=== PATIENT | male | born 1970 | race Two or more races ===

== ENCOUNTER → 2023-10-14 | Outpatient (CLI) | payer MEDICAID ==
[~2023-10-14] VITALS: Ht 175.3 cm; Wt 78.5 kg
[~2023-10-14] MED LIST: ADENOSINE 66 MG in GIVE UN-DILUTED 0 ML IV ONE; ADENOSINE 90 MG/30 ML INJ IV ONE
== END | disposition home or self-care (01) ==
LOC: Rad HDHVI 09:27
PROVIDERS: ATTEND Internal Medicine Cardiovascular Disease
DX: I25.10 Atherosclerotic heart disease of native coronary artery without angina pectoris (principal); E78.00 Pure hypercholesterolemia, unspecified; R56.9 Unspecified convulsions; I25.2 Old myocardial infarction; R07.9 Chest pain, unspecified; Z82.49 Family history of ischemic heart disease and other diseases of the circulatory system; Z79.899 Other long term (current) drug therapy
CPT/HCPCS: 78452; 93005; 96374; 96375; A9500; J0153

== ENCOUNTER → 2023-10-15 | Outpatient (CLI) | payer MEDICAID | END | disposition home or self-care (01) | LOC: Rad HDHVI 10:46 | PROVIDERS: ATTEND Internal Medicine Cardiovascular Disease | DX: I08.1 Rheumatic disorders of both mitral and tricuspid valves (principal); I11.9 Hypertensive heart disease without heart failure | CPT/HCPCS: 93306 ==

== ENCOUNTER 2024-01-28 07:07 | Inpatient (IN) | payer MEDICAID ==
[2024-01-27 10:44] LABS: Basophils # (auto) 0.1 10 ^3/uL (0-0.2); Basophils % (auto) 0.5 % (0.0-2.0); Eosinophils # (auto) 0.1 10 ^3/uL (0-0.8); Eosinophils % (auto) 0.6 % (0.0-7.0); Hematocrit 36.3 % (41.0-53.0); Lymphocytes % (auto) 16.3 % (10.0-50.0); Mean Corpuscular Hgb Conc. 32.9 g/dL (32.0-36.0); Mean Corpuscular Volume 84.9 fL (80.0-100.0); Monocytes # (auto) 0.7 10 ^3/uL (0-1.3); Monocytes % (auto) 5.9 % (0.0-12.0); Neutrophils # (auto) 9.2 10 ^3/uL (1.6-8.6); Neutrophils % (auto) 76.7 % (37.0-80.0); Nucleated Red Blood Cells % 0.1 %; Red Blood Cells 4.28 10^6/uL (4.5-5.90); Red Cell Distribution Width 13.2 % (11.8-14.3)
[2024-01-27 11:05] LABS: INR 1.03 (0.9-1.15); Partial Thromboplastin Time 32.2 SEC (24.5-34.5); Prothrombin Time 10.9 sec (9.3-11.8)
[2024-01-27 11:06] LABS: Anion Gap 6 (5-15); Carbon Dioxide 27 mmol/L (20-30); Chloride 109 mmol/L (98-107); Potassium 3.6 mmol/L (3.5-5.1); Sodium 142 mmol/L (136-145)
[2024-01-27 11:07] LABS: Calcium 9.4 mg/dL (8.5-10.1)
[2024-01-27 11:12] LABS: BUN/Creatinine Ratio 7.1 (10.0-20.0); Blood Urea Nitrogen 6 mg/dL (9-23); Glucose 99 mg/dL (74-106)
[2024-01-28] VITALS (16 sets, daily range): BP systolic 105–130; BP diastolic 67–85; PULSE 60–82; RESP 12–20; TEMP 97.8–98.3; O2SAT 93–98
[~2024-01-28] VITALS: Ht 172.7 cm; Wt 85.0 kg
[~2024-01-28 07:07] MED LIST changes: -ADENOSINE 66 MG in GIVE UN-DILUTED 0 ML IV ONE; -ADENOSINE 90 MG/30 ML INJ IV ONE; +APIX5TAB PO; +FURO1TAB33 PO; +HYDR-4798 PO; +POTA-228 PO; +PREG100C PO
[2024-01-28] MEDS: IOHEXOL 350 MG/ML 100ML IJ ONE (07:54)
[2024-01-28] MEDS: LIDOCAINE 2%HCL (LOCAL ANESTH.) INJ 20ML MDV ONE (07:54)
[2024-01-28] MEDS ORDERED: LEVO25TA2 PO (08:04)
[2024-01-28] MEDS ORDERED: POM PO ×2 (08:07→08:23)
[2024-01-28] MEDS ORDERED: IPRAAER6 IN (08:18)
[2024-01-28] MEDS ORDERED: HYDR-4072 PO (08:18)
[2024-01-28] MEDS ORDERED: ACET-1803 PO (08:19)
[2024-01-28] MEDS: fentaNYL CITRATE 100 MCG/2 ML VL ONE (11:07)
[2024-01-28] MEDS: ANGIOMAX 250 MG VIAL IV ONE (11:07)
[2024-01-28] MEDS: MIDAZOLAM HCL 2MG/2ML 2ml VIAL (1mg/ml) ONE (11:07)
[2024-01-28] MEDS: SODIUM CHL 0.9% 0 ML ONE (11:08)
[2024-01-28] MEDS ORDERED: MORPHINE SULFATE INJ 2 MG/ml SYRG IV PRN (12:15)
[2024-01-28] MEDS ORDERED: NITROGLYCERIN 0.4 MG SL TAB SL PRN (12:15)
[2024-01-28] MEDS: HYDROcodone-ACET 10/325MG TAB ONE (14:03)
[2024-01-28] MEDS: HYDROcodone-ACET 10/325MG TAB PO PRN (14:04)
[2024-01-28] MEDS ORDERED: PATIENTS OWN MEDICATION (Pregabalin (Lyrica) 1 CAP) PO SCH (18:00)
[2024-01-28] MEDS: ALBUTEROL SULF 2.5 MG/0.5ML(0.5%) NEB SOLN NEB SCH (18:08)
[2024-01-28] MEDS: IPRATROPIUM BROM 0.5 MG/2.5ML INH SOL NEB SCH (18:08)
[2024-01-28] MEDS: PREGABALIN 25 MG CAP PO SCH (21:42)
[2024-01-28] MEDS: PREGABALIN CAPSULE 75 MG CAP PO SCH (21:43)
[2024-01-28] MEDS: FUROSEMIDE 20 MG TAB PO SCH (21:59)
[2024-01-28] MEDS ORDERED: IPRATROPIUM-ALBUTEROL 20mCg/100mCg INHALER IN SCH (22:00)
[2024-01-28] MEDS ORDERED: hydrOXYzine HCL 10 MG TAB PO PRN (22:00)
[2024-01-28] MEDS: MIRTAZAPINE 7.5 MG PO SCH (22:00)
[2024-01-28] MEDS ORDERED: ACETAMINOPHEN 650 MG PO PRN (22:00)
[2024-01-29] VITALS (12 sets, daily range): BP systolic 116–127; BP diastolic 56–81; PULSE 71–112; RESP 17–20; TEMP 96.8–98.7; O2SAT 95–99
[2024-01-29] MEDS: LEVOTHYROXINE SODIUM 25 MCG TAB PO SCH (10:14)
[2024-01-29] MEDS: APIXABAN 5 MG TAB PO SCH (10:14)
[2024-01-29] MEDS: POTASSIUM CHLORIDE 8 MEQ PO SCH (10:16)
[2024-01-29] MEDS: IPRATROPIUM BROM 0.5 MG/2.5ML INH SOL NEB SCH (21:06)
[2024-01-29] MEDS: ALBUTEROL SULF 2.5 MG/0.5ML(0.5%) NEB SOLN NEB SCH (21:06)
[2024-01-29] MEDS: FUROSEMIDE 20 MG TAB PO SCH (21:41)
[2024-01-30] VITALS (13 sets, daily range): BP systolic 109–126; BP diastolic 63–82; PULSE 64–90; RESP 16–18; TEMP 96.8–98.2; O2SAT 80–100
[2024-01-30] MEDS: APIXABAN 5 MG TAB PO SCH (06:31)
[2024-01-30] MEDS: LEVOTHYROXINE SODIUM 25 MCG TAB PO SCH (06:37)
[2024-01-30] MEDS: POTASSIUM CHLORIDE 8 MEQ PO SCH (06:40)
[2024-01-30 12:10] LABS: Alanine Aminotransferase 19 U/L (7-40); Albumin 4.7 g/dL (3.2-4.8); Alkaline Phosphatase 91 U/L (46-116); Anion Gap 3 (5-15); Aspartate Aminotransferase 13 U/L (13-40); BUN/Creatinine Ratio 6.7 (10.0-20.0); Blood Urea Nitrogen 6 mg/dL (9-23); Calcium 9.6 mg/dL (8.5-10.1); Carbon Dioxide 29 mmol/L (20-30); Chloride 109 mmol/L (98-107); Glucose 87 mg/dL (74-106); Potassium 3.3 mmol/L (3.5-5.1); Sodium 141 mmol/L (136-145)
[2024-01-30 12:11] LABS: Bilirubin, Total 1.3 mg/dL (0.2-1.0)
[2024-01-30] MEDS ORDERED: POTASSIUM EFFERVESENT TAB 25 MEQ PO PRN (13:00)
[2024-01-30] MEDS: POTASSIUM CHL 20 Meq TABLET PO PRN (14:52)
[2024-01-31] VITALS (12 sets, daily range): BP systolic 106–132; BP diastolic 66–89; PULSE 71–97; RESP 16–20; TEMP 97.5–98.4; O2SAT 96–100
[2024-02-01] VITALS (13 sets, daily range): BP systolic 107–142; BP diastolic 74–80; PULSE 64–93; RESP 15–18; TEMP 97.4–98.7; O2SAT 97–100
[2024-02-01 09:48] LABS: Basophils # (auto) 0.1 10 ^3/uL (0-0.2); Basophils % (auto) 0.8 % (0.0-2.0); Eosinophils # (auto) 0.1 10 ^3/uL (0-0.8); Eosinophils % (auto) 1.1 % (0.0-7.0); Hematocrit 41.9 % (41.0-53.0); Lymphocytes # (auto) 2.1 10 ^3/uL (0.4-5.4); Mean Corpuscular Hemoglobin 28.7 pg (28.0-32.0); Mean Corpuscular Hgb Conc. 33.3 g/dL (32.0-36.0); Mean Corpuscular Volume 86.4 fL (80.0-100.0); Monocytes # (auto) 0.7 10 ^3/uL (0-1.3); Monocytes % (auto) 7.4 % (0.0-12.0); Neutrophils # (auto) 6.2 10 ^3/uL (1.6-8.6); Neutrophils % (auto) 67.7 % (37.0-80.0); Nucleated Red Blood Cells % 0.1 %; Red Blood Cells 4.86 10^6/uL (4.5-5.90); Red Cell Distribution Width 13.6 % (11.8-14.3); White Blood Cell 9.1 10^3/uL (4.4-10.8)
[2024-02-01 10:15] LABS: Alanine Aminotransferase 21 U/L (7-40); Albumin 4.4 g/dL (3.2-4.8); Alkaline Phosphatase 84 U/L (46-116); Anion Gap 3 (5-15); Aspartate Aminotransferase 13 U/L (13-40); BUN/Creatinine Ratio 12.6 (10.0-20.0); Bilirubin, Total 0.9 mg/dL (0.2-1.0); Blood Urea Nitrogen 12 mg/dL (9-23); Calcium 9.8 mg/dL (8.5-10.1); Carbon Dioxide 27 mmol/L (20-30); Chloride 111 mmol/L (98-107); Glucose 81 mg/dL (74-106); Potassium 4.1 mmol/L (3.5-5.1); Sodium 141 mmol/L (136-145); Total Protein 7.1 g/dL (5.7-8.2)
[2024-02-02] VITALS (17 sets, daily range): BP systolic 98–144; BP diastolic 60–86; PULSE 71–96; RESP 16–20; TEMP 97.3–98.2; O2SAT 94–100
[2024-02-03] VITALS (15 sets, daily range): BP systolic 105–125; BP diastolic 70–81; PULSE 73–98; RESP 16–20; TEMP 97.9–98.5; O2SAT 96–100
[2024-02-04] VITALS (18 sets, daily range): BP systolic 106–129; BP diastolic 66–96; PULSE 78–111; RESP 14–20; TEMP 97.6–98.4; O2SAT 95–100
[2024-02-04 09:00] LABS: Urine Bacteria None Seen /hpf (None Seen)
[2024-02-04 09:12] LABS: Urine Blood Negative /uL (Negative); Urine Clarity Clear (Clear); Urine Color Light-Yellow (Yellow); Urine Protein, UAD Negative (Negative); Urine Specific Gravity 1.018 (1.001-1.035); Urine Urobilinogen Normal (Negative); Urine WBC 1 /hpf (0 - 3); Urine pH 6.5 (5.0-9.0)
[2024-02-04 09:47] LABS: Prothrombin Time 10.6 sec (9.3-11.8)
[2024-02-04] MEDS: MIDAZOLAM HCL 2MG/2ML 2ml VIAL (1mg/ml) ONE (12:50)
[2024-02-04] MEDS: fentaNYL CITRATE 100 MCG/2 ML VL ONE (12:50)
[2024-02-04] MEDS: VANCOMYCIN HCL 1000 MG VL ONE (12:50)
[2024-02-04] MEDS: LIDOCAINE 2%HCL (LOCAL ANESTH.) INJ 20ML MDV ONE (12:56)
[2024-02-04] MEDS: VANCOMYCIN 1GM/200ML 200 ML IV ONE (12:56)
[2024-02-04] MEDS: FUROSEMIDE 20 MG/2 ML VIAL ONE (14:02)
[2024-02-05] VITALS (7 sets, daily range): BP systolic 113–145; BP diastolic 65–78; PULSE 83–103; RESP 15–20; TEMP 98–98.3; O2SAT 92–100
[2024-02-05] MEDS: VANCOMYCIN 1GM/200ML 200 ML IV SCH (01:00)
== END 2024-02-05 16:50 | disposition home or self-care (01) | DRG 179 ==
LOC: CATH 07:07 → TELE 12:18 → TELE-CENTR 17:11
PROVIDERS: ADMIT Internal Medicine Cardiovascular Disease; ATTEND Internal Medicine Cardiovascular Disease
PROC: B211YZZ Fluoroscopy of Multiple Coronary Arteries using Other Contrast (ICD-10-PCS; principal; 2024-01-28)
PROC: B215YZZ Fluoroscopy of Left Heart using Other Contrast (ICD-10-PCS; 2024-01-28)
PROC: 4A023N7 Measurement of Cardiac Sampling and Pressure, Left Heart, Percutaneous Approach (ICD-10-PCS; 2024-01-28)
PROC: 0JH609Z Insertion of Cardiac Resynchronization Defibrillator Pulse Generator into Chest Subcutaneous Tissue and Fascia, Open Approach (ICD-10-PCS; 2024-02-04)
PROC: 02H63KZ Insertion of Defibrillator Lead into Right Atrium, Percutaneous Approach (ICD-10-PCS; 2024-02-04)
PROC: 02HL3KZ Insertion of Defibrillator Lead into Left Ventricle, Percutaneous Approach (ICD-10-PCS; 2024-02-04)
PROC: 02HK3KZ Insertion of Defibrillator Lead into Right Ventricle, Percutaneous Approach (ICD-10-PCS; 2024-02-04)
PROC: B5171ZZ Fluoroscopy of Left Subclavian Vein using Low Osmolar Contrast (ICD-10-PCS; 2024-02-04)
PROC: 4A0234Z Measurement of Cardiac Electrical Activity, Percutaneous Approach (ICD-10-PCS; 2024-02-04)
DX: I25.10 Atherosclerotic heart disease of native coronary artery without angina pectoris (principal); I47.20 Ventricular tachycardia, unspecified; E11.51 Type 2 diabetes mellitus with diabetic peripheral angiopathy without gangrene; I25.5 Ischemic cardiomyopathy; I11.0 Hypertensive heart disease with heart failure; R56.9 Unspecified convulsions; E78.5 Hyperlipidemia, unspecified; I50.22 Chronic systolic (congestive) heart failure; E87.6 Hypokalemia; Z89.611 Acquired absence of right leg above knee; Z86.73 Personal history of transient ischemic attack (TIA), and cerebral infarction without residual deficits; Z82.49 Family history of ischemic heart disease and other diseases of the circulatory system; Z83.3 Family history of diabetes mellitus; Z88.5 Allergy status to narcotic agent; Z79.899 Other long term (current) drug therapy; Z87.891 Personal history of nicotine dependence; I25.2 Old myocardial infarction; Z95.1 Presence of aortocoronary bypass graft
CPT/HCPCS: 33249; 36415; 71045; 80048; 80053; 81001; 83880; 85025; 85610; 85730; 86850; 86900; 86901; 93005; 93458; 93640; 94640; 99152; G0378; J2250; Q9967

== ENCOUNTER → 2024-03-15 | Outpatient (CLI) | payer MEDICAID ==
[~2024-03-15] MED LIST changes: +ACET-1803 PO; +IPRAAER6 IN; +LEVO25TA2 PO; +POM PO
[2024-03-15 09:10] VITALS: BP 124/77; PULSE 73; RESP 16; O2SAT 97
[2024-03-15 09:19] VITALS: BP 124/71; PULSE 73; RESP 16; O2SAT 97
== END | disposition home or self-care (01) ==
LOC: Rad HDHVI 08:52
PROVIDERS: ATTEND Internal Medicine Cardiovascular Disease
DX: Z01.818 Encounter for other preprocedural examination (principal); I65.21 Occlusion and stenosis of right carotid artery; Z95.0 Presence of cardiac pacemaker
CPT/HCPCS: 71046; 93005; G0463

== ENCOUNTER 2024-03-17 08:04 | Day surgery (SDC) | payer MEDICAID ==
[2024-03-15 11:51] LABS: Basophils # (auto) 0.1 10 ^3/uL (0-0.2); Basophils % (auto) 0.7 % (0.0-2.0); Eosinophils # (auto) 0.1 10 ^3/uL (0-0.8); Eosinophils % (auto) 0.7 % (0.0-7.0); Hematocrit 36.3 % (41.0-53.0); Hemoglobin 12.3 g/dL (13.5-17.5); Lymphocytes # (auto) 2.2 10 ^3/uL (0.4-5.4); Lymphocytes % (auto) 23.5 % (10.0-50.0); Mean Corpuscular Hemoglobin 28.5 pg (28.0-32.0); Mean Corpuscular Hgb Conc. 33.9 g/dL (32.0-36.0); Mean Corpuscular Volume 83.9 fL (80.0-100.0); Monocytes # (auto) 0.7 10 ^3/uL (0-1.3); Monocytes % (auto) 7.3 % (0.0-12.0); Neutrophils # (auto) 6.2 10 ^3/uL (1.6-8.6); Neutrophils % (auto) 67.8 % (37.0-80.0); Nucleated Red Blood Cells % 0.1 %; Platelet Count (auto) 287 10^3/uL (140-450); Red Blood Cells 4.33 10^6/uL (4.5-5.90); Red Cell Distribution Width 13.6 % (11.8-14.3); White Blood Cell 9.2 10^3/uL (4.4-10.8)
[2024-03-15 12:07] LABS: INR 1.06 (0.9-1.15); Partial Thromboplastin Time 34.6 SEC (24.5-34.5); Prothrombin Time 11.2 sec (9.3-11.8)
[2024-03-15 12:21] LABS: Chloride 109 mmol/L (98-107); Potassium 3.7 mmol/L (3.5-5.1); Sodium 141 mmol/L (136-145)
[2024-03-15 12:22] LABS: Anion Gap 6 (5-15); Calcium 9.5 mg/dL (8.7-10.4); Carbon Dioxide 26 mmol/L (20-30)
[2024-03-15 12:27] LABS: BUN/Creatinine Ratio 11.1 (10.0-20.0); Blood Urea Nitrogen 10 mg/dL (9-23); Glucose 112 mg/dL (74-106)
[2024-03-17] VITALS (9 sets, daily range): BP systolic 94–121; BP diastolic 70–87; PULSE 69–87; RESP 12–18; O2SAT 93–100
[~2024-03-17] VITALS: Ht 175.3 cm; Wt 79.8 kg
[~2024-03-17 08:04] MED LIST changes: -POM PO
[2024-03-17] MEDS ORDERED: ANGIOMAX 250 MG VIAL IV ONE (09:30)
[2024-03-17] MEDS ORDERED: LIDOCAINE 2%HCL (LOCAL ANESTH.) INJ 20ML MDV ONE ×2 (09:31→09:53)
[2024-03-17] MEDS ORDERED: MIDAZOLAM HCL 2MG/2ML 2ml VIAL (1mg/ml) ONE (09:31)
[2024-03-17] MEDS ORDERED: SODIUM CHL 0.9% 50 ML ONE (09:31)
[2024-03-17] MEDS ORDERED: fentaNYL CITRATE 100 MCG/2 ML VL ONE (09:31)
[2024-03-17] MEDS ORDERED: ATROPINE SULF 1 MG/10ml SYR ONE (09:40)
[2024-03-17] MEDS ORDERED: HYDROmorphone HCL 2 MG/ML VL/or syr ONE (09:55)
[2024-03-17] MEDS ORDERED: CLOPIDOGREL BISULFATE 75 MG TAB ONE (10:11)
== END 2024-03-17 12:49 | disposition home or self-care (01) ==
LOC: CATH 08:04
PROVIDERS: ATTEND Internal Medicine Cardiovascular Disease
DX: R07.9 Chest pain, unspecified (principal); I25.10 Atherosclerotic heart disease of native coronary artery without angina pectoris; I25.84 Coronary atherosclerosis due to calcified coronary lesion; I11.0 Hypertensive heart disease with heart failure; I50.9 Heart failure, unspecified; R06.02 Shortness of breath; Z95.5 Presence of coronary angioplasty implant and graft; Z87.891 Personal history of nicotine dependence; Z82.49 Family history of ischemic heart disease and other diseases of the circulatory system; Z81.0 Family history of intellectual disabilities
CPT/HCPCS: 36415; 80048; 85025; 85610; 85730; 93458; C1724; C1760; C1769; C1874; C1887; C1894; C9602; J0583; J1170; J1644; J2250; J3010; 99152; C9601

== ENCOUNTER 2024-04-15 14:28 | Inpatient (IN) | payer MEDICAID ==
[~2024-04-15] VITALS: Ht 175.3 cm; Wt 80.5 kg
[2024-04-15 15:13] LABS: Basophils # (auto) 0 10 ^3/uL (0-0.2); Basophils % (auto) 0.4 % (0.0-2.0); Eosinophils # (auto) 0.1 10 ^3/uL (0-0.8); Eosinophils % (auto) 0.6 % (0.0-7.0); Hematocrit 36.3 % (41.0-53.0); Hemoglobin 12.3 g/dL (13.5-17.5); Lymphocytes # (auto) 1.9 10 ^3/uL (0.4-5.4); Lymphocytes % (auto) 17.3 % (10.0-50.0); Mean Corpuscular Volume 85.1 fL (80.0-100.0); Monocytes # (auto) 0.7 10 ^3/uL (0-1.3); Monocytes % (auto) 6.3 % (0.0-12.0); Neutrophils # (auto) 8.2 10 ^3/uL (1.6-8.6); Neutrophils % (auto) 75.4 % (37.0-80.0); Nucleated Red Blood Cells % 0.2 %; Platelet Count (auto) 260 10^3/uL (140-450); Red Blood Cells 4.26 10^6/uL (4.5-5.90); Red Cell Distribution Width 13.9 % (11.8-14.3); White Blood Cell 10.9 10^3/uL (4.4-10.8)
[2024-04-15] MEDS: SODIUM CHLORIDE 0.9% 1,000 ML IV ONE ×2 (15:23→16:35)
[2024-04-15 15:26] LABS: Chloride 112 mmol/L (98-107); Potassium 3.6 mmol/L (3.5-5.1); Sodium 142 mmol/L (136-145)
[2024-04-15 15:27] LABS: Anion Gap 4 (5-15); Calcium 9.3 mg/dL (8.7-10.4); Carbon Dioxide 26 mmol/L (20-30)
[2024-04-15 15:32] LABS: BUN/Creatinine Ratio 13.7 (10.0-20.0); Blood Urea Nitrogen 13 mg/dL (9-23); Glucose 90 mg/dL (74-106)
[2024-04-15 15:46] VITALS: PULSE 59; RESP 18; O2SAT 98
[2024-04-15 19:30] VITALS: RESP 17; O2SAT 94
[2024-04-15] MEDS: HYDROcodone-ACET 10/325MG TAB PO ONE (20:38)
[2024-04-15] MEDS: PREGABALIN 25 MG CAP PO ONE (20:39)
[2024-04-15] MEDS ORDERED: ONDANSETRON HCL 4 MG/2 ML VIAL IV PRN (23:15)
[2024-04-15] MEDS ORDERED: ACETAMINOPHEN 325 MG TAB PO PRN (23:15)
[2024-04-15] MEDS ORDERED: DOCUSATE SOD 100 MG CAP PO PRN (23:15)
[2024-04-15] MEDS: SODIUM CHLORIDE 0.9% 1,000 ML IV SCH (23:28)
[2024-04-15] MEDS ORDERED: NITROGLYCERIN 0.4 MG SL TAB SL PRN (23:30)
[2024-04-15] MEDS ORDERED: MORPHINE SULFATE INJ 2 MG/ml SYRG IV PRN (23:30)
[2024-04-16 02:15] VITALS: BP 119/71; PULSE 69; RESP 17; TEMP 97.7; O2SAT 96
[2024-04-16] MEDS ORDERED: PAR20T PO (02:23)
[2024-04-16 04:26] LABS: Basophils # (auto) 0.1 10 ^3/uL (0-0.2); Basophils % (auto) 0.6 % (0.0-2.0); Eosinophils # (auto) 0.1 10 ^3/uL (0-0.8); Eosinophils % (auto) 0.9 % (0.0-7.0); Hemoglobin 11.2 g/dL (13.5-17.5); Lymphocytes # (auto) 2.1 10 ^3/uL (0.4-5.4); Lymphocytes % (auto) 24.2 % (10.0-50.0); Mean Corpuscular Hemoglobin 28.4 pg (28.0-32.0); Monocytes # (auto) 0.6 10 ^3/uL (0-1.3); Monocytes % (auto) 7.2 % (0.0-12.0); Neutrophils # (auto) 5.8 10 ^3/uL (1.6-8.6); Neutrophils % (auto) 67.1 % (37.0-80.0); Platelet Count (auto) 234 10^3/uL (140-450); Red Blood Cells 3.95 10^6/uL (4.5-5.90); Red Cell Distribution Width 13.6 % (11.8-14.3); White Blood Cell 8.6 10^3/uL (4.4-10.8)
[2024-04-16 04:48] LABS: Alanine Aminotransferase 12 U/L (7-40); Albumin 3.7 g/dL (3.2-4.8); Alkaline Phosphatase 67 U/L (46-116); Anion Gap 6 (5-15); Aspartate Aminotransferase 10 U/L (13-40); BUN/Creatinine Ratio 16.3 (10.0-20.0); Bilirubin, Total 1.8 mg/dL (0.2-1.0); Blood Urea Nitrogen 13 mg/dL (9-23); Calcium 8.7 mg/dL (8.7-10.4); Carbon Dioxide 23 mmol/L (20-30); Chloride 114 mmol/L (98-107); Glucose 96 mg/dL (74-106); Potassium 3.5 mmol/L (3.5-5.1); Sodium 143 mmol/L (136-145); Total Protein 6.2 g/dL (5.7-8.2)
[2024-04-16 05:00] VITALS: BP 110/66; PULSE 73; RESP 17; TEMP 98; O2SAT 95
[2024-04-16] MEDS: LEVOTHYROXINE SODIUM 25 MCG TAB PO SCH (06:01)
[2024-04-16 09:00] VITALS: BP 111/70; PULSE 77; RESP 18; TEMP 98.4; O2SAT 98
[2024-04-16] MEDS: PREGABALIN 25 MG CAP PO SCH (09:53)
[2024-04-16] MEDS: APIXABAN 5 MG TAB PO SCH (09:55)
== END 2024-04-16 12:08 | disposition left against medical advice (07) | DRG 815 ==
LOC: EDBD 14:28 → ER 14:28 → TELE 23:19 → TELE-WESTW 04-16 02:01
PROVIDERS: ADMIT Nurse Practitioner Family; ATTEND Nurse Practitioner Family
DX: T67.5XXA Heat exhaustion, unspecified, initial encounter (principal); Z89.611 Acquired absence of right leg above knee; I25.2 Old myocardial infarction; R11.2 Nausea with vomiting, unspecified; Z88.5 Allergy status to narcotic agent; Z98.61 Coronary angioplasty status; X30.XXXA Exposure to excessive natural heat, initial encounter; Y93.89 Activity, other specified; Y92.89 Other specified places as the place of occurrence of the external cause; Y99.8 Other external cause status
CPT/HCPCS: 36415; 80048; 80053; 84443; 84484; 85025; 96360; 96361; 99291; G0378

== ENCOUNTER 2024-04-28 06:33 | Day surgery (SDC) | payer MEDICAID ==
[2024-04-26 11:51] LABS: Basophils # (auto) 0 10 ^3/uL (0-0.2); Basophils % (auto) 0.5 % (0.0-2.0); Eosinophils # (auto) 0 10 ^3/uL (0-0.8); Eosinophils % (auto) 0.4 % (0.0-7.0); Hematocrit 36.6 % (41.0-53.0); Hemoglobin 12.3 g/dL (13.5-17.5); Lymphocytes # (auto) 1.9 10 ^3/uL (0.4-5.4); Lymphocytes % (auto) 18.5 % (10.0-50.0); Mean Corpuscular Hemoglobin 28.8 pg (28.0-32.0); Mean Corpuscular Hgb Conc. 33.6 g/dL (32.0-36.0); Mean Corpuscular Volume 85.7 fL (80.0-100.0); Monocytes # (auto) 0.6 10 ^3/uL (0-1.3); Monocytes % (auto) 6.2 % (0.0-12.0); Neutrophils # (auto) 7.6 10 ^3/uL (1.6-8.6); Neutrophils % (auto) 74.4 % (37.0-80.0); Platelet Count (auto) 297 10^3/uL (140-450); Red Blood Cells 4.27 10^6/uL (4.5-5.90); Red Cell Distribution Width 13.7 % (11.8-14.3); White Blood Cell 10.3 10^3/uL (4.4-10.8)
[2024-04-26 12:00] LABS: Chloride 110 mmol/L (98-107); Potassium 3.3 mmol/L (3.5-5.1); Sodium 142 mmol/L (136-145)
[2024-04-26 12:01] LABS: Anion Gap 6 (5-15); Carbon Dioxide 26 mmol/L (20-30)
[2024-04-26 12:02] LABS: Calcium 9.2 mg/dL (8.7-10.4)
[2024-04-26 12:06] LABS: Glucose 94 mg/dL (74-106)
[2024-04-26 12:07] LABS: BUN/Creatinine Ratio 8.2 (10.0-20.0); Blood Urea Nitrogen 7 mg/dL (9-23)
[2024-04-26 12:13] LABS: INR 1.01 (0.9-1.15); Partial Thromboplastin Time 29.1 SEC (24.5-34.5); Prothrombin Time 10.9 sec (9.3-11.8)
[~2024-04-28] VITALS: Ht 175.3 cm; Wt 80.3 kg
[2024-04-28] VITALS (7 sets, daily range): BP systolic 120–134; BP diastolic 71–90; PULSE 72–93; RESP 14–16; O2SAT 94–97
[~2024-04-28 06:33] MED LIST changes: -APIX5TAB PO; +CLOP75TA28 PO; +HYDRX10T PO; +MIRT1TAB38 PO
[2024-04-28] MEDS ORDERED: MIDAZOLAM HCL 2MG/2ML 2ml VIAL (1mg/ml) ONE (08:17)
[2024-04-28] MEDS ORDERED: fentaNYL CITRATE 100 MCG/2 ML VL ONE (08:17)
[2024-04-28] MEDS ORDERED: ANGIOMAX 250 MG VIAL IV ONE (08:17)
[2024-04-28] MEDS ORDERED: LIDOCAINE 2%HCL (LOCAL ANESTH.) INJ 20ML MDV ONE (08:18)
[2024-04-28] MEDS ORDERED: SODIUM CHL 0.9% 50 ML ONE (08:18)
[2024-04-28] MEDS: CLOPIDOGREL BISULFATE 75 MG TAB PO ONE (10:05)
== END 2024-04-28 11:28 | disposition home or self-care (01) ==
LOC: CATH 06:33
PROVIDERS: ATTEND Internal Medicine Cardiovascular Disease
DX: R06.02 Shortness of breath (principal); I25.10 Atherosclerotic heart disease of native coronary artery without angina pectoris; I11.0 Hypertensive heart disease with heart failure; I50.9 Heart failure, unspecified; Z95.5 Presence of coronary angioplasty implant and graft; Z87.891 Personal history of nicotine dependence; Z88.5 Allergy status to narcotic agent; Z88.6 Allergy status to analgesic agent; Z81.8 Family history of other mental and behavioral disorders; Z82.49 Family history of ischemic heart disease and other diseases of the circulatory system; Z79.01 Long term (current) use of anticoagulants
CPT/HCPCS: 36415; 80048; 85025; 85610; 85730; 92972; 93454; C1760; C1761; C1769; C1874; C1887; C1894; C9600; J0583; J1644; J2250; J3010; J7030; Q9967; 99152; 99153

== ENCOUNTER → 2024-05-31 | Outpatient (CLI) | payer MEDICAID | END | disposition home or self-care (01) | LOC: Rad HDHVI 08:17 | PROVIDERS: ATTEND Internal Medicine Cardiovascular Disease | DX: I08.1 Rheumatic disorders of both mitral and tricuspid valves (principal); I11.0 Hypertensive heart disease with heart failure; I50.23 Acute on chronic systolic (congestive) heart failure | CPT/HCPCS: 93306 ==

== ENCOUNTER 2024-10-03 12:21 | Inpatient (IN) | payer MEDICAID ==
[~2024-10-03] VITALS: Ht 175.3 cm; Wt 78.9 kg
[~2024-10-03 12:21] MED LIST changes: +ATOR80TA PO; +MIRT1TAB PO; +NALO1TAB4 PO; +POTA-180 PO; +PREG150C63 PO
[2024-10-03 13:05] LABS: Basophils # (auto) 0.1 10 ^3/uL (0-0.2); Basophils % (auto) 0.5 % (0.0-2.0); Eosinophils # (auto) 0 10 ^3/uL (0-0.8); Eosinophils % (auto) 0.3 % (0.0-7.0); Hematocrit 34.7 % (41.0-53.0); Hemoglobin 11.4 g/dL (13.5-17.5); Lymphocytes # (auto) 2.3 10 ^3/uL (0.4-5.4); Mean Corpuscular Hgb Conc. 32.9 g/dL (32.0-36.0); Mean Corpuscular Volume 85.3 fL (80.0-100.0); Monocytes # (auto) 0.7 10 ^3/uL (0-1.3); Monocytes % (auto) 5.7 % (0.0-12.0); Neutrophils # (auto) 9.7 10 ^3/uL (1.6-8.6); Neutrophils % (auto) 75.5 % (37.0-80.0); Platelet Count (auto) 225 10^3/uL (140-450); Red Blood Cells 4.07 10^6/uL (4.5-5.90); Red Cell Distribution Width 13.6 % (11.8-14.3); White Blood Cell 12.9 10^3/uL (4.4-10.8)
--- NOTE | 2024-10-03 13:08 | DVH ---
CHEST RADIOGRAPH Indication: CP/sob Technique: Single frontal view of the chest was obtained COMPARISON: None FINDINGS: Lines and Tubes: Left chest wall AICD Lungs: Congestion Pleura: No effusion. No pneumothorax. Cardiomediastinal contours: Unremarkable Bones: Unremarkable IMPRESSION: Pulmonary vascular congestion
[2024-10-03 13:23] LABS: Alanine Aminotransferase 13 U/L (7-40); Albumin 4.6 g/dL (3.2-4.8); Alkaline Phosphatase 105 U/L (46-116); Anion Gap 6 (5-15); Aspartate Aminotransferase 28 U/L (13-40); BUN/Creatinine Ratio 12.9 (10.0-20.0); Blood Urea Nitrogen 12 mg/dL (9-23); Calcium 9.5 mg/dL (8.7-10.4); Carbon Dioxide 26 mmol/L (20-31); Glucose 98 mg/dL (74-106); Magnesium 2.1 mg/dL (1.6-2.6); Potassium 3.9 mmol/L (3.5-5.1); Sodium 142 mmol/L (136-145)
[2024-10-03 13:24] LABS: Total Protein 7.4 g/dL (5.7-8.2)
[2024-10-03 13:25] LABS: Bilirubin, Total 2.1 mg/dL (0.2-1.0); Chloride 110 mmol/L (98-107)
[2024-10-03] MEDS: IPRATROPIUM BROM 0.5 MG/2.5ML INH SOL NEB ONE (14:22)
[2024-10-03] MEDS: ALBUTEROL SULF 2.5 MG/0.5ML(0.5%) NEB SOLN NEB ONE (14:22)
--- NOTE | 2024-10-03 14:24 | ED.PDOC ---
HPI Comments 54 y.o male with PMHx of CHF, DC x4 and pneumonia, presents to the ED for a chief complaint of SOB associated with substernal chest pain induced by a productive cough last night. Patient described chest pain as more of an irritation, non radiating and not actively present at this time. Patient had similar SOB in the past in which he was diagnosed with pneumonia usually after flying. Patient does admit recently flying and PCP referred him to the ED to rule out pneumonia and/or CHF today. Patient denies any leg swelling, chills, fever, nausea, vomiting, abdominal pain. Patient has a previous history of tobacco use but quit 5 years ago. Patient is on Lasix and has been compliant with taking it with the rest of his medications. Chief Complaint: Chest Pain Time Seen by MD: 13:56 Primary Care Provider: dia Reviewed Notes: Nurses Notes, Medications, Allergies Allergies: Coded Allergies: Codeine (Verified Allergy, Unknown, 04/26/24) Morphine (Verified Allergy, Unknown, 04/26/24) Home Meds Reported Medications Hydroxyzine Hcl (Hydroxyzine Hcl) 10 Mg Tab, 10 MG PO HS, MG 04/26/24 Mirtazapine (Mirtazapine Oral Disintegrating Tablet) 15 Mg Tab, 0.5 TAB PO QPM, #30 TAB 3 Refills 04/26/24 Clopidogrel Bisulfate (Plavix) 75 Mg Tab, 1 TAB PO DAILY for SP STENT, #90 TAB 1 Refill 04/26/24 Acetaminophen (Acetaminophen ER 8 Hour) 650 Mg Tab, 650 MG PO PRN, TAB 01/28/24 Ipratropium-Albuterol (COMBIVENT RESPIMAT) Respimat Aer, 20 MCG IN BID, AER 01/28/24 Levothyroxine Sodium (Synthroid) 25 Mcg Tab, 1 TAB PO DAILY, #30 TAB 5 Refills 01/28/24 Pregabalin (Lyrica) 100 Mg Cap, 1 CAP PO QID for NERVE PAIN, #90 CAP 2 Refills 01/27/24 Hydrocodone-Acetaminophen (Hydrocodone Bitartrate/AC 10-325 mg) 1 Tab Tab, 1 TAB PO TIDP PRN for PAIN SCALE 7 THRU 10, TAB 01/27/24 Furosemide (Lasix) 20 Mg Tb, 1 TAB PO BID for EDEMA, #90 TAB 1 Refill 01/27/24 Potassium Chloride (Potassium Chloride ER) 10 Meq Tab, 8 MEQ PO DAILY for SUPPLEMENT, TAB 01/27/24 Information Source: Patient, Spouse Mode of Arrival: Wheelchair Severity: Moderate Timing: Hours Duration: Since onset Location: Substernal Radiation: No Radiation Quality: Aching Onset: At Rest PE Risk Factors: None History of: Similar pain in past, DC Modifying Factors: Nothing Associated Signs and Symptoms: SOB Past Medical History PAST MEDICAL HISTORY: CAD, CHF, DC (4) Past Medical History (Other): PNA Surgical History: AKA (right ), PTCA Surgical History (Other): ICD Family History Family History: Unknown Social History Smoker: Non-Smoker Alcohol: Occasionally Drugs: Marijuana Lives In: Home Constitutional: denies: chills, diaphoresis, fatigue, fever, malaise, sweats, weakness, others EENTM: denies: blurred vision, double vision, ear bleeding, ear discharge, ear drainage, ear pain, ear ringing, eye pain, eye redness, hearing loss, mouth pain, mouth swelling, nasal discharge, nose bleeding, nose congestion, nose pain, photophobia, tearing, throat pain, throat swelling, voice changes, others Respiratory: reports: cough, SOB at rest, shortness of breath, SOB with excertion; denies: hemoptysis, orthopnea, stridor, wheezing, others Cardiovascular: reports: chest pain; denies: dizzy spells, diaphoresis, Dyspnea on exertion, edema, irregular heart beat, left arm pain, lightheadedness, palpitations, PND, syncope, others Gastrointestinal: denies: abdomen distended, abdominal pain, blood streaked bowels, constipated, diarrhea, dysphagia, difficulty swallowing, hematemesis, melena, nausea, poor appetite, poor fluid intake, rectal bleeding, rectal pain, vomiting, others Genitourinary: denies: burning, dysuria, flank pain, frequency, hematuria, incontinence, penile discharge, penile sore, pain, testicle pain, testicle swelling, urgency, others Neurological: denies: dizziness, fainting, headache, left sided numbness, left sided weakness, numbness, paresthesia, pre-existing deficit, right sided numbness, right sided weakness, seizure, speech problems, tingling, tremors, weakness, others Musculoskeletal: denies: back pain, gout, joint pain, joint swelling, muscle pain, muscle stiffness, neck pain, others Integumetry: denies: bruises, change in color, change in hair/nails, dryness, laceration, lesions, lumps, rash, wounds, others Allergic/Immunocompromised: denies: Difficulty Healing, Frequent Infections, Hives, Itching, others Hematologic/Lymphatic: denies: anemia, blood clots, easy bleeding, easy bruising, swollen glands, others Endocrine: denies: excessive hunger, excessive sweating, excessive thirst, excessive urination, flushing, intolerance to cold, intolerance to heat, unexplained weight gain, unexplained weight loss, others Psychiatric: denies: anxiety, bipolar disorder, depression, hopeless, panic disorder, schizophrenia, sleepless, suicidal, others All Other Systems: Reviewed and Negative Physical Exam General Appearance: Mild Distress HEENT: Other (Pupils symmetric, moist mucous membranes, no facial asymmetry) Neck: Full Range of Motion, Normal Inspection Respiratory: Crackles, No Accessory Muscle Use, No Respiratory Distress, Normal Breath Sounds, Rales Cardiovascular: No JVD, Regular Rate/Rhythm Breast Exam: Deferred Gastrointestinal: Non Tender, Soft Genitalia: Deferred Pelvic: Deferred Rectal: Deferred Extremities: Leg edema (Trace left), Pedal edema (Trace left), Other (Right AKA) Neurologic: Alert (Oriented x4), Normal Affect, Normal Mood, Other (Moves all extremities. No gross focal deficit.) Cerebellar Function: NOT DONE Reflexes: NOT DONE Skin: Dry, Normal Color, Warm Lymphatic: NOT DONE EKG EKG : Comments Atrial sensed ventricular paced rhythm, rate 92 Was a procedure done? Was a procedure done?: No CP Differential Dx Differential Diagnosis: Angina, Anxiety / Panic Attack, Heart Failure, DC, Pulmonary Embolus Differential Diagnosis: CHF Differential Diagnosis: Angina, Chest Wall Pain, Costochondritis, Gastritis, Myocardial Infarction, Pericarditis, Pneumonia, Pulmonary Embolus X-Ray, Labs, Meds, VS Vital Signs Date Time Temp Pulse Resp B/P (MAP) Pulse Ox O2 Delivery O2 Flow Rate FiO2 10/03/24 20:00 97 22 114/77 (89) 96 10/03/24 20:00 98.0 98.0 10/03/24 20:00 95 10/03/24 19:53 94.0 93 16 116/77 97 0.0 94.0 10/03/24 19:50 97 Room Air* 0 21 10/03/24 19:50 97 Room Air 0.0 10/03/24 18:00 94 16 117/80 (92) 95 10/03/24 17:00 99 14 108/93 (98) 93 10/03/24 16:00 98 23 121/79 (93) 94 10/03/24 15:28 121/86 10/03/24 15:00 82 24 121/86 (98) 98 10/03/24 14:30 Room Air* 0 N/A Nasal Cannula* 10/03/24 14:29 88 14 114/79 (91) 98 10/03/24 14:22 18 97 Room Air* 0 21 10/03/24 12:35 98.0 88 17 109/77 (88) 100 10/03/24 12:28 92 Lab Test 10/03/24 17:53 10/03/24 15:29 10/03/24 13:47 10/03/24 12:36 Range/Units Prothrombin Time 11.1 9.3-11.8 sec Prothrombin Time INR 1.05 0.9-1.15 Activated Partial Thromboplast Time 31.5 24.5-34.5 SEC Troponin I High Sensitivity 4299 *H 4402 *H 3900 *H </=54 ng/L White Blood Count 12.9 H 4.4-10.8 10^3/uL Red Blood Count 4.07 L 4.5-5.90 10^6/uL Hemoglobin 11.4 L 13.5-17.5 g/dL Hematocrit 34.7 L 41.0-53.0 % Mean Corpuscular Volume 85.3 80.0-100.0 fL Mean Corpuscular Hemoglobin 28.0 28.0-32.0 pg Mean Corpuscular Hemoglobin Concent 32.9 32.0-36.0 g/dL Red Cell Distribution Width 13.6 11.8-14.3 % Platelet Count 225 140-450 10^3/uL Mean Platelet Volume 10.1 6.9-10.8 fL Neutrophils (%) (Auto) 75.5 37.0-80.0 % Lymphocytes (%) (Auto) 18.0 10.0-50.0 % Monocytes (%) (Auto) 5.7 0.0-12.0 % Eosinophils (%) (Auto) 0.3 0.0-7.0 % Basophils (%) (Auto) 0.5 0.0-2.0 % Neutrophils # (Auto) 9.7 H 1.6-8.6 10 ^3/uL Lymphocytes # (Auto) 2.3 0.4-5.4 10 ^3/uL Monocytes # (Auto) 0.7 0-1.3 10 ^3/uL Eosinophils # (Auto) 0 0-0.8 10 ^3/uL Basophils # (Auto) 0.1 0-0.2 10 ^3/uL Nucleated Red Blood Cells 0.0 % D-Dimer, Quantitative 0.84 H 0.0-0.49 mg/L FEU Sodium Level 142 136-145 mmol/L Potassium Level 3.9 3.5-5.1 mmol/L Chloride Level 110 H 98-107 mmol/L Carbon Dioxide Level 26 20-31 mmol/L Anion Gap 6 5-15 Blood Urea Nitrogen 12 9-23 mg/dL Creatinine 0.93 0.700-1.30 mg/dL Glomerular Filtration Rate Calc 96 >90 mL/min BUN/Creatinine Ratio 12.9 10.0-20.0 Serum Glucose 98 74-106 mg/dL Calcium Level 9.5 8.7-10.4 mg/dL Magnesium Level 2.1 1.6-2.6 mg/dL Total Bilirubin 2.1 H 0.2-1.0 mg/dL Aspartate Amino Transferase (AST) 28 13-40 U/L Alanine Aminotransferase (ALT) 13 7-40 U/L Alkaline Phosphatase 105 46-116 U/L B-Type Natriuretic Peptide 825.98 0-100 pg/mL Total Protein 7.4 5.7-8.2 g/dL Albumin 4.6 3.2-4.8 g/dL Thyroid Stimulating Hormone (TSH) 0.51 L 0.55-4.78 uIU/mL Current Medications Medications (Trade) Dose Ordered Sig/Jackie Route Start Time Stop Time Status Last Admin Albuterol (Ventolin Medneb) 5 mg ONCE ONCE NEB 10/03/24 14:15 10/03/24 14:16 DC 10/03/24 14:22 Ipratropium [place] (Atrovent Medneb) 0.5 mg ONCE ONCE NEB 10/03/24 14:15 10/03/24 14:16 DC 10/03/24 14:22 Furosemide (Lasix Injection) 40 mg ONCE ONCE IV 10/03/24 14:15 10/03/24 14:16 DC 10/03/24 15:28 Heparin Sodium/ Dextrose 250 ml @ 10 mls/hr Q24H IV 10/03/24 17:00 10/03/24 17:14 [place] [id number] Ph: [phone] DIAGNOSTIC IMAGING Diagnostic Imaging Report : [id number] Signed PATIENT: DONA BRYANT FACCT: [id number] UNIT: [id number] : 1970 LOC: ER ROOM / BED: / AGE / SEX: 54 / M ADM STATUS: REG ER SERVICE [id number] ORDERING PHYSICIAN: INDU WING MD PROCEDURE(s): CXRP - CHEST PORTABLE REASON: CP/sob ORDER NUMBER(s): [id number], ACCESSION NUMBER(s): [id number] CHEST RADIOGRAPH Indication: CP/sob Technique: Single frontal view of the chest was obtained COMPARISON: None FINDINGS: Lines and Tubes: Left chest wall AICD Lungs: Congestion Pleura: No effusion. No pneumothorax. Cardiomediastinal contours: Unremarkable Bones: Unremarkable IMPRESSION: Pulmonary vascular congestion ATED BY: PETE RICE MD DICTATED DATE/TIME: 10/03/24 1306 SIGNED BY: PETE RICE MD SIGNED DATE/TIME: 10/03/24 1306 CC: PROCEDURE(s): CTACH - CT ANGIO CHEST CONTRAST REASON: cp, hi dimer and trop, r/o PE ORDER NUMBER(s): [id number], ACCESSION NUMBER(s): [id number] EXAM: CT Angiography Chest With Intravenous Contrast CLINICAL INDICATION: cp, hi dimer and trop, r/o PE TECHNIQUE: Axial computed tomographic angiography images of the chest with intravenous contrast. This CT exam was performed using one or more of the following dose reduction techniques: automated exposure control, adjustment of the mA and/or kV according to patient size, and/or use of iterative reconstruction technique. MIP reconstructed images were created and reviewed. CONTRAST: COMPARISON: Comparison FINDINGS: LIMITATIONS: Suboptimal opacification of the pulmonary arteries. PULMONARY ARTERIES: No pulmonary embolism is identified. Some of the distal pulmonary arteries cannot be evaluated due to suboptimal opacification. AORTA: Scattered calcified atherosclerotic disease of aorta. No thoracic aortic aneurysm. LUNGS AND PLEURAL SPACES: Lung emphysema. Dependent atelectasis. No mass. No significant effusion. No pneumothorax. HEART: Unremarkable. No cardiomegaly. No significant pericardial effusion. No evidence of RV dysfunction. MEDIASTINUM: Small esophageal hiatal hernia. BONES/JOINTS: No acute fracture. No dislocation. SOFT TISSUES: Unremarkable. LYMPH NODES: Unremarkable. No enlarged lymph nodes. LIVER: Hepatic cysts. OTHER FINDINGS: . . . .. IMPRESSION: 1. No pulmonary embolism is identified. Some of the distal pulmonary arteries cannot be evaluated due to suboptimal opacification. 2. Small esophageal hiatal hernia. X-Ray, Labs, Meds, VS Comment 54-year-old male with history of CHF, Coronary artery disease, DC complaining of chest pain and shortness of breath after a plane flight Vitals unremarkable Exam remarkable for bilateral rales, no respiratory distress at rest, trace lower extremity edema Rhythm strip independently interpreted by me: Atrial sensed ventricular paced rhythm, rate 92, no ectopy. EKG atrial sensed ventricular paced rhythm at rate 92 Chest x-ray pulmonary vascular congestion CT angio chest IMPRESSION: 1. No pulmonary embolism is identified. Some of the distal pulmonary arteries cannot be evaluated due to suboptimal opacification. 2. Small esophageal hiatal hernia. CBC remarkable for WBC 12.9, CMP unremarkable for any abnormality of acute significance, BNP 825.98, D-dimer 0.84 Serial troponins 3900, 4402, 4299 Patient treated with the following in the ED: Aspirin 325 mg p.o., albuterol 5 mg/Atrovent 0.5 mg nebulized, Lasix 40 mg IV, heparin per protocol On re-evaluation, patient states he is not actively having chest pain. Vitals are stable. He was not short of breath, and oxygen saturation is normal. Plan is to admit the patient for ongoing serial troponins and cardiology evaluation. Time of 1ST Reevaluation: 14:17 Reevaluation 1ST: Unchanged Patient Education/Counseling: Diagnosis, Treatment, Prognosis Family Education/Counseling: Diagnosis, Treatment, Prognosis Departure 1 Departure Time of Disposition: 16:39 Impression: Primary Impression: Non-STEMI (non-ST elevated myocardial infarction) Additional Impression: CHF exacerbation Qualified Codes: I50.9 - Heart failure, unspecified Disposition: 09 ADMITTED INPATIENT Admit to: Tele Condition: Guarded Critical Care Note Critical Care Time?: Yes (45 min-critical care time only) Critical care comment: Critical care time includes multiple bedside re-evaluations, review of lab and imaging studies, discussion of the case with the admitting provider. Patient was high-risk for hemodynamic and/or respiratory decompensation. Stability Stability form required: No Heart Score Heart Score: Heart Score Response (Comments) Value History Highly Suspicious 2 EKG Normal 0 Age 45-64 1 Risk Factors >3 or Hx ASHD 2 Troponin >3 x's Normal limit 2 Total 7 I personally scribed for INDU WING MD ([facility] on 10/03/24 at 14:24. Electronically submitted by Alondra Saha ([facility]). I personally scribed for [facility]DU WING MD ([facility] on 10/03/24 at 14:53. Electronically submitted by Alondra Saha ([facility]). INDU WING MD Oct 03, 2024 14:24
[2024-10-03] MEDS: FUROSEMIDE 40 MG/4 ML VIAL IV ONE (15:28)
[2024-10-03] MEDS: ASPirin 325 MG TAB PO ONE (16:30)
[2024-10-03] MEDS: IOHEXOL 350 MG/ML 100ML IJ ONE (16:32)
--- NOTE | 2024-10-03 17:13 | DVH ---
EXAM: CT Angiography Chest With Intravenous Contrast CLINICAL INDICATION: cp, hi dimer and trop, r/o PE TECHNIQUE: Axial computed tomographic angiography images of the chest with intravenous contrast. Th is CT exam was performed using one or more of the following dose reduction techniques: automated exp osure control, adjustment of the mA and/or kV according to patient size, and/or use of iterative дмитрий nstruction technique. MIP reconstructed images were created and reviewed. CONTRAST: COMPARISON: Comparison FINDINGS: LIMITATIONS: Suboptimal opacification of the pulmonary arteries. PULMONARY ARTERIES: No pulmonary embolism is identified. Some of the distal pulmonary arteries can not be evaluated due to suboptimal opacification. AORTA: Scattered calcified atherosclerotic disease of aorta. No thoracic aortic aneurysm. LUNGS AND PLEURAL SPACES: Lung emphysema. Dependent atelectasis. No mass. No significant effusio n. No pneumothorax. HEART: Unremarkable. No cardiomegaly. No significant pericardial effusion. No evidence of RV dys function. MEDIASTINUM: Small esophageal hiatal hernia. BONES/JOINTS: No acute fracture. No dislocation. SOFT TISSUES: Unremarkable. LYMPH NODES: Unremarkable. No enlarged lymph nodes. LIVER: Hepatic cysts. OTHER FINDINGS: . . . .. IMPRESSION: 1. No pulmonary embolism is identified. Some of the distal pulmonary arteries cannot be evaluated d ue to suboptimal opacification. 2. Small esophageal hiatal hernia.
[2024-10-03] MEDS: HEPARIN DRIP/D5W 100UNITS/ML 250 ML IV SCH (17:14)
[2024-10-03 18:30] LABS: INR 1.05 (0.9-1.15); Partial Thromboplastin Time 31.5 SEC (24.5-34.5); Prothrombin Time 11.1 sec (9.3-11.8)
[2024-10-03] MEDS ORDERED: DOCUSATE SOD 100 MG CAP PO PRN (19:30)
[2024-10-03 19:40] VITALS: PULSE 93; RESP 16; O2SAT 97
[2024-10-03 19:50] VITALS: O2SAT 97
[2024-10-03 19:53] VITALS: BP 116/77; PULSE 93; RESP 16; TEMP 94; O2SAT 97
--- NOTE | 2024-10-03 20:13 | DVHHP2 ---
History of Present Illness Reason for Visit: Non-STEMI (non-ST elevated myocardial infarction) History of Present Illness The patient is a 54-year-old male with past medical history of MS, CHF, Coronary artery disease, and pneumonia who presented to [facility] ED with complaint of shortness of breaths. Patient reports symptoms progressively get worse with substernal chest pain, nonradiating, rating 7/10 numeric scale, associated productive cough, increased work of breathing, getting worse that prompted this visit. Patient was seen and evaluated in the ED, laboratory data shows WBC 12.9, platelets 225, sodium 142, potassium 3.9, BUN 12, creatinine 0.93, GFR 96, glucose 98, troponin 3900, BNP 825.98, D-dimer 0.84. Chest x-ray revealing pulmonary vascular congestion. Patient was started on heparin drip, given IV Lasix, please see medication orders section in the computer. On my assessment, patient denied chest pain at this moment, no headache, no dizziness, no diaphoresis, currently on oxygen, no diarrhea, no nausea, no vomiting, no fever, no chills. Patient was admitted for further evaluation and medical management. Past Medical History CAD, CHF, MS (4), PNA Past Surgical History AKA (right ), PTCA, ICD Family History Reviewed, noncontributory to the management of this case. Past Social History The patient lives at home, drinks alcohol occasionally, denies alcohol, uses marijuana. Review of Systems Constitutional: No: Fever, Chills, Sweats, Weakness, Malaise, Other Eyes: No: Pain, Vision change, Conjunctivae inflammation, Eyelid inflammation, Other, Redness ENT: No: Ear pain, Ear discharge, Nose pain, Nose discharge, Nose congestion, Mouth pain, Mouth swelling, Throat pain, Throat swelling, Other Respiratory: Cough, Shortness of breath, SOB with excertion, Other (SOB at rest); No: Dry, Wheezing, Hemoptysis, Pleuritic Pain, Sputum, Wheezing Cardiovascular: Chest Pain; No: Palpitations, Orthopnea, Paroxysmal Noc. Dyspnea, Edema, Lt Headedness, Other Gastrointestinal: No: Nausea, Vomiting, Abdominal Pain, Diarrhea, Constipation, Melena, Hematochezia, Other Genitourinary: No Dysuria, No Frequency, No Incontinence, No Hematuria, No Rete ntion, No Other Musculoskeletal: No: other, neck pain, shoulder pain, arm pain, back pain, hand pain, leg pain, foot pain Skin: No: Rash, Lesions, Jaundice, Bruising, Other Neurological: No: Weakness, Numbness, Incoordination, Change in speech, Confusion, Seizures, Other Allergies: Coded Allergies: Codeine (Verified Allergy, Unknown, 04/26/24) Morphine (Verified Allergy, Unknown, 04/26/24) Medications Current Medications Medications Dose Ordered Sig/Jackie Route Start Time Stop Time Status Last Admin Dose Admin Heparin Sodium/ Dextrose 250 ml @ 10 mls/hr Q24H IV 10/03/24 17:00 10/03/24 17:14 10 MLS/HR Furosemide 40 mg DAILY IV 10/04/24 10:00 Albuterol 2.5 mg Q4HPRN PRN NEB 10/03/24 19:30 Ipratropium [place] 0.5 mg Q4HPRN PRN NEB 10/03/24 19:30 Levothyroxine Sodium 25 mcg QAM@0600 PO 10/04/24 06:00 Atorvastatin Calcium 20 mg HS PO 10/03/24 22:00 Sodium Chloride 10 ml Q8HR IV 10/03/24 22:00 Ondansetron HCl 4 mg Q4HP PRN IV 10/03/24 19:30 Docusate Sodium 100 mg BIDPRN PRN PO 10/03/24 19:30 Acetaminophen 650 mg Q6HP PRN PO 10/03/24 19:30 Exam Vital Signs Vital Signs Date Time Temp Pulse Resp B/P (MAP) Pulse Ox O2 Delivery O2 Flow Rate FiO2 10/03/24 19:53 94.0 93 16 116/77 97 0.0 94.0 10/03/24 14:30 Room Air* N/A Nasal Cannula* General Appearance: Alert, Oriented X3, Cooperative, No acute distress HEENT: Atraumatic, PERRLA, EOMI, Mucous membr. moist/pink Respiratory: Normal air movement, Other (Diminished breath sounds) Cardiovascular: Regular rate, Normal S1, Normal S2, No murmurs Abdominal: Normal bowel sounds, Soft, No tenderness, No hepatospenomegaly, No masses Extremities: No clubbing, No cyanosis, No edema, Normal pulses, No tenderness/ swelling Skin: No rashes, No breakdown, No significant lesion Neuro: Normal gait, Normal speech, Strength at 5/5 X4 ext, Normal tone, Sensation intact, Cranial nerves 3-12 NL, Reflexes 2+ Psych/Mental Status: Mental status NL, Mood NL Labs/Xrays Labs Test 10/03/24 17:53 10/03/24 15:29 10/03/24 12:36 Range/Units Prothrombin Time 11.1 9.3-11.8 sec Prothrombin Time INR 1.05 0.9-1.15 Activated Partial Thromboplast Time 31.5 24.5-34.5 SEC Troponin I High Sensitivity 4299 *H </=54 ng/L White Blood Count 12.9 H 4.4-10.8 10^3/uL Red Blood Count 4.07 L 4.5-5.90 10^6/uL Hemoglobin 11.4 L 13.5-17.5 g/dL Hematocrit 34.7 L 41.0-53.0 % Mean Corpuscular Volume 85.3 80.0-100.0 fL Mean Corpuscular Hemoglobin 28.0 28.0-32.0 pg Mean Corpuscular Hemoglobin Concent 32.9 32.0-36.0 g/dL Red Cell Distribution Width 13.6 11.8-14.3 % Platelet Count 225 140-450 10^3/uL Mean Platelet Volume 10.1 6.9-10.8 fL Neutrophils (%) (Auto) 75.5 37.0-80.0 % Lymphocytes (%) (Auto) 18.0 10.0-50.0 % Monocytes (%) (Auto) 5.7 0.0-12.0 % Eosinophils (%) (Auto) 0.3 0.0-7.0 % Basophils (%) (Auto) 0.5 0.0-2.0 % Neutrophils # (Auto) 9.7 H 1.6-8.6 10 ^3/uL Lymphocytes # (Auto) 2.3 0.4-5.4 10 ^3/uL Monocytes # (Auto) 0.7 0-1.3 10 ^3/uL Eosinophils # (Auto) 0 0-0.8 10 ^3/uL Basophils # (Auto) 0.1 0-0.2 10 ^3/uL Nucleated Red Blood Cells 0.0 % D-Dimer, Quantitative 0.84 H 0.0-0.49 mg/L FEU Sodium Level 142 136-145 mmol/L Potassium Level 3.9 3.5-5.1 mmol/L Chloride Level 110 H 98-107 mmol/L Carbon Dioxide Level 26 20-31 mmol/L Anion Gap 6 5-15 Blood Urea Nitrogen 12 9-23 mg/dL Creatinine 0.93 0.700-1.30 mg/dL Glomerular Filtration Rate Calc 96 >90 mL/min BUN/Creatinine Ratio 12.9 10.0-20.0 Serum Glucose 98 74-106 mg/dL Calcium Level 9.5 8.7-10.4 mg/dL Magnesium Level 2.1 1.6-2.6 mg/dL Total Bilirubin 2.1 H 0.2-1.0 mg/dL Aspartate Amino Transferase (AST) 28 13-40 U/L Alanine Aminotransferase (ALT) 13 7-40 U/L Alkaline Phosphatase 105 46-116 U/L B-Type Natriuretic Peptide 825.98 0-100 pg/mL Total Protein 7.4 5.7-8.2 g/dL Albumin 4.6 3.2-4.8 g/dL PATIENT: DONA BRYANT FACCT: [id number] UNIT: [id number] : 1970 LOC: ER ROOM / BED: / AGE / SEX: 54 / M ADM STATUS: REG ER SERVICE [id number] ORDERING PHYSICIAN: INDU WING MD PROCEDURE(s): CXRP - CHEST PORTABLE REASON: CP/sob ORDER NUMBER(s): [id number], ACCESSION NUMBER(s): [id number] CHEST RADIOGRAPH Indication: CP/sob Technique: Single frontal view of the chest was obtained COMPARISON: None FINDINGS: Lines and Tubes: Left chest wall AICD Lungs: Congestion Pleura: No effusion. No pneumothorax. Cardiomediastinal contours: Unremarkable Bones: Unremarkable IMPRESSION: Pulmonary vascular congestion ORDERING PHYSICIAN: INDU WING MD PROCEDURE(s): CTACH - CT ANGIO CHEST CONTRAST REASON: cp, hi dimer and trop, r/o PE ORDER NUMBER(s): [id number], ACCESSION NUMBER(s): [id number] EXAM: CT Angiography Chest With Intravenous Contrast CLINICAL INDICATION: cp, hi dimer and trop, r/o PE TECHNIQUE: Axial computed tomographic angiography images of the chest with intravenous contrast. This CT exam was performed using one or more of the following dose reduction techniques: automated exposure control, adjustment of the mA and/or kV according to patient size, and/or use of iterative reconstruction technique. MIP reconstructed images were created and reviewed. CONTRAST: COMPARISON: Comparison FINDINGS: LIMITATIONS: Suboptimal opacification of the pulmonary arteries. PULMONARY ARTERIES: No pulmonary embolism is identified. Some of the distal pulmonary arteries cannot be evaluated due to suboptimal opacification. AORTA: Scattered calcified atherosclerotic disease of aorta. No thoracic aortic aneurysm. LUNGS AND PLEURAL SPACES: Lung emphysema. Dependent atelectasis. No mass. No significant effusion. No pneumothorax. HEART: Unremarkable. No cardiomegaly. No significant pericardial effusion. No evidence of RV dysfunction. MEDIASTINUM: Small esophageal hiatal hernia. BONES/JOINTS: No acute fracture. No dislocation. SOFT TISSUES: Unremarkable. LYMPH NODES: Unremarkable. No enlarged lymph nodes. LIVER: Hepatic cysts. OTHER FINDINGS: IMPRESSION: 1. No pulmonary embolism is identified. Some of the distal pulmonary arteries cannot be evaluated due to suboptimal opacification. 2. Small esophageal hiatal hernia. Assessment/Plan Assessment/Plan Non-STEMI (non-ST elevated myocardial infarction) Leukocytosis, unspecified Elevated D-dimer Acute on chronic systolic heart failure Plan 1. Admit to telemetry unit 2. Breathing treatment 3. Pain control management 4. Management of fluids and electrolytes 5. Consultation for cardiology 6. Diagnostic tests chest x-ray 7. DVT prophylaxis-on heparin drip 8. Repeat labs CBC, CMP in a.m. 9. Continue with current medical management 10. Treatment plan discussed with patient and RN. Patient verbalized u nderstanding. Plan discussed with: Patient, Other (RN) My Orders Orders - CHRISSY NAVARRETE DNP Procedure Category Date Status Time Furosemide Injection PHA 10/04/24 In Process (Lasix Injection) 10:00 Albuterol Medneb PHA 10/03/24 In Process (Ventolin Medneb) 19:30 Ipratropium Medneb PHA 10/03/24 In Process (Atrovent Medneb) 19:30 Levothyroxine Tablet PHA 10/04/24 In Process (Synthroid Tablet) 06:00 Thyroid Stimulating LAB 10/03/24 Logged Hormone 19:25 Atorvastatin (Lipitor) PHA 10/03/24 In Process 22:00 * Cardiology Consult CONS 10/03/24 Transmitted 19:25 Allergies TOY 10/03/24 In Process 19:25 Code Status CODE 10/03/24 Transmitted 19:25 Sodium Chloride Lock PHA 10/03/24 In Process (Saline Lock Ns) 22:00 Oxygen Per Hour RT 10/03/24 Transmitted 19:25 Ondansetron Hcl PHA 10/03/24 In Process (Zofran) 19:30 Docusate Sodium PHA 10/03/24 In Process Capsule (Colace 19:30 Complete Blood Count LAB 10/04/24 Verified 04:00 Comprehensive LAB 10/04/24 Verified Metabolic Panel 04:00 Cardiac DIET 10/04/24 Transmitted Diet-2gna,Lofat,Lochol Breakfast Echo 2d Mode Cardiac US 10/03/24 Logged DOP 19:25 Condition: Serious TOY 10/03/24 In Process 19:25 Acetaminophen Tablet PHA 10/03/24 In Process (Tylenol Tablet) 19:30 Bedrest With Bathroom TOY 10/03/24 In Process Privileg 19:25 Sequential TOY 10/03/24 In Process Compression Device Problem List: (1) Non-STEMI (non-ST elevated myocardial infarction) (2) Leukocytosis, unspecified (3) Elevated d-dimer (4) Acute on chronic systolic heart failure Date of Service: Oct 03, 2024 Billing Provider: CHRISSY NAVARRETE DNP Common Visit Codes: [id number] INP/OBS CARE (HIGH) CHRISSY NAVARRETE DNP Oct 03, 2024 20:13
[2024-10-03] MEDS ORDERED: NITROGLYCERIN 0.4 MG SL TAB SL PRN (20:15)
[2024-10-03] MEDS: ATORVASTATIN 20 MG TAB PO SCH (22:00)
[2024-10-03] MEDS: SODIUM CHLOR 0.9% PF (SALINE LOCK) 10ML VIAL/SYR IV SCH (22:00)
[2024-10-04] VITALS (10 sets, daily range): BP systolic 108–124; BP diastolic 70–77; PULSE 90–96; RESP 17–21; TEMP 98.1–98.7; O2SAT 93–99
[2024-10-04 00:39] LABS: INR 1.06 (0.9-1.15); Partial Thromboplastin Time 39.4 SEC (24.5-34.5); Prothrombin Time 11.2 sec (9.3-11.8)
[2024-10-04] MEDS: HEPARIN DRIP/D5W 100UNITS/ML 250 ML IV SCH ×2 (01:00→09:26)
--- NOTE | 2024-10-04 01:37 | ECG ---
[facility] Test Date: 2024-10-03 Test Time: 12:28:04 Pat Name: DONA BRYANT Department: ER Room: 0288T Gender: M Gauger Chief: SANDRA : 1970 Requested By: INDU DAIGLE Order Number: [id number] Reading MD: Darrius Bose Measurements Intervals [place] Rate: 92 P: 64 [place]: 187 QRS: -29 QRSD: 116 T: 93 QT: 377 QTc: 467 Interpretive Statements Atrial-sensed ventricular-paced complexes No further analysis attempted due to paced rhythm Baseline wander in lead(s) V6 Electronically Signed On 10-06-2024 10:43:47 PST by Darrius Bose Please click the below link to view image of tracing.
[2024-10-04] MEDS: LEVOTHYROXINE SODIUM 25 MCG TAB PO SCH (06:37)
[2024-10-04 07:14] LABS: Basophils # (auto) 0.1 10 ^3/uL (0-0.2); Basophils % (auto) 0.5 % (0.0-2.0); Eosinophils # (auto) 0 10 ^3/uL (0-0.8); Eosinophils % (auto) 0.2 % (0.0-7.0); Hematocrit 39.5 % (41.0-53.0); Hemoglobin 13.1 g/dL (13.5-17.5); Lymphocytes # (auto) 3.1 10 ^3/uL (0.4-5.4); Lymphocytes % (auto) 22.7 % (10.0-50.0); Mean Corpuscular Hemoglobin 27.9 pg (28.0-32.0); Mean Corpuscular Hgb Conc. 33.2 g/dL (32.0-36.0); Monocytes # (auto) 0.8 10 ^3/uL (0-1.3); Monocytes % (auto) 5.8 % (0.0-12.0); Neutrophils # (auto) 9.5 10 ^3/uL (1.6-8.6); Neutrophils % (auto) 70.8 % (37.0-80.0); Platelet Count (auto) 219 10^3/uL (140-450); Red Cell Distribution Width 13.2 % (11.8-14.3); White Blood Cell 13.4 10^3/uL (4.4-10.8)
[2024-10-04 07:36] LABS: INR 1.08 (0.9-1.15); Partial Thromboplastin Time 49.7 SEC (24.5-34.5); Prothrombin Time 11.4 sec (9.3-11.8)
[2024-10-04 07:39] LABS: Alanine Aminotransferase 13 U/L (7-40); Albumin 4.7 g/dL (3.2-4.8); Alkaline Phosphatase 111 U/L (46-116); Anion Gap 8 (5-15); Aspartate Aminotransferase 36 U/L (13-40); BUN/Creatinine Ratio 13.2 (10.0-20.0); Blood Urea Nitrogen 12 mg/dL (9-23); Calcium 9.9 mg/dL (8.7-10.4); Carbon Dioxide 26 mmol/L (20-31); Glucose 104 mg/dL (74-106); Sodium 143 mmol/L (136-145)
[2024-10-04 07:40] LABS: Total Protein 7.6 g/dL (5.7-8.2)
[2024-10-04 07:54] LABS: Bilirubin, Total 3.8 mg/dL (0.2-1.0); Chloride 109 mmol/L (98-107); Potassium 3.5 mmol/L (3.5-5.1)
[2024-10-04] MEDS: FUROSEMIDE 40 MG/4 ML VIAL IV SCH (10:00)
[2024-10-04] MEDS: CLOPIDOGREL BISULFATE 75 MG TAB PO ONE (12:45)
--- NOTE | 2024-10-04 13:58 | DVHPN2 ---
Progress Note - Dictate Date Seen: Oct 04, 2024 Medical Necessity Reason Pt with a Central, PICC or Fol: No Subjective PT WITH CHEST PAIN PROGRESSIVE SX OF SOB I WAS CALLED TODAY BUT PT WAS IN THE ER YESTERDAY AT AROUND 1PM PMH: CAD HX OF [place] CHF S/P * Left main calcified, no flow restrictive lesion. * Left anterior descending artery had a calcified 90% narrowing, status post angioplasty with shockwave and stent placement with less than 10% residual stenosis. * Ostial circumflex had a 95% narrowing, status post angioplasty with shockwave followed by a stent placement with a 3.0 x 8 mm [place] stent with less than 10% residual stenosis. * Right coronary artery, previous site of angioplasty, stent placement, was patent with no residual stenosis noted. vital signs Vital Sign Date Time Temp Pulse Resp B/P (MAP) Pulse Ox O2 Delivery O2 Flow Rate FiO2 10/04/24 12:11 Nasal Cannula* 2 28 10/04/24 12:11 98.1 92 17 114/77 (89) 99 98.1 Total Intake and Output 10/03/24 10/03/24 10/04/24 15:00 23:00 07:00 Intake Total 40 ml 68 ml Output Total 800 ml 325 ml Balance -760 ml -257 ml medications Current Medications Medications Dose Ordered Sig/Jackie Route Start Time Stop Time Status Last Admin Dose Admin Albuterol 2.5 mg Q4HPRN PRN NEB 10/03/24 19:30 Ipratropium [place] 0.5 mg Q4HPRN PRN NEB 10/03/24 19:30 Levothyroxine Sodium 25 mcg QAM@0600 PO 10/04/24 06:00 10/04/24 06:37 25 MCG Atorvastatin Calcium 20 mg HS PO 10/03/24 22:00 Sodium Chloride 10 ml Q8HR IV 10/03/24 22:00 Ondansetron HCl 4 mg Q4HP PRN IV 10/03/24 19:30 Docusate Sodium 100 mg BIDPRN PRN PO 10/03/24 19:30 Acetaminophen 650 mg Q6HP PRN PO 10/03/24 19:30 Nitroglycerin 0.4 mg Q5MINP PRN SL 10/03/24 20:15 Heparin Sodium/ Dextrose 250 ml @ 14 mls/hr [id number] IV 10/04/24 09:15 10/04/24 13:12 14 MLS/HR Patient Own Medication 8 meq DAILY PO 10/05/24 10:00 UNV Patient Own Medication 1 cap QID PO 10/04/24 12:00 UNV Clopidogrel Bisulfate 75 mg DAILY PO 10/05/24 10:00 Furosemide 20 mg BIDD IV 10/04/24 18:00 laboratory and microbiology Laboratory Tests 10/04/24 06:52 Test 10/04/24 06:52 Range/Units Serum Glucose 104 74-106 mg/dL Problem List CHEST PAIN PROGRESSIVE SX OF SOB I WAS CALLED TODAY BUT PT WAS IN THE ER YESTERDAY AT AROUND 1PM PMH: CAD HX OF [place] CHF S/P * Left main calcified, no flow restrictive lesion. * Left anterior descending artery had a calcified 90% narrowing, status post angioplasty with shockwave and stent placement with less than 10% residual stenosis. * Ostial circumflex had a 95% narrowing, status post angioplasty with shockwave followed by a stent placement with a 3.0 x 8 mm [place] stent with less than 10% residual stenosis. * Right coronary artery, previous site of angioplasty, stent placement, was patent with no residual stenosis noted. NOW WITH ELEVATED TROPONIN Assessment/Plan LHC IN AM Plan discussed with: Patient Critical Care Time(min): 35 BUSHRA MARQUES MD Oct 04, 2024 13:58
[2024-10-04] MEDS: FUROSEMIDE 20 MG/2 ML VIAL IV ONE (15:11)
[2024-10-04 16:03] LABS: INR 1.08 (0.9-1.15); Partial Thromboplastin Time 59.3 SEC (24.5-34.5); Prothrombin Time 11.4 sec (9.3-11.8)
[2024-10-04] MEDS: FAMOTIDINE 20 MG TAB PO ONE (16:45)
--- NOTE | 2024-10-04 17:05 | DVHPNRES ---
Progress Note Date Seen: Oct 04, 2024 Resident Creating Document: LEENA DOZIER RESIDENT Medical Necessity Reason Pt with a Central, PICC or Fol: No Subjective Review of Systems Patient is 54 years old male with past medical history of severe ischemic cardiomyopathy, LVEF< 10%, HFrEF, STATUS POST PTCA, Bi[place]ron[place] AICD, coronary artery disease, [place] x4, peripheral artery disease, hypothyroidism came with a complaint of chest pain and shortness of breaths. Patient reported he started having chest pain on Thursday when he was coming from [place] to [place] which continued over the hours. Pain was central in nature, pressure-like, found out of 10, no radiation, no aggravating or relieving factor. Patient also endorsed shortness of breath with the chest pain which was getting worse of the time. Patient denied any fever, abdominal pain, dysuria, acute joint pain or swelling, dysarthria or change in vision. Initial lab workup revealed leukocytosis with WBC 12.9> 13.4, elevated total bilirubin 2.1> 3.8, elevated troponin 3900< 4402> 4299, BNP 825.98, TSH 0.51, magnesium 2.1. CXR-Pulmonary vascular congestion. CT angio-No pulmonary embolism is identified. Some of the distal pulmonary arteries cannot be evaluated due to suboptimal opacification. Small esophageal hiatal hernia. PMH- severe ischemic cardiomyopathy, LVEF< 10%, Bi[place] AICD, coronary artery disease, [place] x4, peripheral artery disease, hypothyroidism , Left main calcified, no flow restrictive lesion.* Left anterior descending artery had a calcified 90% narrowing, status post angioplasty with shockwave and stent placement with less than 10% residual stenosis. Ostial circumflex had a 95% narrowing, status post angioplasty with shockwave followed by a stent placement with a 3.0 x 8 mm [place] stent with less than 10% residual stenosis PSH-AKA (right ), PTCA, ICD Allergy-codeine, morphine Personal History/ Social History- alcoholic, use marijuana, ex alcoholic, lives at home Patient was seen today at the bedside. Cardiovascular- deny cough or palpitation Respiratory denies wheezing Gastrointestinal- denies any rectal bleeding, nausea or vomiting Musculoskeletal-denies acute joint swelling or tenderness or redness Neurological- denies acute dysarthria, dysphagia, change in vision Psychiatry- denies depression or SI or HI Skin- denies acute rash or purpura Patient was seen today for clinical evaluation. Less than chart reviewed. Patient reported feeling better today. Patient on [place] O2 2 liter/minute. Patient was seen by Cardiology, recommendation reviewed and appreciated. Patient is scheduled for left heart catheterization tomorrow. Objective vital signs Vital Sign Date Time Temp Pulse Resp B/P (MAP) Pulse Ox O2 Delivery O2 Flow Rate FiO2 10/04/24 15:11 116/74 10/04/24 12:11 Nasal Cannula* 2 28 10/04/24 12:11 98.1 92 17 99 98.1 Total Intake and Output 10/03/24 10/03/24 10/04/24 15:00 23:00 07:00 Intake Total 40 ml 68 ml Output Total 800 ml 325 ml Balance -760 ml -257 ml medications Current Medications Medications Dose Ordered Sig/Jackie Route Start Time Stop Time Status Last Admin Dose Admin Albuterol 2.5 mg Q4HPRN PRN NEB 10/03/24 19:30 Ipratropium [place] 0.5 mg Q4HPRN PRN NEB 10/03/24 19:30 Levothyroxine Sodium 25 mcg QAM@0600 PO 10/04/24 06:00 10/04/24 06:37 25 MCG Atorvastatin Calcium 20 mg HS PO 10/03/24 22:00 Sodium Chloride 10 ml Q8HR IV 10/03/24 22:00 10/04/24 14:00 10 ML Ondansetron HCl 4 mg Q4HP PRN IV 10/03/24 19:30 Docusate Sodium 100 mg BIDPRN PRN PO 10/03/24 19:30 Acetaminophen 650 mg Q6HP PRN PO 10/03/24 19:30 Nitroglycerin 0.4 mg Q5MINP PRN SL 10/03/24 20:15 Heparin Sodium/ Dextrose 250 ml @ 14 mls/hr [id number] IV 10/04/24 09:15 10/04/24 13:12 14 MLS/HR Potassium Chloride 8 meq DAILY PO 10/05/24 10:00 Pregabalin 100 mg QID PO 10/04/24 18:00 Clopidogrel Bisulfate 75 mg DAILY PO 10/05/24 10:00 Furosemide 20 mg BIDD IV 10/04/24 18:00 Examination General examination- awake, alert, oriented HEENT- PEERLA, no acute nasal discharge Cardiovascular- S1-S2 audible, rate and rhythm regular, no murmur Respiratory-bilateral lung crackles+ Gastrointestinal-nontender, bowel sound+. Nondistended Musculoskeletal-no acute joint swelling or tenderness or redness# Lower extremity- no leg edema Neurological- cranial nerves intact, no acute dysarthria or dysphagia Psychiatry- denies depression or SI or HI Skin- no acute rash or purpura laboratory and microbiology Laboratory Tests 10/04/24 06:52 Test 10/04/24 06:52 Range/Units Serum Glucose 104 74-106 mg/dL Problem List/Assessment/Plan Problem List/Assessment/Plan Assessment #Acute coronary syndrome due to NSTEMI type 1 # acute hypoxic respiratory failure due to acute on chronicHFrEF #severe ischemic cardiomyopathy, LVEF< 10%, #HFrEF, #S/P PTCA, Biotronik AICD, #coronary artery disease, [place] x4, #peripheral artery disease, #hypothyroidism #Small esophageal hiatal hernia. Plan of care Continue Plavix 10 mg p.o. daily -continue heparin as prescribed -continue atorvastatin 40 mg p.o. q.h.s. -continue Lasix 20 mg IV b.i.d. -continue levothyroxine 25 mg p.o. q.a.m. -pregabalin 100 mg p.o. q.i.d. -continue other medication as prescribed -patient is due for left heart catheterization tomorrow at a.m. by Dr. Arcos Goals of care/advance care planning; FULL CODE; discussed with the patient >15 minutes PUD prophylaxis: Famotidine DVT prophylaxis: Heparin Plan discussed with Dr. O[place]a , nursing staff, patient Total time spent on patient evaluation, chart review, assessment and plan, discussion discussion >41 minutes Plan discussed with: Patient Plan discussed with: Patient, Other (RN ) My Orders My Orders Orders - LEENA DOZIER RESIDENT Procedure Category Date Status Time Potassium Er Tablet PHA 10/05/24 In Process (Klor-Con Tablet) 10:00 Pregabalin Capsule PHA 10/04/24 In Process (Lyrica Capsule) 18:00 Clopidogrel Bisulfate PHA 10/05/24 In Process (Plavix) 10:00 Furosemide Injection PHA 10/04/24 In Process (Lasix Injection) 18:00 Date of Service: Oct 04, 2024 Billing Provider: ROSY BEAN MD Common Visit Codes: [id number] INP/OBS CARE(HIGH) LEENA DOZIER RESIDENT Oct 04, 2024 17:05 ROSY BEAN MD Oct 09, 2024 23:58
[2024-10-04] MEDS: FUROSEMIDE 20 MG/2 ML VIAL IV SCH (18:08)
[2024-10-04] MEDS: PREGABALIN 25 MG CAP PO SCH (18:08)
[2024-10-04] MEDS: FAMOTIDINE 20 MG TAB PO SCH (21:28)
[2024-10-04] MEDS ORDERED: FUROSEMIDE 20 MG TAB PO SCH (22:00)
[2024-10-04] MEDS: ACETAMINOPHEN 325 MG TAB PO PRN (22:17)
[2024-10-04 22:28] LABS: INR 1.09 (0.9-1.15); Partial Thromboplastin Time 33.8 SEC (24.5-34.5); Prothrombin Time 11.5 sec (9.3-11.8)
[2024-10-05] VITALS (10 sets, daily range): BP systolic 98–108; BP diastolic 58–67; PULSE 74–84; RESP 16–20; TEMP 97.7–98.8; O2SAT 95–99
[2024-10-05 02:50] LABS: Urine Bacteria None Seen /hpf (None Seen)
[2024-10-05 03:00] LABS: Urine Blood Negative /uL (Negative); Urine Clarity Clear (Clear); Urine Color Yellow (Yellow); Urine Hyaline Cast FEW /lpf (0 - 2); Urine Mucus FEW (None Seen); Urine Protein, UAD Negative (Negative); Urine Specific Gravity 1.019 (1.001-1.035); Urine Squamous Epithelial Cell None Seen /hpf (<5); Urine Urobilinogen Normal (Negative); Urine WBC < 1 /HPF (0-3); Urine pH 5.5 (5.0-9.0)
[2024-10-05] MEDS: HEPARIN DRIP/D5W 100UNITS/ML 250 ML IV SCH ×3 (05:56→16:15)
[2024-10-05 06:39] LABS: Basophils # (auto) 0 10 ^3/uL (0-0.2); Basophils % (auto) 0.3 % (0.0-2.0); Eosinophils # (auto) 0 10 ^3/uL (0-0.8); Eosinophils % (auto) 0.4 % (0.0-7.0); Hematocrit 38.7 % (41.0-53.0); Hemoglobin 12.7 g/dL (13.5-17.5); Lymphocytes # (auto) 3.1 10 ^3/uL (0.4-5.4); Lymphocytes % (auto) 26.8 % (10.0-50.0); Mean Corpuscular Hemoglobin 27.6 pg (28.0-32.0); Mean Corpuscular Hgb Conc. 32.8 g/dL (32.0-36.0); Monocytes # (auto) 0.7 10 ^3/uL (0-1.3); Monocytes % (auto) 5.9 % (0.0-12.0); Neutrophils # (auto) 7.8 10 ^3/uL (1.6-8.6); Neutrophils % (auto) 66.6 % (37.0-80.0); Platelet Count (auto) 200 10^3/uL (140-450); Red Cell Distribution Width 13.4 % (11.8-14.3); White Blood Cell 11.7 10^3/uL (4.4-10.8)
[2024-10-05 06:49] LABS: INR 1.12 (0.9-1.15); Prothrombin Time 11.7 sec (9.3-11.8)
[2024-10-05 07:04] LABS: Partial Thromboplastin Time 85.8 SEC (24.5-34.5)
[2024-10-05 07:15] LABS: Anion Gap 9 (5-15); Carbon Dioxide 27 mmol/L (20-31); Chloride 104 mmol/L (98-107); Sodium 140 mmol/L (136-145)
[2024-10-05 07:16] LABS: Calcium 9.8 mg/dL (8.7-10.4)
[2024-10-05 07:21] LABS: Glucose 103 mg/dL (74-106)
[2024-10-05 07:22] LABS: BUN/Creatinine Ratio 18.3 (10.0-20.0); Blood Urea Nitrogen 17 mg/dL (9-23); Magnesium 2.1 mg/dL (1.6-2.6)
[2024-10-05 07:27] LABS: Potassium 3.1 mmol/L (3.5-5.1)
[2024-10-05] MEDS: CLOPIDOGREL BISULFATE 75 MG TAB PO SCH (10:00)
[2024-10-05] MEDS: POTASSIUM CHLORIDE 8 MEQ TAB PO SCH (10:00)
--- NOTE | 2024-10-05 14:13 | DVHPN2 ---
Progress Note - Dictate Date Seen: Oct 05, 2024 Medical Necessity Reason Pt with a Central, PICC or Fol: No Subjective PT WITH CHEST PAIN PROGRESSIVE SX OF SOB I WAS CALLED TODAY BUT PT WAS IN THE ER YESTERDAY AT AROUND 1PM PMH: CAD HX OF [place] CHF S/P * Left main calcified, no flow restrictive lesion. * Left anterior descending artery had a calcified 90% narrowing, status post angioplasty with shockwave and stent placement with less than 10% residual stenosis. * Ostial circumflex had a 95% narrowing, status post angioplasty with shockwave followed by a stent placement with a 3.0 x 8 mm [place] stent with less than 10% residual stenosis. * Right coronary artery, previous site of angioplasty, stent placement, was patent with no residual stenosis noted. vital signs Vital Sign Date Time Temp Pulse Resp B/P (MAP) Pulse Ox O2 Delivery O2 Flow Rate FiO2 10/05/24 12:55 97.7 83 19 107/66 (80) 97 97.7 10/05/24 08:00 Nasal Cannula* 2 28 Total Intake and Output 10/04/24 10/04/24 10/05/24 15:00 23:00 07:00 Intake Total 24 ml 1400 ml 895 ml Output Total 2000 ml Balance 24 ml -600 ml 895 ml medications Current Medications Medications Dose Ordered Sig/Jackie Route Start Time Stop Time Status Last Admin Dose Admin Albuterol 2.5 mg Q4HPRN PRN NEB 10/03/24 19:30 Ipratropium [place] 0.5 mg Q4HPRN PRN NEB 10/03/24 19:30 Levothyroxine Sodium 25 mcg QAM@0600 PO 10/04/24 06:00 10/04/24 06:37 25 MCG Atorvastatin Calcium 20 mg HS PO 10/03/24 22:00 Sodium Chloride 10 ml Q8HR IV 10/03/24 22:00 10/05/24 05:10 10 ML Ondansetron HCl 4 mg Q4HP PRN IV 10/03/24 19:30 Docusate Sodium 100 mg BIDPRN PRN PO 10/03/24 19:30 Acetaminophen 650 mg Q6HP PRN PO 10/03/24 19:30 10/04/24 22:17 650 MG Nitroglycerin 0.4 mg Q5MINP PRN SL 10/03/24 20:15 Potassium Chloride 8 meq DAILY PO 10/05/24 10:00 Pregabalin 100 mg QID PO 10/04/24 18:00 10/04/24 18:08 100 MG Clopidogrel Bisulfate 75 mg DAILY PO 10/05/24 10:00 Furosemide 20 mg BIDD IV 10/04/24 18:00 10/04/24 18:08 20 MG Famotidine 20 mg Q12HR PO 10/04/24 22:00 Heparin Sodium/ Dextrose 250 ml @ 15 mls/hr [id number] IV 10/05/24 08:00 10/05/24 07:51 15 MLS/HR laboratory and microbiology Laboratory Tests 10/05/24 05:52 Test 10/05/24 05:52 Range/Units Serum Glucose 103 74-106 mg/dL Problem List CHEST PAIN PROGRESSIVE SX OF SOB I WAS CALLED TODAY BUT PT WAS IN THE ER YESTERDAY AT AROUND 1PM PMH: CAD HX OF [place] CHF S/P * Left main calcified, no flow restrictive lesion. * Left anterior descending artery had a calcified 90% narrowing, status post angioplasty with shockwave and stent placement with less than 10% residual stenosis. * Ostial circumflex had a 95% narrowing, status post angioplasty with shockwave followed by a stent placement with a 3.0 x 8 mm [place] stent with less than 10% residual stenosis. * Right coronary artery, previous site of angioplasty, stent placement, was patent with no residual stenosis noted. NOW WITH ELEVATED TROPONIN Assessment/Plan LHC IN AM Plan discussed with: Patient BUSHRA MARQUES MD Oct 05, 2024 14:12
[2024-10-05 15:47] LABS: INR 1.11 (0.9-1.15); Prothrombin Time 11.6 sec (9.3-11.8)
[2024-10-05 15:53] LABS: Partial Thromboplastin Time 83.3 SEC (24.5-34.5)
--- NOTE | 2024-10-05 16:20 | DVHPNRES ---
Progress Note Date Seen: Oct 05, 2024 Resident Creating Document: LEENA DOZIER RESIDENT Medical Necessity Reason Pt with a Central, PICC or Fol: No Subjective Review of Systems Patient is 54 years old male with past medical history of severe ischemic cardiomyopathy, LVEF< 10%, HFrEF, STATUS POST PTCA, Biotronik AICD, coronary artery disease, SD x4, peripheral artery disease, hypothyroidism came with a complaint of chest pain and shortness of breaths. Patient reported he started having chest pain on Thursday when he was coming from [place] to [place] which continued over the hours. Pain was central in nature, pressure-like, found out of 10, no radiation, no aggravating or relieving factor. Patient also endorsed shortness of breath with the chest pain which was getting worse of the time. Patient denied any fever, abdominal pain, dysuria, acute joint pain or swelling, dysarthria or change in vision. Initial lab workup revealed leukocytosis with WBC 12.9> 13.4, elevated total bilirubin 2.1> 3.8, elevated troponin 3900< 4402> 4299, BNP 825.98, TSH 0.51, magnesium 2.1. CXR-Pulmonary vascular congestion. CT angio-No pulmonary embolism is identified. Some of the distal pulmonary arteries cannot be evaluated due to suboptimal opacification. Small esophageal hiatal hernia. PMH- severe ischemic cardiomyopathy, LVEF< 10%, Biotronik AICD, coronary artery disease, SD x4, peripheral artery disease, hypothyroidism , Left main calcified, no flow restrictive lesion.* Left anterior descending artery had a calcified 90% narrowing, status post angioplasty with shockwave and stent placement with less than 10% residual stenosis. Ostial circumflex had a 95% narrowing, status post angioplasty with shockwave followed by a stent placement with a 3.0 x 8 mm [place] stent with less than 10% residual stenosis PSH-AKA (right ), PTCA, ICD Allergy-codeine, morphine Personal History/ Social History- alcoholic, use marijuana, ex alcoholic, lives at home Patient was seen today at the bedside. Cardiovascular- deny cough or palpitation Respiratory denies wheezing Gastrointestinal- denies any rectal bleeding, nausea or vomiting Musculoskeletal-denies acute joint swelling or tenderness or redness Neurological- denies acute dysarthria, dysphagia, change in vision Psychiatry- denies depression or SI or HI Skin- denies acute rash or purpura Patient was seen today for clinical evaluation. Less than chart reviewed. Patient reported feeling better today. Denied acute chest pain no shortness a breath. Patient on [place] O2 2 liter/minute. Patient was seen by Cardiology, recommendation reviewed and appreciated. geophysical laboratory director was postponed today. Scheduled for tomorrow. Potassium 3.1. Replenished. Objective vital signs Vital Sign Date Time Temp Pulse Resp B/P (MAP) Pulse Ox O2 Delivery O2 Flow Rate FiO2 10/05/24 12:55 97.7 83 19 107/66 (80) 97 97.7 10/05/24 08:00 Nasal Cannula* 2 28 Total Intake and Output 10/04/24 10/04/24 10/05/24 15:00 23:00 07:00 Intake Total 24 ml 1400 ml 895 ml Output Total 2000 ml Balance 24 ml -600 ml 895 ml medications Current Medications Medications Dose Ordered Sig/Jackie Route Start Time Stop Time Status Last Admin Dose Admin Albuterol 2.5 mg Q4HPRN PRN NEB 10/03/24 19:30 Ipratropium [place] 0.5 mg Q4HPRN PRN NEB 10/03/24 19:30 Levothyroxine Sodium 25 mcg QAM@0600 PO 10/04/24 06:00 10/04/24 06:37 25 MCG Atorvastatin Calcium 20 mg HS PO 10/03/24 22:00 Sodium Chloride 10 ml Q8HR IV 10/03/24 22:00 10/05/24 05:10 10 ML Ondansetron HCl 4 mg Q4HP PRN IV 10/03/24 19:30 Docusate Sodium 100 mg BIDPRN PRN PO 10/03/24 19:30 Acetaminophen 650 mg Q6HP PRN PO 10/03/24 19:30 10/04/24 22:17 650 MG Nitroglycerin 0.4 mg Q5MINP PRN SL 10/03/24 20:15 Potassium Chloride 8 meq DAILY PO 10/05/24 10:00 Pregabalin 100 mg QID PO 10/04/24 18:00 10/04/24 18:08 100 MG Clopidogrel Bisulfate 75 mg DAILY PO 10/05/24 10:00 Furosemide 20 mg BIDD IV 10/04/24 18:00 10/04/24 18:08 20 MG Famotidine 20 mg Q12HR PO 10/04/24 22:00 Heparin Sodium/ Dextrose 250 ml @ 13 mls/hr [id number] IV 10/05/24 16:15 Examination General examination- awake, alert, oriented HEENT- PEERLA, no acute nasal discharge Cardiovascular- S1-S2 audible, rate and rhythm regular, no murmur Respiratory-bilateral lung crackles+ Gastrointestinal-nontender, bowel sound+. Nondistended Musculoskeletal-no acute joint swelling or tenderness or redness# Lower extremity- no leg edema Neurological- cranial nerves intact, no acute dysarthria or dysphagia Psychiatry- denies depression or SI or HI Skin- no acute rash or purpura laboratory and microbiology Laboratory Tests 10/05/24 05:52 Test 10/05/24 05:52 Range/Units Serum Glucose 103 74-106 mg/dL Problem List/Assessment/Plan Problem List/Assessment/Plan Assessment #Acute coronary syndrome due to NSTEMI type 1 # acute hypoxic respiratory failure due to acute on chronicHFrEF #severe ischemic cardiomyopathy, LVEF< 10%, #HFrEF, #S/P PTCA, Biotronik AICD, #coronary artery disease, SD x4, #peripheral artery disease, # elevated bilirubin likely due to alcoholism #hypothyroidism #Small esophageal hiatal hernia. # hypokalemia replenished Plan of care Continue Plavix 10 mg p.o. daily -continue heparin as prescribed -continue atorvastatin 40 mg p.o. q.h.s. -continue Lasix 20 mg IV b.i.d. -continue levothyroxine 25 mg p.o. q.a.m. -pregabalin 100 mg p.o. q.i.d. -continue other medication as prescribed -patient is due for left heart catheterization tomorrow at a.m. by Dr. Arcos -IT WAS POSTPONED IT TODAY Goals of care/advance care planning; FULL CODE; discussed with the patient >15 minutes PUD prophylaxis: Famotidine DVT prophylaxis: Heparin Plan discussed with Dr. Orona , nursing staff, patient Total time spent on patient evaluation, chart review, assessment and plan, discussion discussion >41 minutes Plan discussed with: Patient Plan discussed with: Patient, Other (RN) My Orders My Orders Orders - LEENA DOZEIR Procedure Category Date Status Time Famotidine Tablet PHA 10/04/24 In Process (Pepcid Tablet) 22:00 Date of Service: Oct 05, 2024 Billing Provider: ROSY BEAN MD Common Visit Codes: [id number] INP/OBS CARE(HIGH) LEENA DOZIER RESIDENT Oct 05, 2024 16:20 ROSY BEAN MD Oct 10, 2024 00:03
[2024-10-05] MEDS: POTASSIUM CHL 20 Meq TABLET PO ONE (17:00)
[2024-10-05 22:50] LABS: INR 1.09 (0.9-1.15); Partial Thromboplastin Time 63.3 SEC (24.5-34.5); Prothrombin Time 11.5 sec (9.3-11.8)
[2024-10-06] VITALS (96 sets, daily range): BP systolic 89–119; BP diastolic 46–79; PULSE 62–109; RESP 9–22; TEMP 96.3–98.4; O2SAT 70–100
[2024-10-06 07:05] LABS: Basophils # (auto) 0 10 ^3/uL (0-0.2); Basophils % (auto) 0.3 % (0.0-2.0); Eosinophils # (auto) 0.1 10 ^3/uL (0-0.8); Eosinophils % (auto) 0.9 % (0.0-7.0); Hematocrit 37.5 % (41.0-53.0); Hemoglobin 12.6 g/dL (13.5-17.5); Lymphocytes # (auto) 2.7 10 ^3/uL (0.4-5.4); Lymphocytes % (auto) 25.3 % (10.0-50.0); Mean Corpuscular Hemoglobin 27.9 pg (28.0-32.0); Mean Corpuscular Hgb Conc. 33.6 g/dL (32.0-36.0); Mean Corpuscular Volume 83.1 fL (80.0-100.0); Monocytes # (auto) 0.7 10 ^3/uL (0-1.3); Monocytes % (auto) 6.2 % (0.0-12.0); Neutrophils # (auto) 7.1 10 ^3/uL (1.6-8.6); Neutrophils % (auto) 67.3 % (37.0-80.0); Platelet Count (auto) 206 10^3/uL (140-450); Red Blood Cells 4.51 10^6/uL (4.5-5.90); Red Cell Distribution Width 13.2 % (11.8-14.3); White Blood Cell 10.6 10^3/uL (4.4-10.8)
[2024-10-06 07:18] LABS: INR 1.08 (0.9-1.15); Partial Thromboplastin Time 57.8 SEC (24.5-34.5); Prothrombin Time 11.4 sec (9.3-11.8)
[2024-10-06 07:24] LABS: Alanine Aminotransferase 11 U/L (7-40); Albumin 4.5 g/dL (3.2-4.8); Alkaline Phosphatase 100 U/L (46-116); Anion Gap 8 (5-15); Aspartate Aminotransferase 18 U/L (13-40); BUN/Creatinine Ratio 16.5 (10.0-20.0); Blood Urea Nitrogen 13 mg/dL (9-23); Calcium 9.6 mg/dL (8.7-10.4); Carbon Dioxide 25 mmol/L (20-31); Glucose 99 mg/dL (74-106); Magnesium 2.2 mg/dL (1.6-2.6); Potassium 3.7 mmol/L (3.5-5.1); Sodium 140 mmol/L (136-145)
[2024-10-06 07:25] LABS: Total Protein 7.3 g/dL (5.7-8.2)
[2024-10-06 07:26] LABS: Bilirubin, Total 2.9 mg/dL (0.2-1.0); Chloride 107 mmol/L (98-107)
[2024-10-06] MEDS: IODIXANOL 320MG/ML 100ML BTL IV ONE (10:39)
[2024-10-06] MEDS: fentaNYL CITRATE 100 MCG/2 ML VL ONE (10:47)
[2024-10-06] MEDS: LIDOCAINE 2%HCL (LOCAL ANESTH.) INJ 20ML MDV ONE (10:47)
[2024-10-06] MEDS: SODIUM CHL 0.9% 50 ML ONE ×2 (10:47→12:08)
[2024-10-06] MEDS: MIDAZOLAM HCL 2MG/2ML 2ml VIAL (1mg/ml) ONE (10:47)
[2024-10-06] MEDS: ANGIOMAX 250 MG VIAL IV ONE ×2 (10:47→12:08)
--- NOTE | 2024-10-06 10:48 | DVHPN2 ---
Progress Note - Dictate Date Seen: Oct 06, 2024 Medical Necessity Reason Pt with a Central, PICC or Fol: No Subjective PT WITH CHEST PAIN PROGRESSIVE SX OF SOB I WAS CALLED TODAY BUT PT WAS IN THE ER YESTERDAY AT AROUND 1PM PMH: CAD HX OF MS CHF S/P * Left main calcified, no flow restrictive lesion. * Left anterior descending artery had a calcified 90% narrowing, status post angioplasty with shockwave and stent placement with less than 10% residual stenosis. * Ostial circumflex had a 95% narrowing, status post angioplasty with shockwave followed by a stent placement with a 3.0 x 8 mm [place] stent with less than 10% residual stenosis. * Right coronary artery, previous site of angioplasty, stent placement, was patent with no residual stenosis noted. vital signs Vital Sign Date Time Temp Pulse Resp B/P (MAP) Pulse Ox O2 Delivery O2 Flow Rate FiO2 10/06/24 08:30 97.9 76 16 89/58 (68) 97 97.9 10/06/24 08:15 Nasal Cannula* 2 28 Total Intake and Output 10/05/24 10/05/24 10/06/24 15:00 23:00 07:00 Intake Total 560 ml 500 ml Output Total 780 ml 1220 ml Balance -220 ml -720 ml medications Current Medications Medications Dose Ordered Sig/Jackie Route Start Time Stop Time Status Last Admin Dose Admin Albuterol 2.5 mg Q4HPRN PRN NEB 10/03/24 19:30 Ipratropium [place] 0.5 mg Q4HPRN PRN NEB 10/03/24 19:30 Levothyroxine Sodium 25 mcg QAM@0600 PO 10/04/24 06:00 10/06/24 05:39 25 MCG Atorvastatin Calcium 20 mg HS PO 10/03/24 22:00 Sodium Chloride 10 ml Q8HR IV 10/03/24 22:00 10/06/24 05:39 10 ML Ondansetron HCl 4 mg Q4HP PRN IV 10/03/24 19:30 Docusate Sodium 100 mg BIDPRN PRN PO 10/03/24 19:30 Acetaminophen 650 mg Q6HP PRN PO 10/03/24 19:30 10/04/24 22:17 650 MG Nitroglycerin 0.4 mg Q5MINP PRN SL 10/03/24 20:15 Potassium Chloride 8 meq DAILY PO 10/05/24 10:00 Pregabalin 100 mg QID PO 10/04/24 18:00 10/06/24 05:40 100 MG Clopidogrel Bisulfate 75 mg DAILY PO 10/05/24 10:00 Furosemide 20 mg BIDD IV 10/04/24 18:00 10/06/24 05:39 20 MG Famotidine 20 mg Q12HR PO 10/04/24 22:00 Heparin Sodium/ Dextrose 250 ml @ 13 mls/hr [id number] IV 10/05/24 16:15 10/05/24 20:59 13 MLS/HR laboratory and microbiology Laboratory Tests 10/06/24 05:50 Test 10/06/24 05:50 Range/Units Serum Glucose 99 74-106 mg/dL Problem List CHEST PAIN PROGRESSIVE SX OF SOB I WAS CALLED TODAY BUT PT WAS IN THE ER YESTERDAY AT AROUND 1PM PMH: CAD HX OF MS CHF S/P * Left main calcified, no flow restrictive lesion. * Left anterior descending artery had a calcified 90% narrowing, status post angioplasty with shockwave and stent placement with less than 10% residual stenosis. * Ostial circumflex had a 95% narrowing, status post angioplasty with shockwave followed by a stent placement with a 3.0 x 8 mm [place] stent with less than 10% residual stenosis. * Right coronary artery, previous site of angioplasty, stent placement, was patent with no residual stenosis noted. NOW WITH ELEVATED TROPONIN Assessment/Plan LHC IN AM Plan discussed with: Patient BUSHRA MARQUES MD Oct 06, 2024 10:48
[2024-10-06] MEDS: HYDROmorphone HCL 2 MG/ML VL/or syr ONE (11:52)
[2024-10-06] MEDS: IOHEXOL 350 MG/ML 100ML IJ ONE (11:56)
[2024-10-06] MEDS: CLOPIDOGREL BISULFATE 75 MG TAB ONE (12:36)
--- NOTE | 2024-10-06 14:15 | DVH ---
EXAM: XY CHEST PORTABLE Indication: S/P IABP Technique: Single frontal view of the chest was obtained Comparison: XY CHEST PORTABLE on DOS: 10/03/24, XY CHEST XRAY 1 VIEW on DOS: 02/05/24, XY CHEST PORTABL E on DOS: 02/04/24, XY CHEST XRAY 1 VIEW on DOS: 02/04/24 FINDINGS: Lines and Tubes: Cardiac pacemaker projects over left chest wall. Intra-aortic balloon pump projects 10 mm below the top of the aortic notch. Lungs: No focal consolidation. Pleura: No effusion. No pneumothorax. Cardiomediastinal contours: Cardiomegaly. Bones: No acute osseous abnormality. IMPRESSION: Cardiomegaly. Cardiac pacemaker projects over left chest wall. Intra-aortic balloon pump projects 10 mm below the top of the aortic notch.
--- NOTE | 2024-10-06 15:46 | DVHOP ---
DATE OF SURGERY: 10/06/2024 PROCEDURES PERFORMED: * Intra-aortic balloon pump insertion. * Left heart catheterization. * Angioplasty with stent placement of the left anterior descending artery with a 3.0 x 18 mm [place] stent. * Angioplasty with stent placement of the circumflex proximal with a 2.5 x 12 mm [place] stent. * Angioplasty with stent placement of the obtuse marginal 1 with a 2.5 x 18 mm [place] stent. * Angioplasty with stent placement of the left main with a kissing balloon technique of the left anterior descending artery and the circumflex. * Angioplasty of the distal circumflex with a 2.0 x 12 mm [place] balloon. * Furthermore, the patient had shockwave thrombectomy of the left anterior descending artery, shockwave thrombectomy of the obtuse marginal 1 and the circumflex artery with a 2.5 x 12 mm in the circumflex and a 3.0 x 12 mm in the left anterior descending artery. * Intra-aortic balloon pump was also inserted. DESCRIPTION OF PROCEDURE: The patient was prepped and draped in a sterile condition. 1% Xylocaine used to anesthetize the right groin. Using a Cook needle, the right femoral artery was engaged with Seldinger technique, a 6-[place]ov[place] sheath into the right femoral artery. The patient with an ejection fraction of less than 20%. He has a Bi-V AICD, and at this time, I felt that the patient would benefit from AICD following intervention because it is going to be a complex intervention. The patient presented with subendocardial FL. He recently angioplastied with stent placement of the left anterior descending artery and the circumflex. Using a 6-[place] JL4 catheter and 6-[place] JR4 catheter, selective left and right coronary angiographies were performed. The RCA was not imaged because previous angiogram done 2 months ago the patient had a patent RCA. Following the angiogram, the 6-Slovak diagnostic system was exchanged for a 6-Slov[place] interventional system. Using a 6-[place] XB 3.5 guide catheter, the left main was cannulated. Using a ChoICE PT extra support wire, the left anterior descending artery was then crossed. It is a previous stent in the proximal segment extending into the ostium 2. The circumflex artery had a 99% ostial narrowing extending into the obtuse marginal 1 and the circumflex in the AV groove. Both the circumflex and obtuse marginal 1 were then wired using two Runthrough wires. Following that, all 3 arteries; LAD, circumflex as well as obtuse marginal 1 were all balloon angioplastied with a 2.0 x 20 mm [place] balloon. Following the dilatation, shockwave treatment was given to all the 3 arteries, in the LAD is a 3.0 x 12 mm shockwave thrombectomy device, in the circumflex and the obtuse marginal 1 similarly it was a 2.5 x 12 mm shockwave devices were used. Following that, a 2.0 x 18 mm [place] stent deployed into the ostium of the obtuse marginal 1 and similarly a 2.5 x 12 mm [place] stent was deployed into the circumflex in the AV groove in the ostium just at the bifurcation of OM1. Following the deployment, a third stent was then deployed extending into the left main from the circumflex ostium into the left main and the LAD into the left main. A 2.5 x 15 mm [place] stent and a 3.0 x 18 mm stent into the left LAD extending into the left main was simultaneously balloon angioplastied. There were no complications. The patient tolerated the procedure well. Following the intervention, an intra-aortic balloon pump was inserted. RESULTS: * The distal left main had a 99% narrowing, distal LAD had a 99% narrowing distal to the ostial LAD. * Circumflex and the obtuse marginal 1 both had 99% narrowing extending into the ostium of the circumflex, extending into the left main. Therefore, left main, proximal circumflex, ostial obtuse marginal 1 were all balloon angioplastied, thrombectomized, shockwave treatment was given and stents were placed. There was still some residual stenosis in the proximal circumflex artery. However, because of the patient's severity of the lesion, it was felt that it is better not to put another stent in the segment because of the deployment of already 1, 2, 3, 4 stents into the system. A 34 mL intra-aortic balloon pump was placed and the patient received anticoagulation dual-antiplatelet therapy. CONCLUSION: * The patient had successful revascularization of the proximal left anterior descending artery with thrombectomy. * Angioplasty of the ostial obtuse marginal 1. * Angioplasty of the proximal circumflex extending into the left main. * At this time, the patient has very poor prognosis because EF is less than 20%. He has severe disease throughout, and at this point, high risk of sudden closure is high. We will continue to follow the patient. Isrrael Nazario MD SA/MONAE/PIO TID: [id number] RECEIPT: [id number]
--- NOTE | 2024-10-06 17:00 | DVHPNRES ---
Progress Note Date Seen: Oct 06, 2024 Resident Creating Document: LEENA DOZIER RESIDENT Medical Necessity Reason Pt with a Central, PICC or Fol: Yes The following are medically ne: PICC Line, [place] Catheter (RN) Subjective Review of Systems Patient is 54 years old male with past medical history of severe ischemic cardiomyopathy, LVEF< 10%, HFrEF, S/P PTCA, Stent to LAD, LCS, RCA, PAD,DM- type2, Biotronik AICD, coronary artery disease, SD x4, peripheral artery disease, hypothyroidism came with a complaint of chest pain and shortness of breaths. Patient reported he started having chest pain on Thursday when he was coming from [place] to [place] which continued over the hours. Pain was central in nature, pressure-like, found out of 10, no radiation, no aggravating or relieving factor. Patient also endorsed shortness of breath with the chest pain which was getting worse of the time. Patient denied any fever, abdominal pain, dysuria, acute joint pain or swelling, dysarthria or change in vision. Initial lab workup revealed leukocytosis with WBC 12.9> 13.4, elevated total bilirubin 2.1> 3.8, elevated troponin 3900< 4402> 4299, BNP 825.98, TSH 0.51, magnesium 2.1. CXR-Pulmonary vascular congestion. CT angio-No pulmonary embolism is identified. Some of the distal pulmonary arteries cannot be evaluated due to suboptimal opacification. Small esophageal hiatal hernia. PMH- severe ischemic cardiomyopathy, LVEF< 10%, Biotronik AICD, coronary artery disease, SD x4, peripheral artery disease, hypothyroidism , Left main calcified, no flow restrictive lesion.* Left anterior descending artery had a calcified 90% narrowing, status post angioplasty with shockwave and stent placement with less than 10% residual stenosis. Ostial circumflex had a 95% narrowing, status post angioplasty with shockwave followed by a stent placement with a 3.0 x 8 mm [place] stent with less than 10% residual stenosis PSH-AKA (right ), PTCA, ICD Allergy-codeine, morphine Personal History/ Social History- alcoholic, use marijuana, ex alcoholic, lives at home Patient was seen today at the bedside. Cardiovascular- deny cough or palpitation Respiratory denies wheezing Gastrointestinal- denies any rectal bleeding, nausea or vomiting Musculoskeletal-denies acute joint swelling or tenderness or redness Neurological- denies acute dysarthria, dysphagia, change in vision Psychiatry- denies depression or SI or HI Skin- denies acute rash or purpura Patient was seen today for clinical evaluation. Less than chart reviewed. Patient reported feeling better today. Patient had left heart catheterization today. Status post successful revascularization of the proximal left anterior descending artery with thrombectomy. Angioplasty of the ostial obtuse marginal 1. Angioplasty of the proximal circumflex extending into the left main. Patient's prognosis due to multiple comorbidity with with LVEF less than 20%.Patient was transfetrred to ICU due to post cath IABP Objective vital signs Vital Sign Date Time Temp Pulse Resp B/P (MAP) Pulse Ox O2 Delivery O2 Flow Rate FiO2 10/06/24 16:30 67 16 104/65 (78) 100 10/06/24 16:00 Nasal Cannula* 2 28 10/06/24 14:00 96.3 96.3 Total Intake and Output 10/05/24 10/05/24 10/06/24 15:00 23:00 07:00 Intake Total 560 ml 500 ml Output Total 780 ml 1220 ml Balance -220 ml -720 ml medications Current Medications Medications Dose Ordered Sig/Jackie Route Start Time Stop Time Status Last Admin Dose Admin Albuterol 2.5 mg Q4HPRN PRN NEB 10/03/24 19:30 Ipratropium [place] 0.5 mg Q4HPRN PRN NEB 10/03/24 19:30 Levothyroxine Sodium 25 mcg QAM@0600 PO 10/04/24 06:00 10/06/24 05:39 25 MCG Atorvastatin Calcium 20 mg HS PO 10/03/24 22:00 Sodium Chloride 10 ml Q8HR IV 10/03/24 22:00 10/06/24 14:00 10 ML Ondansetron HCl 4 mg Q4HP PRN IV 10/03/24 19:30 Docusate Sodium 100 mg BIDPRN PRN PO 10/03/24 19:30 Acetaminophen 650 mg Q6HP PRN PO 10/03/24 19:30 10/04/24 22:17 650 MG Nitroglycerin 0.4 mg Q5MINP PRN SL 10/03/24 20:15 Potassium Chloride 8 meq DAILY PO 10/05/24 10:00 Pregabalin 100 mg QID PO 10/04/24 18:00 10/06/24 05:40 100 MG Clopidogrel Bisulfate 75 mg DAILY PO 10/05/24 10:00 Furosemide 20 mg BIDD IV 10/04/24 18:00 10/06/24 05:39 20 MG Famotidine 20 mg Q12HR PO 10/04/24 22:00 Hydromorphone HCl 1 mg Q4HPRN PRN IV 10/06/24 13:15 Examination General examination- awake, alert, oriented HEENT- PEERLA, no acute nasal discharge Cardiovascular- S1-S2 audible, rate and rhythm regular, no murmur Respiratory-bilateral lung crackles+ Gastrointestinal-nontender, bowel sound+. Nondistended Musculoskeletal-right above-knee amputation Lower extremity- no leg edema Neurological- cranial nerves intact, no acute dysarthria or dysphagia Psychiatry- denies depression or SI or HI Skin- no acute rash or purpura laboratory and microbiology Laboratory Tests 10/06/24 05:50 Test 10/06/24 05:50 Range/Units Serum Glucose 99 74-106 mg/dL Problem List/Assessment/Plan Problem List/Assessment/Plan Assessment #Acute coronary syndrome due to NSTEMI type 1 # acute hypoxic respiratory failure due to acute on chronicHFrEF # S/P successful revascularization of the proximal left anterior descending artery with thrombectomy. Angioplasty of the ostial obtuse marginal 1. Angioplasty of the proximal circumflex extending into the left main. Patient's prognosis due to multiple comorbidity with with LVEF less than 20%. #severe ischemic cardiomyopathy, LVEF< 20%, Patient was transfetrred to ICU due to post cath IABP. #HFrEF, #DM type2 #PAD #S/P PTCA, Biotronik AICD, #coronary artery disease, SD x4, #peripheral artery disease, # elevated bilirubin likely due to alcoholism #hypothyroidism #Small esophageal hiatal hernia. # hypokalemia replenished Plan of care ASPIRIN 81 MG P.O. DAILY Continue Plavix 10 mg p.o. daily -continue atorvastatin 40 mg p.o. q.h.s. -continue Lasix 20 mg IV b.i.d. -continue levothyroxine 25 mg p.o. q.a.m. -pregabalin 100 mg p.o. q.i.d. -continue other medication as prescribed Goals of care/advance care planning; FULL CODE; discussed with the patient >15 minutes PUD prophylaxis: Famotidine DVT prophylaxis: Lovenox Plan discussed with Dr. Orona , nursing staff, patient Total time spent on patient evaluation, chart review, assessment and plan, discussion discussion >41 minutes Plan discussed with: Patient Plan discussed with: Patient (RN), Other Date of Service: Oct 06, 2024 Billing Provider: ROSY BEAN MD Common Visit Codes: [id number] INP/OBS CARE(HIGH) LEENA DOZIER RESIDENT Oct 06, 2024 17:00 ROSY BEAN MD Oct 10, 2024 00:09
[2024-10-06] MEDS: ASPirin 81 mg TAB PO ONE (17:35)
[2024-10-06] MEDS: ENOXAPARIN SOD 40 MG/0.4 ML SYRINGE SC ONE (17:36)
[2024-10-06] MEDS: HYDROmorphone HCL 2 MG/ML VL/or syr IV PRN (19:42)
[2024-10-06] MEDS: ONDANSETRON HCL 4 MG/2 ML VIAL IV PRN (20:31)
[2024-10-07] VITALS (121 sets, daily range): BP systolic 88–184; BP diastolic 53–179; PULSE 60–98; RESP 7–23; TEMP 98.2–98.9; O2SAT 85–100
[2024-10-07 04:14] LABS: Basophils # (auto) 0 10 ^3/uL (0-0.2); Basophils % (auto) 0.3 % (0.0-2.0); Eosinophils # (auto) 0 10 ^3/uL (0-0.8); Eosinophils % (auto) 0.4 % (0.0-7.0); Hematocrit 37.7 % (41.0-53.0); Hemoglobin 12.6 g/dL (13.5-17.5); Lymphocytes # (auto) 1.4 10 ^3/uL (0.4-5.4); Mean Corpuscular Hemoglobin 27.7 pg (28.0-32.0); Mean Corpuscular Hgb Conc. 33.3 g/dL (32.0-36.0); Mean Corpuscular Volume 83.3 fL (80.0-100.0); Monocytes % (auto) 7.9 % (0.0-12.0); Neutrophils # (auto) 10.4 10 ^3/uL (1.6-8.6); Neutrophils % (auto) 80.4 % (37.0-80.0); Platelet Count (auto) 203 10^3/uL (140-450); Red Blood Cells 4.53 10^6/uL (4.5-5.90); Red Cell Distribution Width 13.4 % (11.8-14.3)
[2024-10-07 04:27] LABS: Chloride 104 mmol/L (98-107); Potassium 3.5 mmol/L (3.5-5.1); Sodium 138 mmol/L (136-145)
[2024-10-07 04:28] LABS: Anion Gap 9 (5-15); Calcium 9.9 mg/dL (8.7-10.4); Carbon Dioxide 25 mmol/L (20-31)
[2024-10-07 04:33] LABS: Glucose 88 mg/dL (74-106)
[2024-10-07 04:34] LABS: BUN/Creatinine Ratio 16.3 (10.0-20.0); Blood Urea Nitrogen 13 mg/dL (9-23); Magnesium 2.2 mg/dL (1.6-2.6)
--- NOTE | 2024-10-07 06:08 | DVH ---
EXAM: XR Chest, 1 View CLINICAL INDICATION: IABP PLACEMENT TECHNIQUE: Frontal view of the chest. COMPARISON: XY CHEST PORTABLE on DOS: 10/06/24, XY CHEST PORTABLE on DOS: 10/03/24, XY CHEST XRAY 1 V IEW on DOS: 02/05/24, XY CHEST PORTABLE on DOS: 02/04/24, XY CHEST XRAY 1 VIEW on DOS: 02/04/24 FINDINGS: LUNGS AND PLEURAL SPACES: Unremarkable. No consolidation. No pneumothorax. HEART: Cardiomegaly without overt failure. MEDIASTINUM: Unremarkable. Normal mediastinal contour. BONES/JOINTS: Unremarkable. No acute fracture. TUBES, LINES AND DEVICES: Left-sided cardiac pacemaker. OTHER FINDINGS: . None. . .. IMPRESSION: Cardiomegaly without overt failure.
[2024-10-07] MEDS: POTASSIUM CHL 20 Meq TABLET PO ONE ×2 (06:37)
[2024-10-07] MEDS: IPRATROPIUM BROM 0.5 MG/2.5ML INH SOL NEB PRN (08:50)
[2024-10-07] MEDS: ALBUTEROL SULF 2.5 MG/0.5ML(0.5%) NEB SOLN NEB PRN (08:50)
[2024-10-07] MEDS: ENOXAPARIN SOD 40 MG/0.4 ML SYRINGE SC SCH (09:44)
[2024-10-07] MEDS: ASPirin 81 mg TAB PO SCH (09:46)
[2024-10-07 10:13] LABS: Cannabinoid Screen, Urine Pos (NEGATIVE)
[2024-10-07 10:30] LABS: Barbiturate Scree,Urine Neg (NEGATIVE); Opiate Scree,Urine Pos (NEGATIVE)
[2024-10-07 10:31] LABS: Amphetamine Screen, Urine Neg (NEGATIVE); Benzodiazephine Screen, Urine Pos (NEGATIVE); Cocaine Screen, Urine Neg (NEGATIVE); Phencyclidine Screen, Urine Neg (NEGATIVE)
[2024-10-07 10:41] LABS: Free T3 3.29 pg/mL (2.3-4.2)
[2024-10-07 10:52] LABS: Free T4 (Free Thyroxine) 1.17 ng/dL (0.89-1.76)
--- NOTE | 2024-10-07 14:12 | DVHPN2 ---
Progress Note - Dictate Date Seen: Oct 07, 2024 Medical Necessity Reason Pt with a Central, PICC or Fol: Yes The following are medically ne: PICC Line, Mujica Catheter (RN) Subjective PT WITH CHEST PAIN PROGRESSIVE SX OF SOB I WAS CALLED TODAY BUT PT WAS IN THE ER YESTERDAY AT AROUND 1PM PMH: CAD HX OF [place] CHF S/P * Left main calcified, no flow restrictive lesion. * Left anterior descending artery had a calcified 90% narrowing, status post angioplasty with shockwave and stent placement with less than 10% residual stenosis. * Ostial circumflex had a 95% narrowing, status post angioplasty with shockwave followed by a stent placement with a 3.0 x 8 mm [place] stent with less than 10% residual stenosis. * Right coronary artery, previous site of angioplasty, stent placement, was patent with no residual stenosis noted. vital signs Vital Sign Date Time Temp Pulse Resp B/P (MAP) Pulse Ox O2 Delivery O2 Flow Rate FiO2 10/07/24 13:00 87 10/07/24 12:45 13 94/73 (80) 100 10/07/24 12:00 Room Air* 0 21 10/07/24 12:00 98.5 98.5 Total Intake and Output 10/06/24 10/06/24 10/07/24 15:00 23:00 07:00 Intake Total 120 ml 195 ml 240 ml Output Total 43 ml 589 ml 253 ml Balance 77 ml -394 ml -13 ml medications Current Medications Medications Dose Ordered Sig/Jackie Route Start Time Stop Time Status Last Admin Dose Admin Albuterol 2.5 mg Q4HPRN PRN NEB 10/03/24 19:30 10/07/24 08:50 2.5 MG Ipratropium [place] 0.5 mg Q4HPRN PRN NEB 10/03/24 19:30 10/07/24 08:50 0.5 MG Levothyroxine Sodium 25 mcg QAM@0600 PO 10/04/24 06:00 10/07/24 06:36 25 MCG Sodium Chloride 10 ml Q8HR IV 10/03/24 22:00 10/07/24 06:36 10 ML Ondansetron HCl 4 mg Q4HP PRN IV 10/03/24 19:30 10/06/24 20:31 4 MG Docusate Sodium 100 mg BIDPRN PRN PO 10/03/24 19:30 Acetaminophen 650 mg Q6HP PRN PO 10/03/24 19:30 10/07/24 00:08 650 MG Nitroglycerin 0.4 mg Q5MINP PRN SL 10/03/24 20:15 Potassium Chloride 8 meq DAILY PO 10/05/24 10:00 10/07/24 09:47 8 MEQ Pregabalin 100 mg QID PO 10/04/24 18:00 10/07/24 12:51 100 MG Clopidogrel Bisulfate 75 mg DAILY PO 10/05/24 10:00 10/07/24 09:48 75 MG Furosemide 20 mg BIDD IV 10/04/24 18:00 10/07/24 06:37 20 MG Famotidine 20 mg Q12HR PO 10/04/24 22:00 10/07/24 09:45 20 MG Hydromorphone HCl 1 mg Q4HPRN PRN IV 10/06/24 13:15 10/07/24 10:24 1 MG Aspirin 81 mg DAILY PO 10/07/24 10:00 10/07/24 09:46 81 MG Enoxaparin Sodium 40 mg DAILY SC 10/07/24 10:00 10/07/24 09:44 40 MG Atorvastatin Calcium 40 mg HS PO 10/07/24 22:00 laboratory and microbiology Laboratory Tests 10/07/24 03:00 Test 10/07/24 03:00 Range/Units Serum Glucose 88 74-106 mg/dL Problem List CHEST PAIN PROGRESSIVE SX OF SOB I WAS CALLED TODAY BUT PT WAS IN THE ER YESTERDAY AT AROUND 1PM PMH: CAD HX OF [place] CHF S/P * Left main calcified, no flow restrictive lesion. * Left anterior descending artery had a calcified 90% narrowing, status post angioplasty with shockwave and stent placement with less than 10% residual stenosis. * Ostial circumflex had a 95% narrowing, status post angioplasty with shockwave followed by a stent placement with a 3.0 x 8 mm [place] stent with less than 10% residual stenosis. * Right coronary artery, previous site of angioplasty, stent placement, was patent with no residual stenosis noted. NOW WITH ELEVATED TROPONIN Assessment/Plan LHC IN AM S/P PTCA STENTS PTCA STENT LEFT MAIN PTCA STENT LAD PTCA STENT CX PTCA STENT [place] WITH THROMBECTOMY DC IABP TODAY Dietary Evaluation Review Comments: 2G Na Low Fat Low Cholesterol crdiac Diet Expected Outcomes/Goals: gradual wt loss. Plan discussed with: Patient Critical Care Time(min): 60 BUSHRA MARQUES MD Oct 07, 2024 14:12
[2024-10-07] MEDS: LIDOCAINE 1% HCL (LOCAL ANESTH.) INJ 20ML MDV IJ ONE (16:00)
[2024-10-07] MEDS: APIXABAN 2.5 MG TAB PO SCH (17:57)
[2024-10-07 19:01] LABS: Phosphorus 3.8 mg/dL (2.4-5.1)
[2024-10-07] MEDS: HYDROcodone-ACET 10/325MG TAB PO PRN (20:10)
[2024-10-07] MEDS: ATORVASTATIN 20 MG TAB PO SCH (21:27)
--- NOTE | 2024-10-07 22:48 | DVHPNRES ---
Progress Note Date Seen: Oct 07, 2024 Resident Creating Document: MORGAN AREVALO RESIDENT Medical Necessity Reason Pt with a Central, PICC or Fol: Yes The following are medically ne: PICC Line, Mujica Catheter (RN) Objective vital signs Vital Sign Date Time Temp Pulse Resp B/P (MAP) Pulse Ox O2 Delivery O2 Flow Rate FiO2 10/07/24 20:30 88 16 113/69 (84) 100 10/07/24 20:22 Nasal Cannula* 2 28 10/07/24 20:00 98.5 98.5 Total Intake and Output 10/06/24 10/06/24 10/07/24 15:00 23:00 07:00 Intake Total 120 ml 195 ml 240 ml Output Total 43 ml 589 ml 253 ml Balance 77 ml -394 ml -13 ml medications Current Medications Medications Dose Ordered Sig/Jackie Route Start Time Stop Time Status Last Admin Dose Admin Albuterol 2.5 mg Q4HPRN PRN NEB 10/03/24 19:30 10/07/24 08:50 2.5 MG Ipratropium [place] 0.5 mg Q4HPRN PRN NEB 10/03/24 19:30 10/07/24 08:50 0.5 MG Levothyroxine Sodium 25 mcg QAM@0600 PO 10/04/24 06:00 10/07/24 06:36 25 MCG Sodium Chloride 10 ml Q8HR IV 10/03/24 22:00 10/07/24 21:27 10 ML Ondansetron HCl 4 mg Q4HP PRN IV 10/03/24 19:30 10/06/24 20:31 4 MG Docusate Sodium 100 mg BIDPRN PRN PO 10/03/24 19:30 Acetaminophen 650 mg Q6HP PRN PO 10/03/24 19:30 10/07/24 00:08 650 MG Nitroglycerin 0.4 mg Q5MINP PRN SL 10/03/24 20:15 Potassium Chloride 8 meq DAILY PO 10/05/24 10:00 10/07/24 09:47 8 MEQ Pregabalin 100 mg QID PO 10/04/24 18:00 10/07/24 21:28 100 MG Clopidogrel Bisulfate 75 mg DAILY PO 10/05/24 10:00 10/07/24 09:48 75 MG Furosemide 20 mg BIDD IV 10/04/24 18:00 10/07/24 17:57 20 MG Famotidine 20 mg Q12HR PO 10/04/24 22:00 10/07/24 21:27 20 MG Hydromorphone HCl 1 mg Q4HPRN PRN IV 10/06/24 13:15 Hold 10/07/24 10:24 1 MG Aspirin 81 mg DAILY PO 10/07/24 10:00 10/07/24 09:46 81 MG Enoxaparin Sodium 40 mg DAILY SC 10/07/24 10:00 10/07/24 09:44 40 MG Atorvastatin Calcium 40 mg HS PO 10/07/24 22:00 10/07/24 21:27 40 MG Apixaban 2.5 mg BID PO 10/07/24 18:00 10/07/24 21:27 2.5 MG Acetaminophen/ Hydrocodone Bitart 1 tab Q8HP PRN PO 10/07/24 16:30 10/07/24 20:10 1 TAB Examination General examination- awake, alert, oriented conversant, comfortable, HEENT- PEERLA, no acute nasal discharge Cardiovascular- S1-S2 audible, rate and rhythm regular, no murmur: Right groin access for sheath of IABP. Attached to the console. Respiratory-bilateral lung crackles improved, SpO2> 95 on room air. Gastrointestinal-nontender, bowel sound+. Nondistended Musculoskeletal-right above-knee amputation, otherwise peripheral pulses intact. Lower extremity- no leg edema Neurological- cranial nerves intact, no acute dysarthria or dysphagia, no focal neurological deficits noted. Psychiatry- upbeat, positive affect Skin- no acute rash or purpura laboratory and microbiology Laboratory Tests 10/07/24 18:16 10/07/24 03:00 Test 10/07/24 03:00 Range/Units Serum Glucose 88 74-106 mg/dL Labs and/or images reviewed: Labs reviewed by me, Image(s) reviewed by me Problem List/Assessment/Plan Problem List/Assessment/Plan ICU course: A 54-year-old male with a history of severe ischemic cardiomyopathy (LVEF < 10%), multiple myocardial infarctions, coronary artery disease, and other comorbidities presented with chest pain and shortness of breath. The pain, which began during travel, was central and pressure-like, without radiation or specific triggers. Initial lab results showed elevated WBC, bilirubin, and troponin levels, with imaging revealing pulmonary vascular congestion but no pulmonary embolism. The patient underwent successful revascularization of the left anterior descending artery and other angioplasties. Despite feeling better post-procedure, he was transferred to the ICU due to his complex medical history and low LVEF needing support with IABP augmentation to one: one. Patient had left heart catheterization 10/07/2024 Status post successful revascularization of the proximal left anterior descending artery with thrombectomy. Angioplasty of the ostial obtuse marginal 1. Angioplasty of the proximal circumflex extending into the left main. Patient's prognosis is overall poor due to multiple comorbidity with with LVEF less than 20%. Patient was transferred to ICU due to post cath IABP. Hospitalization day: 3 A. Neurology: AAO x4 denies any signs of stroke or acute change of neurological functions on balloon pump. Peripheral neuro vascular functions intact in all limb end # Marijuana use disorder: Counseled at bedside B. Cardiology: #severe ischemic cardiomyopathy, cardiology on board, appreciate recommendation # heart failure with reduced ejection fraction/LVEF< 10% on Biotronik AICD, continue IV b.i.d. 20 mg Lasix. # extensive coronary artery disease, [place] x4, peripheral artery disease, hypothyroidism , Left main calcified, no flow restrictive lesion. Left anterior descending artery had a calcified 90% narrowing, status post angioplasty with shockwave and stent placement with less than 10% residual stenosis. Ostial circumflex had a 95% narrowing, status post angioplasty with shockwave followed by a stent placement with a 3.0 x 8 mm [place] stent with less than 10% residual stenosis # type 1 NSTEMI: 12 antiplatelet therapy with aspirin, atorvastatin, Eliquis 2.5 p.o. b.i.d. started # high-risk PCI with low EF might be augmented with high counter pulsation with IABP. C. Respiratory: # Ruled out pulmonary embolism , elevated D-dimer # acute hypoxic respiratory failure on 2 L nasal cannula oxygen: Wean to room air. D. Gastrointestinal: #Small esophageal hiatal hernia. # Hyperbilirubinemia, unremarkable abdominal exam: Repeat CMP tomorrow. E. Genitourinary: Unremarkable, on Mujica's catheter, can discontinue. F. Infectious Disease: no need of antibiotics, afebrile mild leukocytosis likely stress related, repeat CBC tomorrow in the morning. # likely UTI, continue IV ceftriaxone G. Hematology & Oncology: # Normocytic anemia: Close follow up with CBC H. Nephrology: # hypokalemia replenished I. Endocrine: #DM type2, target blood glucose [id number] as per NICE sugar trial. #hypothyroidism Supplement 25 mcg p.o. daily. J. MSK: # Phantom limb pain: Continue pregabalin, at home [place] 10 t.i.d. p.r.n. continue. # PAD # History of right above-knee amputation. K. Prophylaxis: PPI: continue PPI DVT: Continue Lovenox subcutaneous daily >> anticoagulation L. Lines & Drains (with insertion date): Arterial line / IABP 10/06/2024: please continue at 1: 1 with the appropriate augmentation, MAP>65, well synchronized, patient is free of any complication. Appreciate Cardiology input, IABP is taken out with sheath on the right femoral, the local compression is added with subsequent slow decrease of the pressure, no immediate complication or hemodynamic changes noted. Keep the patient in the ICU for close monitoring for next 6 hours / or appropriate decrease of the right groin sheath access for IABP. Mujica's catheter: On Mujica's catheter for close input output check since 10/06/2024. To be notified if the urine output is less than 0.5 mL per kg per hour while IABP in. M. Drips: off of all drips N. Disposition: Remains in ICU>>Downgrade to Telemetry Floor >> patient will come back to the primary team with resident team of Dr. Marin. The plan was discussed with the ICU attending Dr. Meyer The patient care consists of total 83 minutes of critical care time excluding the procedures. Dictated by Morgan Arevalo MD with 3M MModal Fluency. Plan discussed with: Patient, Other My Orders My Orders Orders - MORGAN AREVALO RESIDENT Procedure Category Date Status Time Atorvastatin (Lipitor) PHA 10/07/24 In Process 22:00 Hydrocodone-Acet PHA 10/07/24 In Process 10/325mg Tab ([place] 16:30 Transfer Orders XFER 10/07/24 Transmitted 17:28 Transfer Orders XFER 10/07/24 Transmitted 20:39 Complete Blood Count LAB 10/08/24 Verified 04:00 Comprehensive LAB 10/08/24 Verified Metabolic Panel 04:00 Dietary Evaluation Review Comments: 2G Na Low Fat Low Cholesterol crdiac Diet Expected Outcomes/Goals: gradual wt loss. MORGAN AREVALO RESIDENT Oct 07, 2024 22:48
[2024-10-07] MEDS: cefTRIAXone 1GM/50ML D5W 50 ML IV SCH (23:28)
[2024-10-08] VITALS (10 sets, daily range): BP systolic 93–111; BP diastolic 58–69; PULSE 70–89; RESP 17–22; TEMP 98.3–98.6; O2SAT 95–100
[2024-10-08 07:37] LABS: Basophils # (auto) 0 10 ^3/uL (0-0.2); Basophils % (auto) 0.2 % (0.0-2.0); Eosinophils # (auto) 0.1 10 ^3/uL (0-0.8); Eosinophils % (auto) 0.5 % (0.0-7.0); Hematocrit 38.5 % (41.0-53.0); Hemoglobin 12.9 g/dL (13.5-17.5); Lymphocytes # (auto) 1.7 10 ^3/uL (0.4-5.4); Lymphocytes % (auto) 13.9 % (10.0-50.0); Mean Corpuscular Hemoglobin 27.6 pg (28.0-32.0); Mean Corpuscular Hgb Conc. 33.7 g/dL (32.0-36.0); Mean Corpuscular Volume 81.9 fL (80.0-100.0); Monocytes # (auto) 0.9 10 ^3/uL (0-1.3); Monocytes % (auto) 7.5 % (0.0-12.0); Neutrophils # (auto) 9.6 10 ^3/uL (1.6-8.6); Neutrophils % (auto) 77.9 % (37.0-80.0); Nucleated Red Blood Cells % 0.1 %; Platelet Count (auto) 204 10^3/uL (140-450); Red Cell Distribution Width 13.1 % (11.8-14.3); White Blood Cell 12.4 10^3/uL (4.4-10.8)
[2024-10-08 07:47] LABS: Albumin 4.7 g/dL (3.2-4.8); Aspartate Aminotransferase 16 U/L (13-40)
[2024-10-08 07:49] LABS: Alanine Aminotransferase < 9 U/L (7-40); Chloride 102 mmol/L (98-107); Potassium 3.4 mmol/L (3.5-5.1); Sodium 136 mmol/L (136-145)
[2024-10-08 07:50] LABS: Total Protein 7.7 g/dL (5.7-8.2)
[2024-10-08 07:53] LABS: Anion Gap 11 (5-15)
[2024-10-08 08:01] LABS: BUN/Creatinine Ratio 15.9 (10.0-20.0)
[2024-10-08 08:02] LABS: Alkaline Phosphatase 108 U/L (46-116); Blood Urea Nitrogen 14 mg/dL (9-23); Carbon Dioxide 23 mmol/L (20-31); Glucose 153 mg/dL (74-106)
[2024-10-08 08:07] LABS: Bilirubin, Total 2.2 mg/dL (0.2-1.0)
--- NOTE | 2024-10-08 12:00 | DVHDSRES ---
Discharge Summary Date of Admission Resident Creating Document: LEENA DOZIER RESIDENT Oct 03, 2024 at 20:12 Date of Discharge: Oct 08, 2024 Admitting Diagnosis Acute chest pain likely due to acute ACS Labs/Diagnostic Data: Laboratory Results Test 10/08/24 06:14 10/07/24 18:16 10/07/24 09:34 10/06/24 22:00 White Blood Count 12.4 10^3/uL (4.4-10.8) Red Blood Count 4.70 10^6/uL (4.5-5.90) Hemoglobin 12.9 g/dL (13.5-17.5) Hematocrit 38.5 % (41.0-53.0) Mean Corpuscular Volume 81.9 fL (80.0-100.0) Mean Corpuscular Hemoglobin 27.6 pg (28.0-32.0) Mean Corpuscular Hemoglobin Concent 33.7 g/dL (32.0-36.0) Red Cell Distribution Width 13.1 % (11.8-14.3) Platelet Count 204 10^3/uL (140-450) Mean Platelet Volume 10.2 fL (6.9-10.8) Neutrophils (%) (Auto) 77.9 % (37.0-80.0) Lymphocytes (%) (Auto) 13.9 % (10.0-50.0) Monocytes (%) (Auto) 7.5 % (0.0-12.0) Eosinophils (%) (Auto) 0.5 % (0.0-7.0) Basophils (%) (Auto) 0.2 % (0.0-2.0) Neutrophils # (Auto) 9.6 10 ^3/uL (1.6-8.6) Lymphocytes # (Auto) 1.7 10 ^3/uL (0.4-5.4) Monocytes # (Auto) 0.9 10 ^3/uL (0-1.3) Eosinophils # (Auto) 0.1 10 ^3/uL (0-0.8) Basophils # (Auto) 0 10 ^3/uL (0-0.2) Nucleated Red Blood Cells 0.1 % Sodium Level 136 mmol/L (136-145) Potassium Level 3.4 mmol/L (3.5-5.1) Chloride Level 102 mmol/L (98-107) Carbon Dioxide Level 23 mmol/L (20-31) Anion Gap 11 (5-15) Blood Urea Nitrogen 14 mg/dL (9-23) Creatinine 0.88 mg/dL (0.700-1.30) Glomerular Filtration Rate Calc 101 mL/min (>90) BUN/Creatinine Ratio 15.9 (10.0-20.0) Serum Glucose 153 mg/dL (74-106) Calcium Level 10.0 mg/dL (8.7-10.4) Total Bilirubin 2.2 mg/dL (0.2-1.0) Aspartate Amino Transferase (AST) 16 U/L (13-40) Alanine Aminotransferase (ALT) < 9 U/L (7-40) Alkaline Phosphatase 108 U/L (46-116) Total Protein 7.7 g/dL (5.7-8.2) Albumin 4.7 g/dL (3.2-4.8) Phosphorus Level 3.8 mg/dL (2.4-5.1) Magnesium Level 2.0 mg/dL (1.6-2.6) Free Thyroxine (T4) Calculated 1.17 ng/dL (0.89-1.76) Free Triiodothyronine (T3) pg/mL 3.29 pg/mL (2.3-4.2) Plasma/Serum Blood Alcohol < 3.0 mg/dL (<10) Urine Opiates Screen Pos (NEGATIVE) Urine Fentanyl Screen Pos (NEGATIVE) Urine Barbiturates Screen Neg (NEGATIVE) Urine Phencyclidine Screen Neg (NEGATIVE) Urine Amphetamines Screen Neg (NEGATIVE) Urine Benzodiazepines Screen Pos (NEGATIVE) Urine Cocaine Screen Neg (NEGATIVE) Urine Cannabinoids Screen Pos (NEGATIVE) Test 10/06/24 05:50 10/05/24 02:40 10/03/24 15:29 10/03/24 12:36 Prothrombin Time 11.4 sec (9.3-11.8) Prothrombin Time INR 1.08 (0.9-1.15) Activated Partial Thromboplast Time 57.8 SEC (24.5-34.5) Urine Color Yellow (Yellow) Urine Clarity Clear (Clear) Urine pH 5.5 (5.0-9.0) Urine Specific Daisy 1.019 (1.001-1.035) Urine Protein Negative (Negative) Urine Ketones Negative (Negative) Urine Blood Negative /uL (Negative) Urine Nitrite Negative (Negative) Urine Bilirubin Negative (Negative) Urine Urobilinogen Normal mg/dL (Negative) Urine Leukocyte Esterase 1+ /uL (Negative) Urine RBC 1 /hpf (0 - 3) Urine Microscopic WBC < 1 /HPF (0-3) Urine Squamous Epithelial Cells None seen /hpf (<5) Urine Bacteria None seen /hpf (None Seen) Urine Hyaline Casts Few /lpf (0 - 2) Urine Mucus Few (None Seen) Urine Glucose Normal mg/dL (Normal) Troponin I High Sensitivity 4299 ng/L (</=54) D-Dimer, Quantitative 0.84 mg/L FEU (0.0-0.49) B-Type Natriuretic Peptide 825.98 pg/mL (0-100) Thyroid Stimulating Hormone (TSH) 0.51 uIU/mL (0.55-4.78) Other Laboratory Tests 10/08/24 06:14 Brief Hx & Hospital Course: Patient is 54 years old male with past medical history of severe ischemic cardiomyopathy, LVEF< 10%, HFrEF, S/P PTCA, Stent to LAD, LCS, RCA, PAD,DM- type2, Biotronik AICD, coronary artery disease, OR x4, peripheral artery disease, hypothyroidism came with a complaint of chest pain and shortness of breaths. Patient reported he started having chest pain on Thursday when he was coming from [place] to [place] which continued over the hours. Pain was central in nature, pressure-like, found out of 10, no radiation, no aggravating or relieving factor. Patient also endorsed shortness of breath with the chest pain which was getting worse of the time. Patient denied any fever, abdominal pain, dysuria, acute joint pain or swelling, dysarthria or change in vision. Initial lab workup revealed leukocytosis with WBC 12.9> 13.4, elevated total bilirubin 2.1> 3.8, elevated troponin 3900< 4402> 4299, BNP 825.98, TSH 0.51, magnesium 2.1. CXR-Pulmonary vascular congestion. CT angio-No pulmonary embolism is identified. Some of the distal pulmonary arteries cannot be evaluated due to suboptimal opacification. Small esophageal hiatal hernia. Hospital course-came to the hospital due to chest pain and shortness of breaths. Patient was admitted to the hospital due to suspected acute coronary syndrome. Initial lab workup revealed leukocytosis with WBC 12.9> 13.4, elevated total bilirubin 2.1> 3.8, elevated troponin 3900< 4402> 4299, BNP 825.98, TSH 0.51, magnesium 2.1. CXR-Pulmonary vascular congestion. CT angio-No pulmonary embolism is identified. Some of the distal pulmonary arteries cannot be evaluated due to suboptimal opacification. Small esophageal hiatal hernia. Patient had left heart catheterization done on 0 10/06/24. Status post successful revascularization of the proximal left anterior descending artery with thrombectomy. Angioplasty of the ostial obtuse marginal 1. Angioplasty of the proximal circumflex extending into the left main. Patient's prognosis due to multiple comorbidity with with LVEF less than 20%. Patient was transferred to ICU following left heart catheterization as patient was put on IABP. Patient was successfully removed from IABP. Following that patient was transferred to [facility]. Patient's symptoms improved with conservative managed. Patient is being discharged home with aspirin 81 mg by mouth daily, Plavix 75 mg p.o. daily, Eliquis 2.5 mg p.o. b.i.d. patient was advised to resume other home medications. Patient was advised to follow up with the primary care physician in 1 week and also to follow up with the powdered metal supervisor in 2-3 weeks. Patient was advised about the importance of med compliance and also counseled about the effect of substance abuse on health. Patient was hemodynamically stable on discharge. Patient's meds were sent to the pharmacy electronically. Diagnosis #Acute coronary syndrome due to NSTEMI type 1 # acute hypoxic respiratory failure due to acute on chronic HFrEF # S/P successful revascularization of the proximal left anterior descending artery with thrombectomy. Angioplasty of the ostial obtuse marginal 1. Angioplasty of the proximal circumflex extending into the left main. Patient's prognosis due to multiple comorbidity with with LVEF less than 20%. #severe ischemic cardiomyopathy, LVEF< 20%, Patient was transfetrred to ICU due to post cath IABP. #HFrEF, #DM type2 #PAD # elevated D-dimer, rule out PE #S/P PTCA, Biotronik AICD, #coronary artery disease, OR x4, #peripheral artery disease, # elevated bilirubin likely due to alcoholism #hypothyroidism #Small esophageal hiatal hernia. # hypokalemia replenished # no UTI # history of right above-knee amputation Discharge plan- Aspirin 81 mg p.o. daily Continue Plavix 10 mg p.o. daily Eliquis 2.5 mg p.o. times a day -continue atorvastatin 40 mg p.o. q.h.s. -continue Lasix 20 mg in the morning -continue levothyroxine 25 mg p.o. q.a.m. -pregabalin 100 mg p.o. q.i.d. -resume other home medications Please follow up with your primary care physician in 1 week Please follow up with the powdered metal supervisor in 2-[address] Arcos Patient was counseled about the effect of substance abuse on health Patient was counseled about the importance of med compliance Operations or Procedures [place] [id number] Ph: [phone] DIAGNOSTIC IMAGING Diagnostic Imaging Report : [id number] Signed PATIENT: DONA BRYANT FACCT: [id number] UNIT: [id number] : 1970 LOC: ER ROOM / BED: / AGE / SEX: 54 / M ADM STATUS: REG ER SERVICE 1233 ORDERING PHYSICIAN: INDU WING MD PROCEDURE(s): CXRP - CHEST PORTABLE REASON: CP/sob ORDER NUMBER(s): [id number], ACCESSION NUMBER(s): [id number] CHEST RADIOGRAPH Indication: CP/sob Technique: Single frontal view of the chest was obtained COMPARISON: None FINDINGS: Lines and Tubes: Left chest wall AICD Lungs: Congestion Pleura: No effusion. No pneumothorax. Cardiomediastinal contours: Unremarkable Bones: Unremarkable IMPRESSION: Pulmonary vascular congestion ATED BY: PETE RICE MD DICTATED DATE/TIME: 10/03/24 130 SIGNED BY: PETE RICE MD SIGNED DATE/TIME: 10/03/24 130 CC: [address] [id number] Ph: [phone] DIAGNOSTIC IMAGING Diagnostic Imaging Report : [id number] Signed PATIENT: DONA BRYANT FACCT: [id number] UNIT: [id number] : 1970 LOC: ER ROOM / BED: / AGE / SEX: 54 / M ADM STATUS: REG ER SERVICE 1621 ORDERING PHYSICIAN: INDU WING MD PROCEDURE(s): CTACH - CT ANGIO CHEST CONTRAST REASON: cp, hi dimer and trop, r/o PE ORDER NUMBER(s): [id number], ACCESSION NUMBER(s): [id number] EXAM: CT Angiography Chest With Intravenous Contrast CLINICAL INDICATION: cp, hi dimer and trop, r/o PE TECHNIQUE: Axial computed tomographic angiography images of the chest with intravenous contrast. This CT exam was performed using one or more of the following dose reduction techniques: automated exposure control, adjustment of the mA and/or kV according to patient size, and/or use of iterative reconstruction technique. MIP reconstructed images were created and reviewed. CONTRAST: COMPARISON: Comparison FINDINGS: LIMITATIONS: Suboptimal opacification of the pulmonary arteries. PULMONARY ARTERIES: No pulmonary embolism is identified. Some of the distal pulmonary arteries cannot be evaluated due to suboptimal opacification. AORTA: Scattered calcified atherosclerotic disease of aorta. No thoracic aortic aneurysm. LUNGS AND PLEURAL SPACES: Lung emphysema. Dependent atelectasis. No mass. No significant effusion. No pneumothorax. HEART: Unremarkable. No cardiomegaly. No significant pericardial effusion. No evidence of RV dysfunction. MEDIASTINUM: Small esophageal hiatal hernia. BONES/JOINTS: No acute fracture. No dislocation. SOFT TISSUES: Unremarkable. LYMPH NODES: Unremarkable. No enlarged lymph nodes. LIVER: Hepatic cysts. OTHER FINDINGS: . . . .. IMPRESSION: 1. No pulmonary embolism is identified. Some of the distal pulmonary arteries cannot be evaluated due to suboptimal opacification. 2. Small esophageal hiatal hernia. ATED BY: DONITA ALMANZA MD DICTATED DATE/TIME: 10/03/241710 SIGNED BY: DONITA ALMANZA MD SIGNED DATE/TIME: 10/03/241710 CC: [place] [id number] Ph: [phone] DIAGNOSTIC IMAGING Diagnostic Imaging Report : [id number] Signed PATIENT: DONA BRYANT FACCT: [id number] UNIT: [id number] : 1970 LOC: ICU WEST ROOM / BED: [address] [place] [address] / A AGE / SEX: 54 / M ADM STATUS: ADM IN SERVICE 1237 ORDERING PHYSICIAN: BUSHRA MARQUES MD PROCEDURE(s): CXRP - CHEST PORTABLE REASON: S/P IABP ORDER NUMBER(s): [id number], ACCESSION NUMBER(s): [id number] EXAM: XY CHEST PORTABLE Indication: S/P IABP Technique: Single frontal view of the chest was obtained Comparison: XY CHEST PORTABLE on DOS: 10/03/24, XY CHEST XRAY 1 VIEW on DOS: 02/05/24, XY CHEST PORTABLE on DOS: 02/04/24, XY CHEST XRAY 1 VIEW on DOS: 02/04/24 FINDINGS: Lines and Tubes: Cardiac pacemaker projects over left chest wall. Intra-aortic balloon pump projects 10 mm below the top of the aortic notch. Lungs: No focal consolidation. Pleura: No effusion. No pneumothorax. Cardiomediastinal contours: Cardiomegaly. Bones: No acute osseous abnormality. IMPRESSION: Cardiomegaly. Cardiac pacemaker projects over left chest wall. Intra-aortic balloon pump projects 10 mm below the top of the aortic notch. ATED BY: SERVANDO SAWYER MD DICTATED DATE/TIME: 10/06/241413 SIGNED BY: SERVANDO SAWYER MD SIGNED DATE/TIME: 10/06/241413 CC: [place] [id number] Ph: [phone] DIAGNOSTIC IMAGING Diagnostic Imaging Report : [id number] Signed PATIENT: DONA BRYANT FACCT: [id number] UNIT: [id number] : 1970 LOC: ICU WEST ROOM / BED: [address] [place] [address] A AGE / SEX: 54 / M ADM STATUS: ADM IN SERVICE 0400 ORDERING PHYSICIAN: BUSHRA MARQUES MD PROCEDURE(s): CXRP - CHEST PORTABLE REASON: IABP PLACEMENT ORDER NUMBER(s): [id number], ACCESSION NUMBER(s): [id number] EXAM: XR Chest, 1 View CLINICAL INDICATION: IABP PLACEMENT TECHNIQUE: Frontal view of the chest. COMPARISON: XY CHEST PORTABLE on DOS: 10/06/24, XY CHEST PORTABLE on DOS: 10/03/24, XY CHEST XRAY 1 VIEW on DOS: 02/05/24, XY CHEST PORTABLE on DOS: 02/04/24, XY CHEST XRAY 1 VIEW on DOS: 02/04/24 FINDINGS: LUNGS AND PLEURAL SPACES: Unremarkable. No consolidation. No pneumothorax. HEART: Cardiomegaly without overt failure. MEDIASTINUM: Unremarkable. Normal mediastinal contour. BONES/JOINTS: Unremarkable. No acute fracture. TUBES, LINES AND DEVICES: Left-sided cardiac pacemaker. OTHER FINDINGS: . None. . .. IMPRESSION: Cardiomegaly without overt failure. ATED BY: DONITA ALMANZA MD DICTATED DATE/TIME: 10/07/24604 SIGNED BY: DONITA ALMANZA MD SIGNED DATE/TIME: 10/07/24604 CC: Condition at Discharge: Stable Final Diagnosis/Problems List #Acute coronary syndrome due to NSTEMI type 1 # acute hypoxic respiratory failure due to acute on chronicHFrEF # S/P successful revascularization of the proximal left anterior descending artery with thrombectomy. Angioplasty of the ostial obtuse marginal 1. Angioplasty of the proximal circumflex extending into the left main. Patient's prognosis due to multiple comorbidity with with LVEF less than 20%. #severe ischemic cardiomyopathy, LVEF< 20%, Patient was transfetrred to ICU due to post cath IABP. #HFrEF, #DM type2 #PAD #S/P PTCA, Biotronik AICD, #coronary artery disease, OR x4, #peripheral artery disease, # elevated bilirubin likely due to alcoholism #hypothyroidism #Small esophageal hiatal hernia. # hypokalemia replenished Discharge Disposition: Home Discharge Instruct/Medications Follow Up/Referral: Please follow up with your primary care physician in 1 week Please follow up with the powdered metal supervisor in 2-[address] Arcos Patient was counseled about the effect of substance abuse on health Patient was counseled about the importance of med compliance Medications: Aspirin 81 mg p.o. daily Continue Plavix 10 mg p.o. daily Eliquis 2.5 mg p.o. times a day -continue atorvastatin 40 mg p.o. q.h.s. -continue Lasix 20 mg in the morning -continue levothyroxine 25 mg p.o. q.a.m. -pregabalin 100 mg p.o. q.i.d. -resume other home medications Please follow up with your primary care physician in 1 week Please follow up with the powdered metal supervisor in 2-3 weeks Patient was counseled about the effect of substance abuse on health Patient was counseled about the importance of med compliance Discharge Statement: "Patient was advised to return to the ER or call 911 if any headaches, dizziness, shortness of breath, chest pain, abdominal pain, bleeding, fevers, or worsening of medical condition. Patient was counseled about treatment plan, medications, possible side effects, patientverbalized understanding. All questions were answered to the best of my ability. This discharge took greater then 30 minutes in planning, reviewing documentation, counseling the patient, and discussing with other team members." ASSESSMENT ASSESSMENT Assessment Date of Service: Oct 08, 2024 Billing Provider: ROSY BEAN MD Common Visit Codes: 17947-IIX/OBS DISCH DAY >30min LEENA DOZIER RESIDENT Oct 08, 2024 12:00 ROSY BEAN MD Oct 10, 2024 00:37
[2024-10-08] MEDS ORDERED: APIX5TAB PO ×3 (12:40→14:26)
[2024-10-08] MEDS ORDERED: PANT40T PO (12:40)
[2024-10-08] MEDS ORDERED: ASPI-498 OR (12:40)
[2024-10-08] MEDS ORDERED: PANT40TA2 PO (14:25)
[2024-10-08] MEDS ORDERED: ASPI1TAB19 PO (14:25)
== END 2024-10-08 17:54 | disposition home or self-care (01) | DRG 175 ==
LOC: ER 12:21 → TELE 20:12 → TELE-WESTW 10-04 11:28 → OVERFLOW 10-04 15:48 → WEST WING 10-04 16:01 → OVERFLOW 10-05 13:22 → TELE-WESTW 10-05 13:41 → ICU WEST 10-06 13:12 → TELE-WESTW 10-08 01:15
PROVIDERS: ADMIT Internal Medicine Pulmonary Disease; ATTEND Emergency Medicine
PROC: 027237Z Dilation of Coronary Artery, Three Arteries with Four or More Drug-eluting Intraluminal Devices, Percutaneous Approach (ICD-10-PCS; principal; 2024-10-06)
PROC: 5A02210 Assistance with Cardiac Output using Balloon Pump, Continuous (ICD-10-PCS; 2024-10-06)
PROC: 02C13ZZ Extirpation of Matter from Coronary Artery, Two Arteries, Percutaneous Approach (ICD-10-PCS; 2024-10-06)
PROC: B2111ZZ Fluoroscopy of Multiple Coronary Arteries using Low Osmolar Contrast (ICD-10-PCS; 2024-10-06)
PROC: 4A023N7 Measurement of Cardiac Sampling and Pressure, Left Heart, Percutaneous Approach (ICD-10-PCS; 2024-10-06)
PROC: 05HA33Z Insertion of Infusion Device into Left Brachial Vein, Percutaneous Approach (ICD-10-PCS; 2024-10-06)
PROC: B54NZZA Ultrasonography of Left Upper Extremity Veins, Guidance (ICD-10-PCS; 2024-10-06)
DX: I25.10 Atherosclerotic heart disease of native coronary artery without angina pectoris (principal); J96.01 Acute respiratory failure with hypoxia; I21.4 Non-ST elevation (NSTEMI) myocardial infarction; I50.23 Acute on chronic systolic (congestive) heart failure; I24.9 Acute ischemic heart disease, unspecified; I73.9 Peripheral vascular disease, unspecified; K44.9 Diaphragmatic hernia without obstruction or gangrene; E03.9 Hypothyroidism, unspecified; I25.5 Ischemic cardiomyopathy; F12.90 Cannabis use, unspecified, uncomplicated; E87.6 Hypokalemia; D72.829 Elevated white blood cell count, unspecified; Z88.5 Allergy status to narcotic agent; Z79.899 Other long term (current) drug therapy; Z79.1 Long term (current) use of non-steroidal anti-inflammatories (NSAID); Z79.891 Long term (current) use of opiate analgesic; I25.2 Old myocardial infarction
CPT/HCPCS: 33967; 36415; 71045; 71275; 80048; 80053; 80307; 80320; 81001; 83735; 83880; 84100; 84132; 84439; 84443; 84481; 84484; 85025; 85379; 85610; 85730; 87086; 92929; 92941; 92973; 93005; 93458; 94640; 96374; 99152; 99291; C1874; G0378; J2003; J2250; J2405; Q9967

== ENCOUNTER → 2024-11-21 | Outpatient (CLI) | payer MEDICAID ==
[~2024-11-21] MED LIST changes: +APIX2.5T PO; +APIX5TAB PO; +ASPI1TAB19 PO; -MIRT1TAB38 PO; +PANT40TA2 PO; +POM; -POTA-228 PO; +POTA8TAB38 PO; +SILD100T PO
[2024-11-21 13:08] VITALS: BP 99/58; PULSE 76; O2SAT 97
[2024-11-21 13:27] VITALS: BP 94/53; PULSE 69
--- NOTE | 2024-11-21 13:43 | DVH ---
XY CHEST TWO VIEWS ROUTINE CLINICAL HISTORY: PRE OP, pain COMPARISON: XY CHEST TWO VIEWS ROUTINE on DOS: 04/26/24, XY CHEST TWO VIEWS ROUTINE on DOS: 03/15/24, XY CHEST TWO VIEWS ROUTINE on DOS: 01/27/24 TECHNIQUE: Frontal and lateral view of the chest was obtained FINDINGS: Lines and Tubes: Left pacemaker/ AICD. Lungs: No focal consolidation. Pleura: No effusion. No pneumothorax. Cardiomediastinal contours: Unremarkable Bones: No acute osseous abnormality. IMPRESSION: No acute cardiopulmonary disease.
== END | disposition home or self-care (01) ==
LOC: Rad HDHVI 13:00
PROVIDERS: ATTEND Internal Medicine Cardiovascular Disease
DX: Z01.818 Encounter for other preprocedural examination (principal); R94.31 Abnormal electrocardiogram [ECG] [EKG]; I65.21 Occlusion and stenosis of right carotid artery
CPT/HCPCS: 71046; 93005; G0463

== ENCOUNTER 2024-11-24 08:03 | Day surgery (SDC) | payer MEDICAID ==
[2024-11-21 15:44] LABS: Basophils # (auto) 0 10 ^3/uL (0-0.2); Basophils % (auto) 0.6 % (0.0-2.0); Eosinophils # (auto) 0.1 10 ^3/uL (0-0.8); Eosinophils % (auto) 0.7 % (0.0-7.0); Hematocrit 35.5 % (41.0-53.0); Lymphocytes # (auto) 1.8 10 ^3/uL (0.4-5.4); Lymphocytes % (auto) 22.4 % (10.0-50.0); Mean Corpuscular Hemoglobin 27.9 pg (28.0-32.0); Mean Corpuscular Hgb Conc. 33.7 g/dL (32.0-36.0); Mean Corpuscular Volume 82.8 fL (80.0-100.0); Monocytes # (auto) 0.4 10 ^3/uL (0-1.3); Monocytes % (auto) 5.2 % (0.0-12.0); Neutrophils # (auto) 5.6 10 ^3/uL (1.6-8.6); Neutrophils % (auto) 71.1 % (37.0-80.0); Platelet Count (auto) 246 10^3/uL (140-450); Red Blood Cells 4.29 10^6/uL (4.5-5.90); Red Cell Distribution Width 14.6 % (11.8-14.3); White Blood Cell 7.9 10^3/uL (4.4-10.8)
[2024-11-21 16:02] LABS: INR 1.13 (0.9-1.15); Partial Thromboplastin Time 32.2 SEC (24.5-34.5); Prothrombin Time 11.8 sec (9.3-11.8)
[2024-11-21 16:53] LABS: Sodium 142 mmol/L (136-145)
[2024-11-21 16:54] LABS: Anion Gap 5 (5-15); Calcium 9.5 mg/dL (8.7-10.4); Carbon Dioxide 26 mmol/L (20-31)
[2024-11-21 16:56] LABS: Chloride 111 mmol/L (98-107); Potassium 3.4 mmol/L (3.5-5.1)
[2024-11-21 16:59] LABS: BUN/Creatinine Ratio 15.9 (10.0-20.0); Blood Urea Nitrogen 14 mg/dL (9-23)
[2024-11-21 17:01] LABS: Glucose 112 mg/dL (74-106)
[~2024-11-24] VITALS: Ht 175.3 cm; Wt 76.2 kg
[2024-11-24] VITALS (9 sets, daily range): BP systolic 103–126; BP diastolic 74–85; PULSE 66–90; RESP 12–25; TEMP 97.7; O2SAT 94–96
[~2024-11-24 08:03] MED LIST changes: -APIX2.5T PO; -POTA-180 PO; -PREG150C63 PO
[2024-11-24] MEDS ORDERED: fentaNYL CITRATE 100 MCG/2 ML VL ONE (09:44)
[2024-11-24] MEDS ORDERED: ANGIOMAX 250 MG VIAL IV ONE (09:44)
[2024-11-24] MEDS ORDERED: SODIUM CHL 0.9% 50 ML ONE (09:45)
[2024-11-24] MEDS ORDERED: MIDAZOLAM HCL 2MG/2ML 2ml VIAL (1mg/ml) ONE (09:45)
[2024-11-24] MEDS ORDERED: IOHEXOL 350 MG/ML 100ML IJ ONE (09:55)
[2024-11-24] MEDS ORDERED: LIDOCAINE 2%HCL (LOCAL ANESTH.) INJ 20ML MDV ONE (10:04)
[2024-11-24] MEDS ORDERED: ASPirin 81 mg TAB ONE (10:41)
[2024-11-24] MEDS ORDERED: CLOPIDOGREL BISULFATE 75 MG TAB ONE (10:41)
--- NOTE | 2024-11-24 11:04 | DVHHP2 ---
Admitting Diagnosis: ischemic cm angina >90% stenosis of ostial cx and lad extending into left main coronary artery History of Present Illness History of Present Illness The patient is a 54-year-old male with past medical history of OH, CHF, Coronary artery disease, and pneumonia who presented to [facility] ED with complaint of shortness of breaths. Patient reports symptoms progressively get worse with substernal chest pain, nonradiating, rating 7/10 numeric scale, associated productive cough, increased work of breathing, getting worse that prompted this visit. Patient was seen and evaluated in the ED, laboratory data shows WBC 12.9, platelets 225, sodium 142, potassium 3.9, BUN 12, creatinine 0.93, GFR 96, glucose 98, troponin 3900, BNP 825.98, D-dimer 0.84. Chest x-ray revealing pulmonary vascular congestion. Patient was started on heparin drip, given IV Lasix, please see medication orders section in the computer. On my assessment, patient denied chest pain at this moment, no headache, no dizziness, no diaphoresis, currently on oxygen, no diarrhea, no nausea, no vomiting, no fev er, no chills. Patient was admitted for further evaluation and medical management. Past Medical History CAD, CHF, OH (4), PNA Past Surgical History AKA (right ), PTCA, ICD Family History Reviewed, noncontributory to the management of this case. Past Social History The patient lives at home, drinks alcohol occasionally, denies alcohol, uses marijuana. Patient Family History: FH: mental illness MOTHER Ischemic heart disease FATHER Allergies: Coded Allergies: Banana (Verified Allergy, Unknown, itching, 11/21/24) Codeine (Verified Allergy, Unknown, 04/26/24) Morphine (Verified Allergy, Unknown, 04/26/24) Pear (Verified Allergy, Unknown, Swollen Tongue, 11/21/24) Home Meds Active Scripts Apixaban Base (ELIQUIS) 5 Mg Tab, 5 MG PO BID for 30 Days, #60 TAB 1 Refill Prov:ROSY BEAN MD 10/08/24 Pantoprazole Sodium Sesquihydr (Protonix) 40 Mg Tab, 40 MG PO DAILY for 30 Days, #30 TAB 0 Refills Prov:ROSY BEAN MD 10/08/24 Aspirin (Aspirin) 81 Mg Tab, 81 MG PO DAILY for 30 Days, #30 TAB 1 Refill Prov:ROSY BEAN MD 10/08/24 Reported Medications Patients Own Medication (PATIENTS OWN MEDICATION) ., BID for YULPERI MED NEB TX BID PTS OWN MED-OBTAIN FROM PT AND SEND TO RX DRUG: FREQ: RX# EXP: DATE DISP: TECH: [facility]: 11/21/24 Ipratropium-Albuterol (COMBIVENT RESPIMAT) Respimat Aer, 20 MCG IN DAILY for SOB, AER 11/21/24 Potassium Chloride (Klor-Con 8) 8 Meq Tab, 8 MEQ PO DAILY for SUPPLEMENT, TAB 11/21/24 Pregabalin (Lyrica) 100 Mg Cap, 1 CAP PO QID for NERVE PAIN, #90 CAP 2 Refills 11/21/24 Sildenafil Citrate (Viagra) 100 Mg Tab, 1 TAB PO DAILYP, #6 TAB 11 Refills 11/21/24 Atorvastatin Calcium (Lipitor) 80 Mg Tab, 1 TAB PO DAILY for 100 Days, #100 10/05/24 Naloxegol Oxalate (Movantik) 25 Mg Tab, 1 TAB PO DAILY for 30 Days, #30 10/05/24 Mirtazapine (Mirtazapine Oral Disintegrating Tablet) 7.5 Mg Tab, 1 TAB PO BID for 30 Days, #60 10/05/24 Hydroxyzine Hcl (Hydroxyzine Hcl) 10 Mg Tab, 10 MG PO HS for Anxiety, MG 04/26/24 Clopidogrel Bisulfate (Plavix) 75 Mg Tab, 1 TAB PO DAILY for SP STENT, #90 TAB 1 Refill 04/26/24 Acetaminophen (Acetaminophen ER 8 Hour) 650 Mg Tab, 650 MG PO PRN, TAB 01/28/24 Levothyroxine Sodium (Synthroid) 25 Mcg Tab, 1 TAB PO DAILY, #30 TAB 5 Refills 01/28/24 Hydrocodone-Acetaminophen (Hydrocodone Bitartrate/AC 10-325 mg) 1 Tab Tab, 1 TAB PO QID PRN for PAIN SCALE 7 THRU 10 for 30 Days, #120 01/27/24 Furosemide (Lasix) 20 Mg Tb, 1 TAB PO DAILY for EDEMA for 30 Days, #30 01/27/24 Review of Systems Review of Systems Review of Systems Constitutional: No: Fever, Chills, Sweats, Weakness, Malaise, Other Eyes: No: Pain, Vision change, Conjunctivae inflammation, Eyelid inflammation, Other, Redness ENT: No: Ear pain, Ear discharge, Nose pain, Nose discharge, Nose congestion, Mouth pain, Mouth swelling, Throat pain, Throat swelling, Other Respiratory: Cough, Shortness of breath, SOB with excertion, Other (SOB at rest); No: Dry, Wheezing, Hemoptysis, Pleuritic Pain, Sputum, Wheezing Cardiovascular: Chest Pain; No: Palpitations, Orthopnea, Paroxysmal Noc. Dyspnea, Edema, Lt Headedness, Other Gastrointestinal: No: Nausea, Vomiting, Abdominal Pain, Diarrhea, Constipation, Melena, Hematochezia, Other Genitourinary: No Dysuria, No Frequency, No Incontinence, No Hematuria, No Retention, No Other Musculoskeletal: No: other, neck pain, shoulder pain, arm pain, back pain, hand pain, leg pain, foot pain Skin: No: Rash, Lesions, Jaundice, Bruising, Other Neurological: No: Weakness, Numbness, Incoordination, Change in speech, Confusion, Seizures, Other Allergies: Coded Allergies: Codeine (Verified Allergy, Unknown, 04/26/24) Morphine (Verified Allergy, Unknown, 04/26/24) General Appearance: Alert, Oriented X3, Cooperative, No acute distress HEENT: Atraumatic, PERRLA, EOMI, Mucous membr. moist/pink Respiratory: Normal air movement, Other (Diminished breath sounds) Cardiovascular: Regular rate, Normal S1, Normal S2, No murmurs Abdominal: Normal bowel sounds, Soft, No tenderness, No hepatospenomegaly, No masses Extremities: No clubbing, No cyanosis, No edema, Normal pulses, No tenderness/swelling Skin: No rashes, No breakdown, No significant lesion Neuro: Normal gait, Normal speech, Strength at 5/5 X4 ext, Normal tone, Sensation intact, Cranial nerves 3-12 NL, Reflexes 2+ Psych/Mental Status: Mental status NL, Mood NL Physical Exam General Appearance: Alert, Oriented X3, Cooperative, No acute distress HEENT: Atraumatic, PERRLA, EOMI, Mucous membr. moist/pink Respiratory: Normal air movement, Other (Diminished breath sounds) Cardiovascular: Regular rate, Normal S1, Normal S2, No murmurs Abdominal: Normal bowel sounds, Soft, No tenderness, No hepatospenomegaly, No masses Extremities: No clubbing, No cyanosis, No edema, Normal pulses, No tenderness/swelling Skin: No rashes, No breakdown, No significant lesion Neuro: Normal gait, Normal speech, Strength at 5/5 X4 ext, Normal tone, Sensation intact, Cranial nerves 3-12 NL, Reflexes 2+ Psych/Mental Status: Mental status NL, Mood NL Results Labs Test 11/21/24 15:33 Range/Units White Blood Count 7.9 4.4-10.8 10^3/uL Red Blood Count 4.29 L 4.5-5.90 10^6/uL Hemoglobin 12.0 L 13.5-17.5 g/dL Hematocrit 35.5 L 41.0-53.0 % Mean Corpuscular Volume 82.8 80.0-100.0 fL Mean Corpuscular Hemoglobin 27.9 L 28.0-32.0 pg Mean Corpuscular Hemoglobin Concent 33.7 32.0-36.0 g/dL Red Cell Distribution Width 14.6 H 11.8-14.3 % Platelet Count 246 140-450 10^3/uL Mean Platelet Volume 9.4 6.9-10.8 fL Neutrophils (%) (Auto) 71.1 37.0-80.0 % Lymphocytes (%) (Auto) 22.4 10.0-50.0 % Monocytes (%) (Auto) 5.2 0.0-12.0 % Eosinophils (%) (Auto) 0.7 0.0-7.0 % Basophils (%) (Auto) 0.6 0.0-2.0 % Neutrophils # (Auto) 5.6 1.6-8.6 10 ^3/uL Lymphocytes # (Auto) 1.8 0.4-5.4 10 ^3/uL Monocytes # (Auto) 0.4 0-1.3 10 ^3/uL Eosinophils # (Auto) 0.1 0-0.8 10 ^3/uL Basophils # (Auto) 0 0-0.2 10 ^3/uL Nucleated Red Blood Cells 0.0 % Prothrombin Time 11.8 9.3-11.8 sec Prothrombin Time INR 1.13 0.9-1.15 Activated Partial Thromboplast Time 32.2 24.5-34.5 SEC Sodium Level 142 136-145 mmol/L Potassium Level 3.4 L 3.5-5.1 mmol/L Chloride Level 111 H 98-107 mmol/L Carbon Dioxide Level 26 20-31 mmol/L Anion Gap 5 5-15 Blood Urea Nitrogen 14 9-23 mg/dL Creatinine 0.88 0.700-1.30 mg/dL Glomerular Filtration Rate Calc 101 >90 mL/min BUN/Creatinine Ratio 15.9 10.0-20.0 Serum Glucose 112 H 74-106 mg/dL Calcium Level 9.5 8.7-10.4 mg/dL Admitting Diagnosis: ISCHEMIC CM HFrEF CHRONIC CAD Plan [facility] PTCA STENT CX AND LEFT MAIN Plan discussed with: Patient BUSHRA MARQUES MD Nov 24, 2024 11:04
--- NOTE | 2024-11-24 11:37 | DVHDS ---
DATE OF DISCHARGE: 11/24/2024 DISCHARGE DIAGNOSES: * Ischemic cardiomyopathy. * Heart failure with reduced ejection fraction. The patient previously had stent placement in the proximal left anterior descending artery, proximal circumflex and proximal obtuse marginal 1, but ostial circumflex had still significant narrowing and so did ostial LAD, but because of excessive dye use previously, we had to hold up, so the procedure can be staged. Now, the patient underwent successful angioplasty, thrombectomy and shockwave treatment of the ostial circumflex and ostial LAD and stent placement extending into the left main from the ostial LAD, extending into the left main from the ostial circumflex. Both arteries were deployed at 16 atmospheres. No complication. All 3 blood vessels are patent, , obtuse marginal 1 and circumflex with less than 10% residual stenosis. Right coronary artery is large dominant vessel without any flow restrictive lesion. Ejection fraction was less than 20%. He has a Bi-V AICD. We will continue to follow up patient. Isrrael Nazario MD SA/MONET/MICHAEL TID: [id number] RECEIPT: [id number]
--- NOTE | 2024-11-24 11:54 | DVHOP ---
DATE OF SURGERY: 11/24/2024 PROCEDURES PERFORMED: * Selective left and right coronary angiography. * Ventriculogram. * Angioplasty. FFR of the left main, FFR of the ostial circumflex, FFR of the left anterior descending artery. * Left heart catheterization. * Shockwave and thrombectomy of the ostial circumflex and left anterior descending artery. * Angioplasty with stent placement of the circumflex with a 2.5 x 12 mm Lakeshore stent extending into the left main, angioplasty with stent placement of the left anterior descending artery with a 2.5 x 12 mm Keo stent extending into the left main. * Thrombectomy and shockwave treatment of the obtuse marginal 1 as well. * Balloon angioplasty of the obtuse marginal 1 with a 3.0 x 15 mm noncompliant balloon. DESCRIPTION OF PROCEDURE: The patient was prepped and draped in a sterile condition. A 1% Xylocaine used to anesthetize the right groin. Using a Cook needle, the right femoral artery was engaged with Seldinger technique, a 6-Malaysian sheath in the right femoral artery. Using 6-Malaysian JL4 catheter and 6-Malaysian JR4 catheter, selective left and right coronary angiographies were performed. Then, 6-Malaysian diagnostic system was exchanged for a 6-Malaysian interventional system. Using 6-Malaysian XB 3.5 guide catheter, the left main was cannulated. Using a ChoICE PT extra support wire, the left anterior descending artery was crossed. Similarly, using a Runthrough wire, the circumflex artery was ____ and a third wire was placed as ChoICE PT extra support wire into the obtuse marginal 1. The obtuse marginal 1 was thrombectomized using a shockwave balloon and thrombectomy catheter with a 2.5 x 12 mm shockwave balloon. It already had a stent in it from previous intervention. Similarly, the left anterior descending artery was treated with a 2.5 x 12 mm shockwave balloon at the LAD and the left main as well. Following that, two simultaneous stents were placed; a 2.5 x 12 and a 2.5 x 12 mm Keo stent was deployed simultaneously in the left ostium of the left anterior descending artery and ostium of the circumflex extending into the left main. Each vessel was angioplastied at 16 atmospheres. There were no complications. The patient tolerated the procedure well. RESULTS: * The patient's FFR of the ostial circumflex was 0.7. * Left heart catheterization showed a distal left main 90% narrowing. * Ostial LAD 90% narrowing. * Ostial circumflex had a 90% narrowing extending into the circumflex in the AV groove and the obtuse marginal 1. * Conscious sedation. Following the above treatment and stent placement, there was less than 10% residual stenosis in the left main, less than 10% residual stenosis in the ostial left anterior descending artery, less than 10% residual stenosis of obtuse marginal 1 and less than 10% residual stenosis in the circumflex in the AV groove. There were no complications. The patient tolerated the procedure well. The patient will then be maintained on dual-antiplatelet therapy. Isrrael Nazario MD SA/MONAE/MICHAEL TID: [id number] RECEIPT: [id number]
[2024-11-24] MEDS: HYDROcodone-ACET 10/325MG TAB PO ONE (12:31)
[2024-11-24] MEDS: PREGABALIN 25 MG CAP PO ONE (12:56)
[2024-11-24] MEDS ORDERED: APIX2.5T PO ×2 (13:39→13:42)
[2024-11-24] MEDS ORDERED: APIXABAN 2.5 MG TAB PO SCH (22:00)
== END 2024-11-24 14:16 | disposition home or self-care (01) ==
LOC: CATH 08:03
PROVIDERS: ATTEND Internal Medicine Cardiovascular Disease
DX: I25.10 Atherosclerotic heart disease of native coronary artery without angina pectoris (principal); I25.2 Old myocardial infarction; I25.5 Ischemic cardiomyopathy; Z79.01 Long term (current) use of anticoagulants; Z79.82 Long term (current) use of aspirin; Z79.890 Hormone replacement therapy; Z79.899 Other long term (current) drug therapy; Z95.5 Presence of coronary angioplasty implant and graft; Z88.5 Allergy status to narcotic agent; Z91.018 Allergy to other foods
CPT/HCPCS: 0523T; 36415; 80048; 85025; 85610; 85730; 92973; 93454; C1725; C1760; C1761; C1769; C1874; C1887; C1894; C9600; J0583; J1644; J2250; J3010; J7030; Q9967; 92972; 99152; 99153

== ENCOUNTER 2024-12-17 09:13 | Inpatient (IN) | payer MEDICAID, OTHER ==
[~2024-12-17] VITALS: Ht 175.3 cm; Wt 77.2 kg
[2024-12-17] VITALS (7 sets, daily range): BP systolic 128–133; BP diastolic 78–86; PULSE 83–104; RESP 16–20; TEMP 98–98.3; O2SAT 91–99
[~2024-12-17 09:13] MED LIST changes: +APIX2.5T PO
--- NOTE | 2024-12-17 09:36 | ED.PDOC ---
SOB-HPI HPI Comments 54Y M with PMHx CAD, NM x4, AICD, PAD, CHF, DM, hypothyroidism, and rt LALITHA presents to ED with chief complaint SOB x last night. Pt states he gave himself two breathing treatments this morning, but has not experienced relief. Last breathing tx was at 0800. No other signs/symptoms or history reported. Time Seen by MD: 09:24 Reviewed notes: Nurses Notes, Medications, Allergies Information Source: Patient Mode of Arrival: Wheelchair Severity: Mild Timing: Hours Duration: Since onset Context: At Rest PE Risk Factors: None History of: CHF Prehospital treatment: Breathing Tx Modifying Factors: Nothing Associated Signs and Symptoms: None Past Medical History PAST MEDICAL HISTORY: CAD, CHF, DM, NM, PAD, Thyroid Surgical History: AKA, PTCA Family History Family History: Unknown Social History Smoker: Non-Smoker Alcohol: Denies ETOH Use Drugs: Marijuana Lives In: Home Constitutional: denies: chills, diaphoresis, fatigue, fever, malaise, sweats, weakness, others EENTM: denies: blurred vision, double vision, ear bleeding, ear discharge, ear drainage, ear pain, ear ringing, eye pain, eye redness, hearing loss, mouth pain, mouth swelling, nasal discharge, nose bleeding, nose congestion, nose pain, photophobia, tearing, throat pain, throat swelling, voice changes, others Respiratory: reports: shortness of breath; denies: cough, hemoptysis, orthopnea, SOB at rest, SOB with excertion, stridor, wheezing, others Cardiovascular: denies: chest pain, dizzy spells, diaphoresis, Dyspnea on exertion, edema, irregular heart beat, left arm pain, lightheadedness, palpitations, PND, syncope, others Gastrointestinal: denies: abdomen distended, abdominal pain, blood streaked bowels, constipated, diarrhea, dysphagia, difficulty swallowing, hematemesis, melena, nausea, poor appetite, poor fluid intake, rectal bleeding, rectal pain, vomiting, others Genitourinary: denies: burning, dysuria, flank pain, frequency, hematuria, incontinence, penile discharge, penile sore, pain, testicle pain, testicle swelling, urgency, others Neurological: denies: dizziness, fainting, headache, left sided numbness, left sided weakness, numbness, paresthesia, pre-existing deficit, right sided numbness, right sided weakness, seizure, speech problems, tingling, tremors, weakness, others Musculoskeletal: denies: back pain, gout, joint pain, joint swelling, muscle pain, muscle stiffness, neck pain, others Integumetry: denies: bruises, change in color, change in hair/nails, dryness, laceration, lesions, lumps, rash, wounds, others Allergic/Immunocompromised: denies: Difficulty Healing, Frequent Infections, Hives, Itching, others Hematologic/Lymphatic: denies: anemia, blood clots, easy bleeding, easy bruising, swollen glands, others Endocrine: denies: excessive hunger, excessive sweating, excessive thirst, excessive urination, flushing, intolerance to cold, intolerance to heat, unexplained weight gain, unexplained weight loss, others Psychiatric: denies: anxiety, bipolar disorder, depression, hopeless, panic disorder, schizophrenia, sleepless, suicidal, others All Other Systems: Reviewed and Negative Physical Exam General Appearance: No Apparent Distress, Normal HEENT: Normal ENT Inspection, Pharynx Normal, TMs Normal Neck: Full Range of Motion, Non-Tender, Normal, Normal Inspection Respiratory: Chest Non-Tender, Lungs Clear, No Accessory Muscle Use, No Respiratory Distress, Normal Breath Sounds Cardiovascular: No Edema, No JVD, No Murmur, No Gallop, Normal Peripheral Pulses, Regular Rate/Rhythm Breast Exam: Deferred Gastrointestinal: No Organomegaly, Non Tender, No Pulsatile Mass, Normal Bowel Sounds, Soft Genitalia: Deferred Pelvic: Deferred Rectal: Deferred Extremities: No calf tenderness, Normal capillary refill, Normal inspection, Normal range of motion, Non-tender, No pedal edema Musculoskeletal : Location: Right Apperance: Other (AKA) Neurologic: Alert, insurance healthcare representative II-XII nml as Tested, No Motor Deficits, Normal Affect, Normal Mood, No Sensory Deficits Cerebellar Function: Normal Reflexes: Normal Skin: Dry, Normal Color, Warm Lymphatic: No Adenopathy Was a procedure done? Was a procedure done?: No Differential Dx Differential Diagnosis: Anxiety, Asthma, CHF, COPD, Hyperventilation, Myocardial infarction, Panic Attack, Pneumonia, Pneumothorax, Pulmonary Embolism, Respiratory Distress, URI X-Ray, Labs, Meds, VS Vital Signs Date Time Temp Pulse Resp B/P (MAP) Pulse Ox O2 Delivery O2 Flow Rate FiO2 4/26/25 09:31 85 12/17/24 09:30 19 95 Room Air* 0 21 12/17/24 09:30 97.9 89 19 114/79 (91) 95 97.9 Lab Test 12/17/24 10:40 12/17/24 09:33 Range/Units Troponin I High Sensitivity 16 16 </=54 ng/L White Blood Count 11.1 H 4.4-10.8 10^3/uL Red Blood Count 4.11 L 4.5-5.90 10^6/uL Hemoglobin 11.4 L 13.5-17.5 g/dL Hematocrit 34.5 L 41.0-53.0 % Mean Corpuscular Volume 84.0 80.0-100.0 fL Mean Corpuscular Hemoglobin 27.8 L 28.0-32.0 pg Mean Corpuscular Hemoglobin Concent 33.1 32.0-36.0 g/dL Red Cell Distribution Width 15.6 H 11.8-14.3 % Platelet Count 227 140-450 10^3/uL Mean Platelet Volume 9.6 6.9-10.8 fL Neutrophils (%) (Auto) 85.1 H 37.0-80.0 % Lymphocytes (%) (Auto) 8.9 L 10.0-50.0 % Monocytes (%) (Auto) 4.5 0.0-12.0 % Eosinophils (%) (Auto) 1.1 0.0-7.0 % Basophils (%) (Auto) 0.4 0.0-2.0 % Neutrophils # (Auto) 9.5 H 1.6-8.6 10 ^3/uL Lymphocytes # (Auto) 1.0 0.4-5.4 10 ^3/uL Monocytes # (Auto) 0.5 0-1.3 10 ^3/uL Eosinophils # (Auto) 0.1 0-0.8 10 ^3/uL Basophils # (Auto) 0 0-0.2 10 ^3/uL Nucleated Red Blood Cells 0.0 % Sodium Level 145 136-145 mmol/L Potassium Level 3.5 3.5-5.1 mmol/L Chloride Level 114 H 98-107 mmol/L Carbon Dioxide Level 26 20-31 mmol/L Anion Gap 5 5-15 Blood Urea Nitrogen 12 9-23 mg/dL Creatinine 0.94 0.700-1.30 mg/dL Glomerular Filtration Rate Calc 95 >90 mL/min BUN/Creatinine Ratio 12.8 10.0-20.0 Serum Glucose 98 74-106 mg/dL Calcium Level 9.4 8.7-10.4 mg/dL B-Type Natriuretic Peptide 969.22 0-100 pg/mL Current Medications Medications (Trade) Dose Ordered Sig/Jackie Route Start Time Stop Time Status Last Admin Ceftriaxone Sodium 50 ml @ 100 mls/hr ONCE ONCE IV 12/17/24 11:30 12/17/24 11:59 12/17/24 11:50 [place] [id number] Ph: [phone] DIAGNOSTIC IMAGING Diagnostic Imaging Report : [id number] Signed PATIENT: ODNA BRYANT FACCT: [id number] UNIT: [id number] : 1970 LOC: ER ROOM / BED: / AGE / SEX: 54 / M ADM STATUS: REG ER SERVICE 6 ORDERING PHYSICIAN: HOLLI AMBRIZ MD PROCEDURE(s): CXR1 - CHEST XRAY 1 VIEW REASON: sob ORDER NUMBER(s): [id number], ACCESSION NUMBER(s): [id number] EXAM: XR Chest, 1 View CLINICAL INDICATION: sob TECHNIQUE: Frontal view of the chest. COMPARISON: XY CHEST PORTABLE on DOS: 10/07/24, XY CHEST PORTABLE on DOS: 10/06/24, XY CHEST PORTABLE on DOS: 10/03/24, XY CHEST XRAY 1 VIEW on DOS: 02/05/24, XY CHEST PORTABLE on DOS: 02/04/24 FINDINGS: LUNGS AND PLEURAL SPACES: Right basilar atelectasis or pneumonia. No pneumothorax. HEART: Unremarkable. No cardiomegaly. MEDIASTINUM: Unremarkable. Normal mediastinal contour. BONES/JOINTS: Unremarkable. No acute fracture. TUBES, LINES AND DEVICES: Left-sided cardiac pacemaker. OTHER FINDINGS: . IMPRESSION: Right basilar atelectasis or pneumonia. ATED BY: DONITA ALMANZA MD DICTATED DATE/TIME: 12/17/24 1019 SIGNED BY: DONITA ALMANZA MD SIGNED DATE/TIME: 12/17/24 1019 CC: Time of 1ST Reevaluation: 09:54 Reevaluation 1ST: Unchanged Patient Education/Counseling: Diagnosis, Treatment, Prognosis, Need For Follow Up Family Education/Counseling: No Family Present Additional Information Previous [facility] admission/discharge: 10/08/2024 dx NSTEMI, 04/16/2024 dx syncope and collapse, 02/05/2024 dx multi vessel CAD The following tests were ordered, and results were reviewed by me: EKG X3, CBC, BMP, BNP, TROP X3, CXR Additional Information was gathered from interviewing the following independent historians: NONE I reviewed and agreed with the following test results read by other providers: CXR I discussed treatment and results with medical personnel and: Patient Comprehensive systems review obtained and negative except for what is stated in the HPI. pt presents with moderate sob, but workup only shows possible pneumonia vs atelectasis. clinically, he does not have pneumonia. however he has an extensive cardiac history. i will admit him for anginal equivalent and unstable angina Departure 1 Departure Time of Disposition: 11:58 Impression: Primary Impression: Anginal equivalent Additional Impression: Unstable angina Disposition: ADMITTED INPATIENT Admit to: Tele Condition: Serious Discharged With: Self Critical Care Note Critical Care Time?: Yes (55 min-critical care time only) Critical care comment: Due to concerns for patients condition deteriorating, the care required my highest level of attention and readiness to intervene. I assessed the patient, reviewed the medical records, ordered the appropriate tests and treatments, then reassessed for results and responsiveness. I communicated with medical personnel and consultants and formulated a plan of care. Total critical care time excludes any procedures Stability Stability form required: No Heart Score Heart Score: Heart Score Response (Comments) Value History Slightly Suspicious 0 EKG Normal 0 Age 45-64 1 Risk Factors >3 or Hx ASHD 2 Troponin Normal limit 0 Total 3 I personally scribed for HOLLI AMBRIZ MD ([email or web address]) on 12/17/24 at 09:36. Electronically submitted by Matilda Mathew ([email or web address]). I personally scribed for HOLLI AMBRIZ MD ([employer]) on 12/17/24 at 10:24. Electronically submitted by Matilda Mathew ([email or web address]). HOLLI AMBRIZ MD Dec 17, 2024 09:36
[2024-12-17 10:08] LABS: Basophils # (auto) 0 10 ^3/uL (0-0.2); Basophils % (auto) 0.4 % (0.0-2.0); Eosinophils # (auto) 0.1 10 ^3/uL (0-0.8); Eosinophils % (auto) 1.1 % (0.0-7.0); Hematocrit 34.5 % (41.0-53.0); Hemoglobin 11.4 g/dL (13.5-17.5); Lymphocytes % (auto) 8.9 % (10.0-50.0); Mean Corpuscular Hemoglobin 27.8 pg (28.0-32.0); Mean Corpuscular Hgb Conc. 33.1 g/dL (32.0-36.0); Monocytes # (auto) 0.5 10 ^3/uL (0-1.3); Monocytes % (auto) 4.5 % (0.0-12.0); Neutrophils # (auto) 9.5 10 ^3/uL (1.6-8.6); Neutrophils % (auto) 85.1 % (37.0-80.0); Platelet Count (auto) 227 10^3/uL (140-450); Red Blood Cells 4.11 10^6/uL (4.5-5.90); Red Cell Distribution Width 15.6 % (11.8-14.3); White Blood Cell 11.1 10^3/uL (4.4-10.8)
[2024-12-17 10:09] LABS: Anion Gap 5 (5-15); Calcium 9.4 mg/dL (8.7-10.4); Carbon Dioxide 26 mmol/L (20-31)
[2024-12-17 10:14] LABS: BUN/Creatinine Ratio 12.8 (10.0-20.0); Blood Urea Nitrogen 12 mg/dL (9-23); Chloride 114 mmol/L (98-107); Glucose 98 mg/dL (74-106); Potassium 3.5 mmol/L (3.5-5.1); Sodium 145 mmol/L (136-145)
--- NOTE | 2024-12-17 10:22 | DVH ---
EXAM: XR Chest, 1 View CLINICAL INDICATION: sob TECHNIQUE: Frontal view of the chest. COMPARISON: XY CHEST PORTABLE on DOS: 10/07/24, XY CHEST PORTABLE on DOS: 10/06/24, XY CHEST PORTABLE on DOS: 10/03/24, XY CHEST XRAY 1 VIEW on DOS: 02/05/24, XY CHEST PORTABLE on DOS: 02/04/24 FINDINGS: LUNGS AND PLEURAL SPACES: Right basilar atelectasis or pneumonia. No pneumothorax. HEART: Unremarkable. No cardiomegaly. MEDIASTINUM: Unremarkable. Normal mediastinal contour. BONES/JOINTS: Unremarkable. No acute fracture. TUBES, LINES AND DEVICES: Left-sided cardiac pacemaker. OTHER FINDINGS: . IMPRESSION: Right basilar atelectasis or pneumonia.
[2024-12-17] MEDS: cefTRIAXone 1GM/50ML D5W 50 ML IV ONE ×2 (11:50→13:45)
--- NOTE | 2024-12-17 12:47 | DVHHP2 ---
History of Present Illness Reason for Visit: sob History of Present Illness 54-year-old male with extensive cardiac history including coronary artery disease (CAD) with WA x4, ICD placement, peripheral artery disease (PAD), congestive heart failure (CHF), along with hypothyroidism and diabetes mellitus, presenting with acute shortness of breath and cough. Per patient and , he developed shortness of breath this morning and used his home nebulizer treatment without relief. He denies fever, chest pain, or leg swelling but reports a productive cough. He presented to the ER for further evaluation.In the ED, labs showed WBC 11.1, hemoglobin 11.4, platelets 134.5, BMP unremarkable, troponins negative x2, and BNP 962.22. Chest X-ray revealed right basilar atelectasis vs. pneumonia. Given elevated BNP and imaging findings, concern for acute decompensated heart failure (ADHF) and community-acquired pneumonia (CAP). Will admit for management of CHF exacerbation and bacterial pneumonia. Cardiology consult placed with Dr. Arcos for further cardiac evaluation. Past Medical History see hpi above Past Surgical History see hpi above Family History Reviewed, non-contributory to the management of this case. Past Social History The patient lives at home, denies smoking, alcohol or illicit drugs abuse. Review of Systems Constitutional: No: Fever, Chills, Sweats, Weakness, Malaise, Other Eyes: No: Pain, Vision change, Conjunctivae inflammation, Eyelid inflammation, Other, Redness ENT: No: Ear pain, Ear discharge, Nose pain, Nose discharge, Nose congestion, Mouth pain, Mouth swelling, Throat pain, Throat swelling, Other Respiratory: Shortness of breath, SOB with excertion; No: Cough, Dry, Wheezing, Hemoptysis, Pleuritic Pain, Sputum, Wheezing, Other Cardiovascular: No: Chest Pain, Palpitations, Orthopnea, Paroxysmal Noc. Dyspnea, Edema, Lt Headedness, Other Gastrointestinal: No: Nausea, Vomiting, Abdominal Pain, Diarrhea, Constipation, Melena, Hematochezia, Other Genitourinary: No Dysuria, No Frequency, No Incontinence, No Hematuria, No Retention, No Other Musculoskeletal: No: other, neck pain, shoulder pain, arm pain, back pain, hand pain, leg pain, foot pain Skin: No: Rash, Lesions, Jaundice, Bruising, Other Neurological: No: Weakness, Numbness, Incoordination, Change in speech, Confusion, Seizures, Other Allergies: Coded Allergies: Banana (Verified Allergy, Unknown, itching, 11/21/24) Codeine (Verified Allergy, Unknown, 04/26/24) Morphine (Verified Allergy, Unknown, 04/26/24) Pear (Verified Allergy, Unknown, Swollen Tongue, 11/21/24) Exam Vital Signs Vital Signs Date Time Temp Pulse Resp B/P (MAP) Pulse Ox O2 Delivery O2 Flow Rate FiO2 12/17/24 12:00 98.0 83 15 126/88 (101) 92 98.0 12/17/24 10:05 Room Air* 0 21 General Appearance: Alert, Oriented X3, Cooperative, No acute distress HEENT: Atraumatic, PERRLA, EOMI, Mucous membr. moist/pink Respiratory: Other (diminished throughout ) Cardiovascular: Regular rate, Normal S1, Normal S2, No murmurs Abdominal: Normal bowel sounds, Soft, No tenderness, No hepatospenomegaly, No masses Extremities: No clubbing, No cyanosis, No edema, Normal pulses, No tenderness/swelling Skin: No rashes, No breakdown, No significant lesion Neuro: Normal gait, Normal speech, Strength at 5/5 X4 ext, Normal tone, Sensation intact, Cranial nerves 3-12 NL Psych/Mental Status: Mental status NL, Mood NL Labs/Xrays Chest x-ray shows right bibasilar atelectasis/pneumonia I reviewed labs, imaging CT scan abdomen pelvis, EKG and all diagnostic studies on this patient from ED records and the medical chart Labs Test 12/17/24 10:40 12/17/24 09:33 Range/Units Troponin I High Sensitivity 16 </=54 ng/L White Blood Count 11.1 H 4.4-10.8 10^3/uL Red Blood Count 4.11 L 4.5-5.90 10^6/uL Hemoglobin 11.4 L 13.5-17.5 g/dL Hematocrit 34.5 L 41.0-53.0 % Mean Corpuscular Volume 84.0 80.0-100.0 fL Mean Corpuscular Hemoglobin 27.8 L 28.0-32.0 pg Mean Corpuscular Hemoglobin Concent 33.1 32.0-36.0 g/dL Red Cell Distribution Width 15.6 H 11.8-14.3 % Platelet Count 227 140-450 10^3/uL Mean Platelet Volume 9.6 6.9-10.8 fL Neutrophils (%) (Auto) 85.1 H 37.0-80.0 % Lymphocytes (%) (Auto) 8.9 L 10.0-50.0 % Monocytes (%) (Auto) 4.5 0.0-12.0 % Eosinophils (%) (Auto) 1.1 0.0-7.0 % Basophils (%) (Auto) 0.4 0.0-2.0 % Neutrophils # (Auto) 9.5 H 1.6-8.6 10 ^3/uL Lymphocytes # (Auto) 1.0 0.4-5.4 10 ^3/uL Monocytes # (Auto) 0.5 0-1.3 10 ^3/uL Eosinophils # (Auto) 0.1 0-0.8 10 ^3/uL Basophils # (Auto) 0 0-0.2 10 ^3/uL Nucleated Red Blood Cells 0.0 % Sodium Level 145 136-145 mmol/L Potassium Level 3.5 3.5-5.1 mmol/L Chloride Level 114 H 98-107 mmol/L Carbon Dioxide Level 26 20-31 mmol/L Anion Gap 5 5-15 Blood Urea Nitrogen 12 9-23 mg/dL Creatinine 0.94 0.700-1.30 mg/dL Glomerular Filtration Rate Calc 95 >90 mL/min BUN/Creatinine Ratio 12.8 10.0-20.0 Serum Glucose 98 74-106 mg/dL Calcium Level 9.4 8.7-10.4 mg/dL B-Type Natriuretic Peptide 969.22 0-100 pg/mL Assessment/Plan Assessment/Plan 54-year-old male with CAD, CHF, ICD, PAD, diabetes, and hypothyroidism presenting with acute shortness of breath and cough, found to have pulmonary congestion and right lower lobe pneumonia. Will admit for management of acute decompensated heart failure and community-acquired pneumonia with cardiology involvement. Acute decompensated heart failure with elevated BNP and pulmonary congestion Start IV Lasix, monitor urine output and weight Strict I/O, daily weights Cardiology consult (Dr. Arcos) for CHF optimization, pt cards Continue beta-toro and ARNIE/ARB if hemodynamically stable Low-sodium diet, fluid restriction ~1.5L/day Repeat BNP as clinically indicated Monitor electrolytes and renal function acute Community-acquired bacterial pneumonia (right lower lobe) Initiate IV ceftriaxone plus azithromycin Monitor WBC, temperature, respiratory status Incentive spirometry Transition to PO antibiotics when stable monitor for resp distress acute leukocytosis likely from pna cont antibiotics CHRONIC PROBLEM LIST: Coronary Artery Disease with [place] x4 Congestive Heart Failure ICD Placement Peripheral Artery Disease Type 2 Diabetes Mellitus ISS Hypothyroidism anemia of chronic disease FEN / PROPHYLAXIS (PPx): Fluids/Electrolytes/Nutrition Cautious diuresis, monitor BMP daily Fluid restriction 1.5L/day Low-sodium, diabetic diet DVT Prophylaxis SCDs in place to left leg right leg bka GI Prophylaxis Pantoprazole 40 mg daily pt home dose DISPOSITION Admit to telemetry for CHF exacerbation and CAP management. Cardiology consult in place for heart failure optimization and ICD monitoring. Initiate IV diureti cs and antibiotics. Monitor respiratory and volume status, electrolytes, and glycemic control. Anticipate transition to oral therapies with discharge planning in coordination with cardiology. Plan discussed with: Patient Date of Service: Dec 17, 2024 Billing Provider: RYDER YANEZ DNP Common Visit Codes: [id number] INP/OBS CARE (HIGH) RYDER YANEZ DNP Dec 17, 2024 12:47
[2024-12-17 12:54] LABS: Urine Bacteria None Seen /hpf (None Seen)
[2024-12-17 13:30] LABS: Urine Blood Negative /uL (Negative); Urine Clarity Clear (Clear); Urine Color Colorless (Yellow); Urine Protein, UAD Negative (Negative); Urine Specific Gravity 1.008 (1.001-1.035); Urine Squamous Epithelial Cell None Seen /hpf (<5); Urine Urobilinogen Normal (Negative); Urine WBC < 1 /HPF (0-3); Urine pH 6.5 (5.0-9.0)
[2024-12-17] MEDS ORDERED: NITROGLYCERIN 0.4 MG SL TAB SL PRN (13:45)
[2024-12-17] MEDS: AZITHROMYCIN 500MG/ 250ML 250 ML IV ONE (14:40)
[2024-12-17] MEDS: HYDROcodone-ACET 10/325MG TAB PO PRN (15:45)
[2024-12-17] MEDS: PREGABALIN CAPSULE 75 MG CAP PO ONE (16:12)
[2024-12-17] MEDS ORDERED: PREGABALIN 25 MG CAP PO SCH (18:00)
[2024-12-17] MEDS: IPRATROPIUM BROM 0.5 MG/2.5ML INH SOL NEB PRN (21:59)
[2024-12-17] MEDS: ALBUTEROL SULF 2.5 MG/0.5ML(0.5%) NEB SOLN NEB PRN (22:00)
[2024-12-17] MEDS: REMERON PO SCH (22:00)
[2024-12-17] MEDS: ATORVASTATIN 20 MG TAB PO SCH (22:05)
[2024-12-17] MEDS: PREGABALIN CAPSULE 75 MG CAP PO SCH (22:06)
[2024-12-17] MEDS: APIXABAN 2.5 MG TAB PO SCH (22:06)
[2024-12-18] VITALS (17 sets, daily range): BP systolic 117–139; BP diastolic 78–86; PULSE 91–109; RESP 17–20; TEMP 98.1–98.8; O2SAT 62–100
[2024-12-18] MEDS: ALBUTEROL SULF 2.5 MG/0.5ML(0.5%) NEB SOLN NEB SCH (00:45)
[2024-12-18] MEDS: IPRATROPIUM BROM 0.5 MG/2.5ML INH SOL NEB SCH (00:46)
[2024-12-18] MEDS: FUROSEMIDE 20 MG/2 ML VIAL IV ONE (01:25)
[2024-12-18 08:48] LABS: Calcium 9.7 mg/dL (8.7-10.4); Potassium 3.5 mmol/L (3.5-5.1); Sodium 144 mmol/L (136-145)
[2024-12-18 08:49] LABS: Anion Gap 10 (5-15); Carbon Dioxide 23 mmol/L (20-31)
[2024-12-18 08:50] LABS: Chloride 111 mmol/L (98-107)
[2024-12-18 08:54] LABS: BUN/Creatinine Ratio 13.8 (10.0-20.0); Blood Urea Nitrogen 12 mg/dL (9-23); Glucose 103 mg/dL (74-106)
[2024-12-18] MEDS: ASPirin-EC 81 mg tab PO SCH (09:53)
[2024-12-18] MEDS: CLOPIDOGREL BISULFATE 75 MG TAB PO SCH (09:53)
[2024-12-18] MEDS: PANTOPRAZOLE 40 MG TAB PO SCH (09:53)
[2024-12-18] MEDS: LEVOTHYROXINE SODIUM 25 MCG TAB PO SCH (09:53)
[2024-12-18] MEDS: cefTRIAXone 1GM/50ML D5W 50 ML IV SCH (09:54)
[2024-12-18] MEDS: AZITHROMYCIN 500MG/ 250ML 250 ML IV SCH (11:32)
[2024-12-18 18:52] LABS: COVID19 ANTIGEN SOFIA FIA NEGATIVE (NEGATIVE); Rapid Influenza A Negative (Negative); Rapid Influenza B Negative (Negative)
--- NOTE | 2024-12-18 19:33 | DVHPN2 ---
Subjective 12/18 patient here presenting with shortness of breath and cough. Patient has extensive history of coronary artery disease with stents, systolic CHF with AICD/ppm, PID, diabetes, hypothyroid. Patient on initial evaluation in ED appears to be volume overload BNP elevated. Patient was admitted for pneumonia and CHF. We will continue patient antibiotics and many some more further Lasix. On exam patient had decreased lower lobe sounds and has trace to +1 pitting edema. No wheezing. Reviewed: H&P Changes from previous H/P or p: No Changes General: Per HPI Eyes: No Pain, No Vision change, No Conjunctivae inflammation, No Eyelid inflammation, No Other, No Redness ENT: No Ear pain, No Ear discharge, No Nose pain, No Nose discharge, No Nose congestion, No Mouth pain, No Mouth swelling, No Throat pain, No Throat swelling, No Other Cardiovascular: No Chest Pain, No Palpitations, No Orthopnea, No Paroxysmal Noc. Dyspnea, No Edema, No Lt Headedness, No Other Respiratory: No Cough, No Dry; Shortness of breath, SOB with excertion; No Wheezing, No Hemoptysis, No Pleuritic Pain, No Sputum, No Other Gastrointestinal: No Nausea, No Vomiting, No Abdominal Pain, No Diarrhea, No Constipation, No Melena, No Hematochezia, No Other Genitourinary: No Dysuria, No Frequency, No Incontinence, No Hematuria, No Retention, No Other Musculoskeletal: No other, No neck pain, No shoulder pain, No arm pain, No back pain, No hand pain, No leg pain, No foot pain Skin: No Rash, No Lesions, No Jaundice, No Bruising, No Other Objective Vitals Vital Signs Date Time Temp Pulse Resp B/P (MAP) Pulse Ox O2 Delivery O2 Flow Rate FiO2 12/18/24 17:00 98.2 93 18 119/83 (95) 99 98.2 12/18/24 10:00 Nasal Cannula 2.0 12/18/24 10:00 28 Intake/Output Intake and Output 12/18/24 07:00 Intake Total 590 ml Output Total 250 ml Balance 340 ml Intake Oral 540 ml IV Total 50 ml Output Urine Total 250 ml Exam GEN: Healthy appearing, well-developed, NAD. HEENT: NC/AT; MMM. CV: RRR, no m/r/g. LUNGS: decreased lower lobe sounds and has trace to +1 pitting edema. No wheezing. ABD: Soft, NT/ND, NBS, no masses or organomegaly. EXT: skin Warm, well perfused. no rashes. trace to +1 pitting edema. NEURO: Ambulating with no limitations. No focal deficits. Medications Current Medications Medications Dose Ordered Sig/Jackie Route Start Time Stop Time Status Last Admin Dose Admin Ceftriaxone Sodium 50 ml @ 100 mls/hr DAILY@09 IV 12/18/24 09:00 12/18/24 09:54 100 MLS/HR Azithromycin 250 ml @ 125 mls/hr DAILY IV 12/18/24 10:00 12/18/24 11:32 125 MLS/HR Apixaban 2.5 mg BID PO 12/17/24 22:00 12/18/24 09:53 2.5 MG Aspirin 81 mg DAILY PO 12/18/24 10:00 12/18/24 09:53 81 MG Clopidogrel Bisulfate 75 mg DAILY PO 12/18/24 10:00 12/18/24 09:53 75 MG Acetaminophen/ Hydrocodone Bitart 1 tab QID PRN PO 12/17/24 13:45 12/18/24 00:37 1 TAB Levothyroxine Sodium 25 mcg DAILY PO 12/18/24 10:00 12/18/24 09:53 25 MCG Pantoprazole Sodium 40 mg DAILY PO 12/18/24 10:00 12/18/24 09:53 40 MG Atorvastatin Calcium 80 mg HS PO 12/17/24 22:00 12/17/24 22:05 80 MG Patient Own Medication 1 tab BID PO 12/17/24 22:00 Patient Own Medication 1 tab DAILY PO 12/18/24 10:00 Patient Own Medication 1 tab DAILYP PO 12/18/24 10:00 Nitroglycerin 0.4 mg Q5MINP PRN SL 12/17/24 13:45 Pregabalin 150 mg TID PO 12/17/24 22:00 12/18/24 14:18 150 MG Albuterol 2.5 mg Q6HPRN PRN NEB 12/17/24 21:30 12/17/24 22:00 2.5 MG Ipratropium [place] 0.5 mg Q6HPRN PRN NEB 12/17/24 21:30 12/17/24 21:59 0.5 MG Albuterol 2.5 mg Q6HR NEB 12/18/24 00:00 12/18/24 11:38 2.5 MG Ipratropium [place] 0.5 mg Q6HR NEB 12/18/24 00:00 12/18/24 11:38 0.5 MG Laboratory Results Laboratory Tests 12/17/24 09:33 12/18/24 07:31 Chemistry Test 12/18/24 07:31 Calcium Level 9.7 mg/dL (8.7-10.4) Urinalysis Test 12/17/24 12:52 Urine Color Colorless (Yellow) Urine Clarity Clear (Clear) Urine pH 6.5 (5.0-9.0) Urine Specific [place] 1.008 (1.001-1.035) Urine Protein Negative (Negative) Urine Ketones Negative (Negative) Urine Blood Negative /uL (Negative) Urine Nitrite Negative (Negative) Urine Bilirubin Negative (Negative) Urine Urobilinogen Normal mg/dL (Negative) Urine Leukocyte Esterase Negative /uL (Negative) Urine RBC None seen /hpf (0 - 3) Urine Microscopic WBC < 1 /HPF (0-3) Urine Squamous Epithelial Cells None seen /hpf (<5) Urine Bacteria None seen /hpf (None Seen) Urine Glucose Normal mg/dL (Normal) Labs and/or images reviewed: Labs reviewed by me, Image(s) reviewed by me Assessment/Plan Assessment/Plan 12/18 patient here presenting with shortness of breath and cough. Patient has extensive history of coronary artery disease with stents, systolic CHF with AICD/ppm, PID, diabetes, hypothyroid. Patient on initial evaluation in ED appears to be volume overload BNP elevated. Patient was admitted for pneumonia and CHF. We will continue patient antibiotics and many some more further Lasix. On exam patient had decreased lower lobe sounds and has trace to +1 pitting edema. No wheezing. Acute pneumonia, Gram-negative/Gram-positive likely Acute on chronic exacerbation of heart failure, diastolic and systolic likely COPD, not in exacerbation Diabetes with hyperglycemia Hypothyroid Peripheral artery disease -IV Lasix 40 mg daily Continuing IV antibiotics for pneumonia -continue other home medications for hypothyroid, diabetes -mild a.c. HS SSI for diabetes Diet cardiac and low carb On telemetry DVT prophylaxis GI prophylaxis patient tolerating diet Plan discussed with: Patient Date of Service: Dec 18, 2024 Billing Provider: ROSY BEAN MD Common Visit Codes: [id number] INP/OBS CARE(HIGH) ROSY BEAN MD Dec 18, 2024 19:33
[2024-12-19] VITALS (15 sets, daily range): BP systolic 95–121; BP diastolic 71–97; PULSE 82–102; RESP 14–20; TEMP 97–98.5; O2SAT 94–100
[2024-12-19] MEDS: FUROSEMIDE 20 MG/2 ML VIAL IV SCH (06:43)
[2024-12-19 08:24] LABS: Basophils # (auto) 0 10 ^3/uL (0-0.2); Basophils % (auto) 0.2 % (0.0-2.0); Eosinophils # (auto) 0.1 10 ^3/uL (0-0.8); Eosinophils % (auto) 0.6 % (0.0-7.0); Hematocrit 37.5 % (41.0-53.0); Hemoglobin 12.4 g/dL (13.5-17.5); Lymphocytes # (auto) 1.7 10 ^3/uL (0.4-5.4); Mean Corpuscular Hemoglobin 27.7 pg (28.0-32.0); Mean Corpuscular Hgb Conc. 33.2 g/dL (32.0-36.0); Mean Corpuscular Volume 83.6 fL (80.0-100.0); Monocytes # (auto) 0.8 10 ^3/uL (0-1.3); Monocytes % (auto) 5.3 % (0.0-12.0); Neutrophils # (auto) 11.9 10 ^3/uL (1.6-8.6); Neutrophils % (auto) 81.9 % (37.0-80.0); Platelet Count (auto) 239 10^3/uL (140-450); Red Blood Cells 4.49 10^6/uL (4.5-5.90); Red Cell Distribution Width 15.3 % (11.8-14.3); White Blood Cell 14.5 10^3/uL (4.4-10.8)
[2024-12-19 08:53] LABS: Alanine Aminotransferase 15 U/L (7-40); Alkaline Phosphatase 103 U/L (46-116); Anion Gap 10 (5-15); BUN/Creatinine Ratio 12.4 (10.0-20.0); Blood Urea Nitrogen 12 mg/dL (9-23); Carbon Dioxide 25 mmol/L (20-31); Sodium 142 mmol/L (136-145); Total Protein 8.2 g/dL (5.7-8.2)
[2024-12-19 08:56] LABS: Albumin 4.9 g/dL (3.2-4.8); Aspartate Aminotransferase 12 U/L (13-40); Bilirubin, Total 6.1 mg/dL (0.2-1.0); Chloride 107 mmol/L (98-107); Glucose 110 mg/dL (74-106); Potassium 2.8 mmol/L (3.5-5.1)
--- NOTE | 2024-12-19 10:50 | ECG ---
[facility] Test Date: 2024-12-17 Test Time: 09:31:25 Pat Name: DONA BRYANT Department: ER Room: 0296T Gender: M Vp Talent Management: CATALINO : 1970 Requested By: HOLLI AMBRIZ Order Number: [id number] Reading MD: Measurements Intervals [place] Rate: 85 P: 62 NV: 194 QRS: 90 QRSD: 121 T: -32 QT: 406 QTc: 483 Interpretive Statements Atrial-sensed ventricular-paced complexes No further analysis attempted due to paced rhythm Please click the below link to view image of tracing.
--- NOTE | 2024-12-19 13:07 | DVHPN2 ---
Progress Note - Dictate Date Seen: Dec 18, 2024 Medical Necessity Reason Pt with a Central, PICC or Fol: No Subjective PT WITH ISCHEMIC CM EF <20% LVE S/P PTCA STENT OSTIAL LA S/P PTCA STENT OSTIAL OM1 S/P PTCA STENT OSTIAL CX S/P STENT DISTAL LEFT MAIN EXTENDING INTO LA AND CX NOW WITH HYPOKALEMIA ACUTE HFrEF vital signs Vital Sign Date Time Temp Pulse Resp B/P (MAP) Pulse Ox O2 Delivery O2 Flow Rate FiO2 12/19/24 11:48 100 14 100 12/19/24 09:45 Nasal Cannula 12/19/24 09:45 2 28 12/19/24 09:00 98.2 118/76 (90) 98.2 Total Intake and Output 12/18/24 12/18/24 12/19/24 15:00 23:00 07:00 Intake Total 300 ml 750 ml 240 ml Output Total 0 ml Balance 300 ml 750 ml 240 ml medications Current Medications Medications Dose Ordered Sig/Jackie Route Start Time Stop Time Status Last Admin Dose Admin Ceftriaxone Sodium 50 ml @ 100 mls/hr DAILY@09 IV 12/18/24 09:00 12/19/24 09:48 100 MLS/HR Azithromycin 250 ml @ 125 mls/hr DAILY IV 12/18/24 10:00 12/19/24 10:00 125 MLS/HR Apixaban 2.5 mg BID PO 12/17/24 22:00 12/19/24 09:46 2.5 MG Aspirin 81 mg DAILY PO 12/18/24 10:00 12/19/24 09:46 81 MG Clopidogrel Bisulfate 75 mg DAILY PO 12/18/24 10:00 12/19/24 09:46 75 MG Acetaminophen/ Hydrocodone Bitart 1 tab QID PRN PO 12/17/24 13:45 12/19/24 09:47 1 TAB Levothyroxine Sodium 25 mcg DAILY PO 12/18/24 10:00 12/19/24 09:46 25 MCG Pantoprazole Sodium 40 mg DAILY PO 12/18/24 10:00 12/19/24 09:46 40 MG Atorvastatin Calcium 80 mg HS PO 12/17/24 22:00 12/18/24 22:27 80 MG Patient Own Medication 1 tab BID PO 12/17/24 22:00 Patient Own Medication 1 tab DAILY PO 12/18/24 10:00 Patient Own Medication 1 tab DAILYP PO 12/18/24 10:00 Nitroglycerin 0.4 mg Q5MINP PRN SL 12/17/24 13:45 Pregabalin 150 mg TID PO 12/17/24 22:00 12/19/24 06:40 150 MG Albuterol 2.5 mg Q6HR NEB 12/18/24 00:00 12/19/24 11:40 2.5 MG Ipratropium [place] 0.5 mg Q6HR NEB 12/18/24 00:00 12/19/24 11:40 0.5 MG Furosemide 20 mg BIDD IV 12/19/24 06:00 12/19/24 06:43 20 MG laboratory and microbiology Laboratory Tests 12/19/24 07:50 Test 12/19/24 07:50 Range/Units Serum Glucose 110 H 74-106 mg/dL Problem List ISCHEMIC CM EF <20% LVE S/P PTCA STENT OSTIAL LA S/P PTCA STENT OSTIAL OM1 S/P PTCA STENT OSTIAL CX S/P STENT DISTAL LEFT MAIN EXTENDING INTO LA AND CX NOW WITH HYPOKALEMIA ACUTE HFrEF LEUKOCYTOSIS BIBASILAR ATELECTASIS Assessment/Plan CORRECT K ABX CONSIDER LASIX DRIP WITH DOBUTAMINE INFUSION Plan discussed with: Patient Critical Care Time(min): 35 BUSHRA MARQUES MD Dec 19, 2024 13:07
[2024-12-19] MEDS ORDERED: ACETAMINOPHEN 325 MG TAB PO PRN (13:30)
--- NOTE | 2024-12-19 13:35 | DVHSR ---
APPROVED REPORT EXAM: Two-dimensional and M-mode echocardiogram with Doppler and color Doppler. Blood Pressure: 126/88 mmHg INDICATION Eval for cardiac function and ef RISK FACTORS Height: 5'9", Weight: 173 DIMENSIONS LVDd7.1 (3.8-5.7cm)LA (2D)4.9 (1.9-4.0cm)Aortic Root3.2 (2.0-3.7cm) LVDs6.7 (2.5-4.0cm)LA (MM) (1.9-4.0cm)Aortic Cusp Exc1.5 (1.5-2.0cm) EF (%) 15.0 (55-70%)Rt. Atrium4.0 (1.9-4.0cm)Asc. Aorta cm IVSd1.0 (0.7-1.1cm)RV (D)3.5 (1.8-2.4cm) PWd1.1 (0.7-1.1cm) Mitral Valve MitralMitral Stenosis E wave1.12m/sMV Mean GR.mmHg E/A ratio0.02D MVAcm2 Aortic Valve Aortic ValveAortic Stenosis V10.72m/Michelle Mean GR.3mmHg V21.19m/Michelle Peak GR.6mmHg LVOT Diameter2.1 (1.8-2.4cm)Doppler AVA2.09cm2 Tricuspid Valve TR Velocity3.81m/s [id number] Conclusion LAE JORDY LVE EF <20% MOD MR SEVERE PAH
[2024-12-19] MEDS ORDERED: DOXY1CAP57 PO (14:23)
[2024-12-19] MEDS: POTASSIUM EFFERVESENT TAB 25 MEQ PO ONE ×2 (14:30→15:00)
[2024-12-19] MEDS: SODIUM CHL 0.9% 100 ML IV ONE (14:30)
--- NOTE | 2024-12-19 14:34 | DVHDS2 ---
Discharge Summary Date of Admission Dec 17, 2024 at 13:37 Date of Discharge: Dec 19, 2024 Labs/Diagnostic Data: Laboratory Results Test 12/19/24 07:50 12/18/24 17:20 12/17/24 13:27 12/17/24 12:52 White Blood Count 14.5 10^3/uL (4.4-10.8) Red Blood Count 4.49 10^6/uL (4.5-5.90) Hemoglobin 12.4 g/dL (13.5-17.5) Hematocrit 37.5 % (41.0-53.0) Mean Corpuscular Volume 83.6 fL (80.0-100.0) Mean Corpuscular Hemoglobin 27.7 pg (28.0-32.0) Mean Corpuscular Hemoglobin Concent 33.2 g/dL (32.0-36.0) Red Cell Distribution Width 15.3 % (11.8-14.3) Platelet Count 239 10^3/uL (140-450) Mean Platelet Volume 9.5 fL (6.9-10.8) Neutrophils (%) (Auto) 81.9 % (37.0-80.0) Lymphocytes (%) (Auto) 12.0 % (10.0-50.0) Monocytes (%) (Auto) 5.3 % (0.0-12.0) Eosinophils (%) (Auto) 0.6 % (0.0-7.0) Basophils (%) (Auto) 0.2 % (0.0-2.0) Neutrophils # (Auto) 11.9 10 ^3/uL (1.6-8.6) Lymphocytes # (Auto) 1.7 10 ^3/uL (0.4-5.4) Monocytes # (Auto) 0.8 10 ^3/uL (0-1.3) Eosinophils # (Auto) 0.1 10 ^3/uL (0-0.8) Basophils # (Auto) 0 10 ^3/uL (0-0.2) Nucleated Red Blood Cells 0.0 % Sodium Level 142 mmol/L (136-145) Potassium Level 2.8 mmol/L (3.5-5.1) Chloride Level 107 mmol/L (98-107) Carbon Dioxide Level 25 mmol/L (20-31) Anion Gap 10 (5-15) Blood Urea Nitrogen 12 mg/dL (9-23) Creatinine 0.97 mg/dL (0.700-1.30) Glomerular Filtration Rate Calc 92 mL/min (>90) BUN/Creatinine Ratio 12.4 (10.0-20.0) Serum Glucose 110 mg/dL (74-106) Calcium Level 10.0 mg/dL (8.7-10.4) Total Bilirubin 6.1 mg/dL (0.2-1.0) Aspartate Amino Transferase (AST) 12 U/L (13-40) Alanine Aminotransferase (ALT) 15 U/L (7-40) Alkaline Phosphatase 103 U/L (46-116) Total Protein 8.2 g/dL (5.7-8.2) Albumin 4.9 g/dL (3.2-4.8) Influenza Type A Antigen Negative (Negative) Influenza Type B Antigen Negative (Negative) SARS-CoV-2 Antigen (Rapid) Negative (NEGATIVE) Magnesium Level 2.0 mg/dL (1.6-2.6) Troponin I High Sensitivity 17 ng/L (</=54) Urine Color Colorless (Yellow) Urine Clarity Clear (Clear) Urine pH 6.5 (5.0-9.0) Urine Specific [place] 1.008 (1.001-1.035) Urine Protein Negative (Negative) Urine Ketones Negative (Negative) Urine Blood Negative /uL (Negative) Urine Nitrite Negative (Negative) Urine Bilirubin Negative (Negative) Urine Urobilinogen Normal mg/dL (Negative) Urine Leukocyte Esterase Negative /uL (Negative) Urine RBC None seen /hpf (0 - 3) Urine Microscopic WBC < 1 /HPF (0-3) Urine Squamous Epithelial Cells None seen /hpf (<5) Urine Bacteria None seen /hpf (None Seen) Urine Glucose Normal mg/dL (Normal) Test 12/17/24 09:33 B-Type Natriuretic Peptide 969.22 pg/mL (0-100) Other Laboratory Tests 12/19/24 07:50 Brief Hx & Hospital Course: HPI: 54-year-old male with extensive cardiac history including coronary artery disease (CAD) with [place] x4, ICD placement, peripheral artery disease (PAD), congestive heart failure (CHF), along with hypothyroidism and diabetes mellitus, presenting with acute shortness of breath and cough. Per patient and , he developed shortness of breath this morning and used his home nebulizer treatment without relief. He denies fever, chest pain, or leg swelling but reports a productive cough. Summary: Patient presented with shortness of breath and cough..In the ED, labs showed WBC 11.1, hemoglobin 11.4, platelets 134.5, BMP unremarkable, troponins negative x2, and BNP 962.22. Chest X-ray revealed right basilar atelectasis vs. pneumonia. Rapid Flu and COVID negative.. Given elevated BNP and imaging findings, concern for acute decompensated heart failure (ADHF) and community- acquired pneumonia (CAP). Patient continued home medications, fluid restriction, IV diuretics started, cardiology consulted, started on IV antibiotics for pneumonia,. Patient was significant improvement by 12/19. Significant clinical improvement even though WBCs increasing. We will continue to treat outpatient and have follow up closely with PCP. Diagnosis: Acute pneumonia, Gram-negative/Gram-positive likely Acute on chronic exacerbation of heart failure, diastolic and systolic likely COPD, not in exacerbation Hypokalemia, repleted Diabetes with hyperglycemia Hypothyroid Peripheral artery disease Discharge plan: Take doxycycline 100 mg twice daily for 7 days Continue other home medications Continue Cardiac and diabetic/low carb diet Follow up with PCP . PCP to repeat CBC to trend WBC count and follow up with patient on symptoms resolution. Condition at Discharge: Fair Final Diagnosis/Problems List Acute pneumonia, Gram-negative/Gram-positive likely Acute on chronic exacerbation of heart failure, diastolic and systolic likely COPD, not in exacerbation Hypokalemia, repleted Diabetes with hyperglycemia Hypothyroid Peripheral artery disease Discharge Disposition: Home Discharge Instruct/Medications Diet: Consistent carbohydrate, Cardiac 2g Na,low cholest Activity: No Restrictions, As Tolerated Follow Up/Referral: below Medications: below Discharge Statement: "Patient was advised to return to the ER or call 911 if any headaches, dizziness, shortness of breath, chest pain, abdominal pain, bleeding, fevers, or worsening of medical condition. Patient was counseled about treatment plan, medications, possible side effects, patientverbalized understanding. All questions were answered to the best of my ability. This discharge took greater then 30 minutes in planning, reviewing documentation, counseling the patient, and discussing with other team members." Date of Service: Dec 19, 2024 Billing Provider: ROSY BEAN MD Common Visit Codes: [id number] DISCH DAY >30min ROSY BEAN MD Dec 19, 2024 14:34
[2024-12-19] MEDS: POTASSIUM CHL 20MEQ/50ML 100 ML IV ONE (15:01)
[2024-12-19] MEDS: POTASSIUM CHL 20 Meq TABLET PO ONE (16:49)
== END 2024-12-19 18:30 | disposition home or self-care (01) | DRG 194 ==
LOC: EDUNIT# 09:13 → ER 09:13 → OVERFLOW 13:37 → TELE-WESTW 17:43
PROVIDERS: ADMIT Student in an Organized Health Care Education/Training Program; ATTEND Student in an Organized Health Care Education/Training Program
DX: I50.43 Acute on chronic combined systolic (congestive) and diastolic (congestive) heart failure (principal); J15.69 Pneumonia due to other Gram-negative bacteria; D63.8 Anemia in other chronic diseases classified elsewhere; J15.9 Unspecified bacterial pneumonia; J44.0 Chronic obstructive pulmonary disease with (acute) lower respiratory infection; E11.51 Type 2 diabetes mellitus with diabetic peripheral angiopathy without gangrene; I25.110 Atherosclerotic heart disease of native coronary artery with unstable angina pectoris; E11.65 Type 2 diabetes mellitus with hyperglycemia; E03.9 Hypothyroidism, unspecified; I25.5 Ischemic cardiomyopathy; Z20.822 Contact with and (suspected) exposure to COVID-19; E87.6 Hypokalemia; Z95.810 Presence of automatic (implantable) cardiac defibrillator; I25.2 Old myocardial infarction; Z79.899 Other long term (current) drug therapy; Z95.5 Presence of coronary angioplasty implant and graft; Z89.511 Acquired absence of right leg below knee; Z88.5 Allergy status to narcotic agent; Z91.018 Allergy to other foods
CPT/HCPCS: 36415; 71045; 80048; 80053; 81001; 83735; 83880; 84484; 85025; 87426; 87804; 93005; 93306; 94640; 96365; 96367; 99291; G0378

== ENCOUNTER 2024-12-17 09:16 | Emergency (ER) | payer MEDICAID | END 2024-12-17 09:17 | disposition left against medical advice (07) | LOC: ER 09:16 | DX: R06.02 Shortness of breath (principal); Z53.21 Procedure and treatment not carried out due to patient leaving prior to being seen by health care provider ==